=== PATIENT | female | born 1960 | race Caucasian/White ===

== ENCOUNTER → 2018-02-19 | Outpatient (CLI) | payer BC ==
[~2018-02-19] MED LIST: CETI10TA20 PO; ESTR1TAB24 PO; FLUT9.9S NSEACH; GUAI1CAP52 PO; HYDR-34 PO; IBUP-1773 PO; LEVO75TA6 PO; LORA10TA76 PO; MEDR5TAB4 PO; TRAZ-189 PO
--- NOTE | 2018-02-19 12:02 | Diagnostic Imaging Report ---
INDICATION: Routine screening. COMPARISON: 05/13/2016 and 04/13/2012. TECHNIQUE: Screening digital mammography was performed bilaterally with a Computer Aided Detection (CAD) system. 3D tomographic images were obtained and reviewed. FINDINGS: Both breasts are heterogeneously dense, limiting the sensitivity of mammography. There are benign-appearing calcifications bilaterally. No dominant mass or malignant appearing microcalcifications are seen. The axillae are unremarkable. IMPRESSION: No mammographic features suspicious for malignancy are identified. ACR BI-RADS Category 2: Benign findings. Result letter will be mailed to the patient. Note: At least 10% of breast cancer is not imaged by mammography. Dictated by: Dictated on workstation # [id number]
== END ==
LOC: RAD 09:53
PROVIDERS: ATTEND Obstetrics & Gynecology
DX: Z12.31 Encounter for screening mammogram for malignant neoplasm of breast (principal)
CPT/HCPCS: 77067

== ENCOUNTER 2019-02-24 08:57 | Outpatient (CLI) | payer BC ==
[~2019-02-24] VITALS: Ht 162.6 cm; Wt 64.4 kg
== END 2019-02-24 12:45 | disposition home or self-care (01) ==
LOC: PREOP 08:57
PROVIDERS: ATTEND Surgery
DX: Z01.818 Encounter for other preprocedural examination (principal)

== ENCOUNTER 2019-02-25 13:41 | Day surgery (SDC) | payer BC ==
[~2019-02-25] VITALS: Ht 162.6 cm; Wt 64.4 kg
[2019-02-25 13:40] VITALS: BP 124/73
--- NOTE | 2019-02-25 13:48 | Conscious Sedation/ASA ---
Conscious Sedation Pre-Proced Time 13:45 ASA Score 2 For ASA 3 and 4: Consider anesthesia and medical clearance. Also, for patients with a history of failed moderate sedation consider anesthesia. Airway Lungs Heart ASA score ASA 1: a normal healthy patient ASA 2: a patient with a mild systemic disease (mid diabetes, controlled hypertension, obesity ASA 3: a patient with a severe systemic disease that limits activity (angina , COPD, prior Myocardial infarction) ASA 4: a patient with an incapacitating disease that is a constant threat to life (CHF, renal failure) ASA 5: a moribund patient not expected to survive 24 hrs. (ruptured aneurysm) ASA 6: a declared brain- patient whose organs are being harvested. For emergent operations, add the letter E after the classification Mallampati Classification Grade 2 Sedation Plan Analgesia, Amnesia, Plan communicated to team members, Discussed options with patient/fam, Discussed risks with patient/fam The patient is an appropriate candidate to undergo the planned procedure, sedation, and anesthesia. The patient immediately re-assessed prior to indication. BARBI BAER MD Feb 25, 2019 13:48
[2019-02-25] MEDS ORDERED: NS IV 500 ML 500 ML IV PRN (13:49)
--- NOTE | 2019-02-25 13:49 | Progress Note-Pre Operative ---
Pre-Operative Progress Note H&P Reviewed The H&P was reviewed, patient examined and no changes noted. Date Seen by Provider: Feb 25, 2019 Time Seen by Provider: 13:45 Date H&P Reviewed: Feb 25, 2019 Time H&P Reviewed: 13:45 Pre-Operative Diagnosis: screening o BARBI BAER MD Feb 25, 2019 13:49
[2019-02-25] MEDS ORDERED: NS IV 500 ML 500 ML ONE (13:55)
[2019-02-25] MEDS ORDERED: ACETAMINOPHEN 325 MG TABLET PO PRN (14:00)
[2019-02-25] MEDS ORDERED: morphine INJ 10 MG/ML 1ML (SYR OR VIAL) IV PRN (14:00)
[2019-02-25] MEDS ORDERED: LIDOCAINE JELLY 2% 6 ML SYRINGE MM PRN (14:00)
[2019-02-25] MEDS ORDERED: MIDAZOLAM 2 MG/2 ML (VERSED) VIAL IVP ONE (14:00)
[2019-02-25] MEDS ORDERED: ONDANSETRON 4 MG/2 ML (SDV) Z0FRAN IV PRN (14:00)
[2019-02-25] MEDS ORDERED: HYDROcodone/APAP 5 MG/325 MG (LORTAB) TAB PO PRN (14:00)
[2019-02-25] MEDS ORDERED: fentaNYL INJECTION 100 MCG/2 ML AMP ONE ×2 (15:00)
[2019-02-25] MEDS ORDERED: LIDOCAINE JELLY 2% 6 ML SYRINGE ONE (15:00)
[2019-02-25] MEDS ORDERED: MIDAZOLAM 2 MG/2 ML (VERSED) VIAL ONE ×3 (15:01)
[2019-02-25] MEDS: fentaNYL INJECTION 100 MCG/2 ML AMP IVP ONE (15:20)
[2019-02-25 16:20] VITALS: BP 112/63
--- NOTE | 2019-02-25 16:34 | Progress Note-Post Operative ---
Post-Operative Progess Note Surgeon (s)/Oilseed Meat Presser (s) Surgeon BARBI BAER MD Oilseed Meat Presser: none Pre-Operative Diagnosis screening colo Post-Operative Diagnosis chronic stage 2 ext and int hemorrhoids. Procedure & Operative Findings Date of Procedure 02/25/19 Procedure Performed/Findings Colonoscopy. Anesthesia Type cs Estimated Blood Loss Estimated blood loss (mL): minimal Specimens/Packing Specimens Removed none BARBI BAER MD Feb 25, 2019 16:34
--- NOTE | 2019-02-25 16:36 | Discharge Inst-Surgical ---
D/C Lap Instructions-KEYUR Follow Up 10 yrs Activity as tolerated High Fiber Diet 25g or more per day Avoid Alcohol, Caffeine, Spicy [place] and Acid foods. Drink 64 fluid oz or more of fluids per day. Symptoms to Report: Fever over 101 degree F, Nausea/Vomiting If any problems/questions: Contact your physician or go to Emergency Room BARBI BAER MD Feb 25, 2019 16:36
[2019-02-25 16:45] VITALS: BP 127/74
[2019-02-25 16:55] VITALS: BP 127/74
--- NOTE | 2019-02-26 01:53 | OPERATIVE REPORT ---
DATE OF SERVICE: 02/25/2019 ATTENDING PRIMARY CARE PHYSICIAN: Dr. Divina Kovacs. PREOPERATIVE DIAGNOSIS: Screening colonoscopy. POSTOPERATIVE DIAGNOSIS: Mild chronic stage II external and internal hemorrhoids. PROCEDURE: Colonoscopy. SURGEON: Barbi Baer MD ANESTHESIA: Conscious sedation. ESTIMATED BLOOD LOSS: Minimal. FINDINGS: Chronic stage II external as well as internal hemorrhoids. There was slight edema of the internal hemorrhoids, most likely secondary from the colonic prep. Remainder of the rectum and colon were normal. There were no polyps or any neoplasms identified. DISPOSITION: The patient tolerated the procedure well. INDICATIONS: The patient is a 58-year-old female referred over to us for screening colonoscopy. Her last colonoscopy was 10 years ago and she believes that to be normal. She states that for the most part she is doing well, does not report any major issues with diarrhea nor constipation as well as no red blood per rectum nor any dark tarry stools. She also does not report any family history of colon cancer. DESCRIPTION OF PROCEDURE: The patient was brought to the endoscopy suite, laid in the left lateral decubitus position. After adequate IV pain and sedative medications and conscious sedation anesthesia, a digital rectal examination was performed. Chronic stage II external and internal hemorrhoids identified. There was slight edema and palpable, slightly engorged internal hemorrhoids. This was confirmed on the endoscope. There was no active bleeding. No palpable masses. The endoscope was then intubated to the anus, rectum and gently insufflated. The endoscope was then advanced to the valves of Shook of the rectum with no polyps or any neoplasms identified. The endoscope was then advanced through the sigmoid colon where no diverticulosis identified. We then proceeded to remainder of the descending, transverse, ascending colon and the cecum. These segments were normal. There were no polyps or neoplasms identified throughout the colon or rectum. Endoscope was then slowly withdrawn while taking a second look and suctioning residual air with no additional findings. The patient tolerated the procedure well. We will recommend continued medical management with a high fiber diet with at least 25 grams of fiber per day as well as significant amounts of water to promote soft stools on a daily basis. She does not need another colonoscopy for another 10 years; however, sooner if she becomes symptomatic. Job ID: [id number] DocumentID: [id number] Dictated Date: 02/25/2019 15:44:47 Transportation Engineer Date: 02/26/2019 01:52:12 Dictated By: BARBI BAER MD
== END 2019-02-25 16:55 | disposition home or self-care (01) ==
LOC: ENDO 13:41
PROVIDERS: ATTEND Surgery
DX: Z12.11 Encounter for screening for malignant neoplasm of colon (principal); K64.1 Second degree hemorrhoids; E06.3 Autoimmune thyroiditis; F41.9 Anxiety disorder, unspecified; G47.00 Insomnia, unspecified; Z79.899 Other long term (current) drug therapy

== ENCOUNTER 2020-03-06 08:11 | Emergency (ER) | payer BC ==
[~2020-03-06] VITALS: Ht 170 cm; Wt 67.0 kg
[~2020-03-06 08:11] MED LIST changes: -CETI10TA20 PO; +CETI10TA21 PO; -TRAZ-189 PO; +TRZ50T PO
--- NOTE | 2020-03-06 08:20 | NUR ---
CT notified to get table ready
--- OUTSIDE RECORDS SUMMARY | 2020-03-06 08:21 | XMS REPORT | Clinical Summary ---
Author Author [facility] Organization [facility] Address Unknown Phone Unavailable Care Team Providers Care Gas And Oil Checker Name Role Phone Divina Kovacs PCP Allergies Not on File Medications Not on file Active Problems Not on file Social History Date Tobacco Use Types Packs/Day Years Used Never Assessed Sex Assigned at Date Recorded Not on file Industry Job Start Date Occupation Not on file Not on file Not on file Travel End Travel History Travel Start No recent travel history available. Last Filed Vital Signs Not on file Plan of Treatment Health Maintenance Due Date Last Done Comments Hepatitis C Screen 1960 Td # 1960 Cervical Cancer Screening 1979 via Pap Smear Colorectal Screening via 2008 Colonoscopy Mammogram Screening 2008 Zoster Vaccine# (1 of 2) 2008 Influenza Vaccine (Season 09/09/2020 Ended) Pneumococcal Vaccine: Aged Out No longer eligib le based on patient's age to Pediatrics (0 to 5 Years) complete this topic and At-Risk Patients (6 to 64 Years) Results Not on filefrom Last 3 Months Insurance Type Payer Benefit Subscriber ID Effective Phone Address Plan / Dates Group [facility] xxxxxxxxxxxx [id number] PREFERRED [facility] [address] (Home) [place], [place] [address] Domitila Hansen Personal/F Self [address]) [place], [place] [address] Ro Hansena Personal/F Self [address] (Home) [place], [place] [address] Advance Directives For more information, please contact: [phone] 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
--- OUTSIDE RECORDS SUMMARY | 2020-03-06 08:21 | XMS REPORT | Encounter Summary ---
Author Author [facility] Organization [facility] Address Unknown Phone Unavailable Care Team Providers Care Hop Weigher Name Role Phone Divina Kovacs PCP Reason for Referral * MRI/CAT/PET Scan (Routine) Referred By Contact Referred To Contact Status Reason Specialty Diagnoses / Procedures No, Ordering D, DO Closed Diagnoses Health care maintenance P rocedures CV CT Cardioscan Encounter Details Care Team Description Date Type Department No, Ordering D, DO [phone] Health care maintenance (Primary Dx) 11/12/2017 Transcribe [facility] Orders [address] [place] [id number] Social History Date Tobacco Use Types Packs/Day Years Used Never Assessed Sex Assigned at Date Recorded Not on file Industry Job Start Date Occupation Not on file Not on file Not on file Travel End Travel History Travel Start No recent travel history available. documented as of this encounter Plan of Treatment Not on filedocumented as of this encounter Results * CV CT Cardioscan (11/14/2017 9:11 AM NECKTIE STITCHER) Calcium Score 10.3 [facility] Specimen Narrative Performed At [facility] NAME: DOMITILA HANSEN : [id number] GENDER: f MRN: ACCOUNT NUM: [id number] TEST: Coronary Calcium Score TEST DATE: TEST LOCATION: [facility] INPATIENT: INDICATION FOR TEST: Positive Family History SYMPTOMS: Chest Pain PROTOCOL: High-resolution, ECG-synchr onized Computed Tomography (CT) of the heart and coronary arteries was perform ed using a Multi-Detector Computed Tomography (MDCT). Each slice acquire d was 3 mm thick using a 3 mm slice to slice step. The average heart rate of the patient was 78 bpm an d varied over a range of 20 bpm. There were no image artifacts.. REPORT: Based on the size and density of the calcium deposits in each artery, a calcium score was computed using [employer] volumetric cardiac scoring software. Such deposits are markers for underly ing coronary atherosclerosis. The coronary artery calcium score enables a person to sheng re his or her level of coronary calcification to levels found in health y individuals of the same age and gender. The score is an indicator of the like lihood for significant coronary artery obstruction and the risk of a subsequent cardiac event. Coronary Artery: Left Main, # of Lesion s: 0, Volume Score: 0, Mass Score: 0, Agatston Score: 0 Coronary Artery: LAD, # of Lesions: 3, Volume Score: 10.6, Mass Score: 2.96, Agatston Score: 10.3 Coronary Artery: LCX, # of Lesions: 0, Volume Score: 0, Mass Score: 0, Agatston Score: 0 Coronary Artery: RCA, # of Lesions: 0, Volume Score: 0, Mass Score: 0, Agatston Score: 0 Coronary Artery: Total, # of Lesions: 3 , Volume Score: 10.6, Mass Score: 2.96, Agatston Score: 10.3. The Agatston score indicates Mild Calci fication. The total Agatston score of 10.3 ranks DOMITILA HANSEN within the Intermediate Risk Category for females, of similar a ge. (Note: the database only contains persons between the ages of 30 and 79.) OTHER COMMENTS: This is a limited CT scan of the chest for evaluation of coronary artery calcification only and is not intended for any other purpose. Please refer to the attached recommen dations provided to you at the time of your Cardioscan study for further information. Golden Tsang MD [address] [facility], [address] [place] [address] PROVIDER APPROVAL DATETIME: 12:54:48.0 Procedure Note Interface, External Ris In - 11/16/2017 1:01 PM NECKTIE STITCHER NAME: DOMITILA HANSEN : [id number] GENDER: f MRN: ACCOUNT NUM: [id number] TEST: Coronary Calcium Score TEST DATE: TEST LOCATION: [facility] INPATIENT: INDICATION FOR TEST: Positive Family History SYMPTOMS: Chest Pain PROTOCOL: High-resolution, ECG-synchronized Computed Tomography (CT) of the heart and coronary arteries was performed using a Multi-Detector Computed Tomography (MDCT). Each slice acquired was 3 mm thick using a 3 mm slice to slice step. The average heart rate of the patient was 78 bpm and varied over a range of 20 bpm. There were no image artifacts.. REPORT: Based on the size and density of the calcium deposits in each artery, a calcium score was computed using Siemens volumetric cardiac scoring software. Such deposits are markers for underlying coronary atherosclerosis. The coronary artery calcium score enables a person to compare his or her level of coronary calcification to levels found in healthy individuals of the same age and gender. The score is an indicator of the likelihood for significant coronary artery obstruction and the risk of a subsequent cardiac event. Coronary Artery: Left Main, # of Lesions: 0, Volume Score: 0, Mass Score: 0, Agatston Score: 0 Coronary Artery: LAD, # of Lesions: 3, Volume Score: 10.6, Mass Score: 2.96, Agatston Score: 10.3 Coronary Artery: LCX, # of Lesions: 0, Volume Score: 0, Mass Score: 0, Agatston Score: 0 Coronary Artery: RCA, # of Lesions: 0, Volume Score: 0, Mass Score: 0, Agatston Score: 0 Coronary Artery: Total, # of Lesions: 3, Volume Score: 10.6, Mass Score: 2.96, Agatston Score: 10.3. The Agatston score indicates Mild Calcification. The total Agatston score of 10.3 ranks DOMITILA HANSEN within the Intermediate Risk Category for females, of similar age. (Note: the database only contains persons between the ages of 30 and 79.) OTHER COMMENTS: This is a limited CT scan of the chest for evaluation of coronary artery calcification only and is not intended for any other purpose. Please refer to the attached recommendations provided to you at the time of your Cardioscan study for further information. Golden Tsang MD [address] [facility], [address] [place] [address] PROVIDER APPROVAL DATETIME: 2017-11-16 12:54:48.0 Performing Organization Address City/State/Zipcode Ph one Number [facility] documented in this encounter Visit Diagnoses Diagnosis Health care maintenance documented in this encounter
--- OUTSIDE RECORDS SUMMARY | 2020-03-06 08:21 | XMS REPORT | Encounter Summary ---
Author Author [facility] Organization [facility] Address Unknown Phone Unavailable Care Team Providers Care Directory Compiler Name Role Phone Divina Kovacs PCP Reason for Referral * MRI/CAT/PET Scan (Routine) Referred By Contact Referred To Contact Status Reason Specialty Diagnoses / Procedures No, Ordering D, DO Closed Diagnoses Health care maintenance P rocedures CV CT Cardioscan Reason for Visit * MRI/CAT/PET Scan (Routine) Referred By Contact Referred To Contact Status Reason Specialty Diagnoses / Procedures No, Ordering D, DO Closed Diagnoses Health care maintenance P rocedures CV CT Cardioscan Encounter Details Care Team Description Date Type Department Divina Kovacs MD [address] [place] [id number] Health care maintenance 11/14/2017 [place] [address] Social History Date Tobacco Use Types Packs/Day Years Used Never Assessed Sex Assigned at Date Recorded Not on file Industry Job Start Date Occupation Not on file Not on file Not on file Travel End Travel History Travel Start No recent travel history available. documented as of this encounter Plan of Treatment Not on filedocumented as of this encounter Procedures Comments Procedure Name Priority Date/Time Associated Diag nosis CV CT CARDIOSCAN Routine 11/14/2017 Health care aintenance 9:11 AM ASSISTANT MERCHANDISE MANAGER documented in this encounter Results * CV CT Cardioscan (11/14/2017 9:11 AM ASSISTANT MERCHANDISE MANAGER) Calcium Score 10.3 [facility] Specimen Narrative Performed At [facility] NAME: DOMITILA HANSEN : [id number] GENDER: f MRN: LETTY NUM: [id number] TEST: Coronary Calcium Score TEST DATE: TEST LOCATION: [facility] INPATIENT: INDICATION FOR TEST: Positive Family History [...] artery, a calcium score was computed using [employer] volumetric cardiac scoring software. Such deposits are [...] for further information. Golden Tsang MD [address] [facility], [address] [place] [address] PROVIDER APPROVAL DATETIME: 12:54:48.0 Procedure Note Interface, External Ris In - 11/16/2017 1:01 PM ASSISTANT MERCHANDISE MANAGER NAME: DOMITILA HANSEN : [id number] GENDER: f MRN: LETTY NUM: [id number] TEST: Coronary Calcium Score TEST DATE: TEST LOCATION: [facility] INPATIENT: INDICATION FOR TEST: Positive Family History [...] for further information. Golden Tsang MD [address] [facility], [address] [place] [address] PROVIDER APPROVAL DATETIME: 2017-11-16 12:54:48.0 Performing Organization Address City/State/Zipcode Ph one Number [facility] documented in this encounter Visit Diagnoses Diagnosis Health care maintenance documented in this encounter
--- NOTE | 2020-03-06 08:24 | NUR ---
patient to imaging department at this time
--- NOTE | 2020-03-06 08:41 | ED Neurological Problem ---
General Chief Complaint: Neuro-Stroke Like Symptoms Stated Complaint: STROKE LIKE SYMPTOMS Nursing Triage Note: Pt reports feeling confused upon waking this morning, stating it took her nearly 45 minutes this morning to find her clothes and other belongings. Pt having difficulty getting thoughts out during triage and becoming frustrated with inability to find words. Pt also reports headache. Nursing Sepsis Screen: No Definite Risk Source: patient (SOME EXPRESSIVE APHASIA) History of Present Illness Date Seen by Provider: Mar 06, 2020 Time Seen by Provider: 08:15 Initial Comments PT ARRIVES VIA POV FROM HOME STATES SHE WOKE UP AROUND 0600 THIS AM, AND WAS HAVING A HARD TIME REMEMBERING THINGS AND HARD TIME TALKING "FOR ABOUT 45 MINUTES" STATES SHE FEELS BETTER ( HOWEVER, PT IS NOTED TO BE HAVING SOME EXPRESSIVE APHASIA/PROBLEMS WITH WORD FINDING) PT IS ABLE TO RECALL ALL EVENTS OF THIS MORNING STATES SHE COULDN'T FIGURE OUT HOW TO HOOK HER BRA, COULDN'T FIGURE OUT HOW TO GET HER CLOTHES OFF THE HANGAR, COULDN'T FIGURE OUT HOW TO PUT TOOTHPASTE ON TOOTHBRUSH, EXAMPLES STATES "EVERYTHING FEELS OUT OF WHACK" DENIES PROBLEMS WALKING BUT STATES SHE WAS TRYING TO GET TO BED/COUCH AND "FELT LIKE I JUST COULDN'T GET TO IT" DENIES DIZZINESS C/O HEADACHE TO LEFT EVANGELICAL AREA--COMES AND GOES--HAS NOT TAKEN ANYTHING FOR HEADACHE NO VISION CHANGES NO PARESTHESIAS OR MOTOR DEFICITS NO FALLING/LOSS OF BALANCE NO RECENT ILLNESS, FEVER, ETC. NO HISTORY OF SIMILAR NO KNOWN EXPOSURE TO COVID-19, OR SICK CONTACTS NO RECENT TRAVEL PCP: DR TOBIN--HAD AN APPOINTMENT THIS MORNING AT 0800 FOR ANNUAL EXAM., BUT CAME HERE INSTEAD. Allergies and Home Medications Allergies Coded Allergies: No Known Drug Allergies (Verified , 02/25/19) Home Medications Levothyroxine Sodium 75 Mcg Tablet, 75 MCG PO DAILY, (Reported) Trazodone HCl 50 Mg Tablet, 100 MG PO HS, (Reported) Patient Home Medication List Home Medication List Reviewed: Yes Review of Systems Review of Systems Constitutional: no symptoms reported; No chills, No diaphoresis, No dizziness, No fever, No malaise, No weakness Eyes: No Symptoms Reported; Denies Blurred Vision, Denies Decreased Acuity, Denies Photophobia, Denies Vision Changes Ears, Nose, Mouth, Throat: no symptoms reported; denies ear pain, denies nose discharge, denies throat pain Respiratory: no symptoms reported; No cough, No short of breath, No wheezing Cardiovascular: no symptoms reported; No chest pain, No edema, No palpitations, No syncope Gastrointestinal: no symptoms reported; No abdominal pain, No diarrhea, No nausea, No vomiting Genitourinary: no symptoms reported Musculoskeletal: no symptoms reported; No back pain, No neck pain Skin: no symptoms reported; No pruritus, No rash Psychiatric/Neurological: See HPI, Cognitive Dysfunction, Headache; Denies Numbness, Denies Tingling, Denies Tonic Clonic Seizures, Denies Weakness Endocrine: No Symptoms Reported Hematologic/Lymphatic: No Symptoms Reported Past Cegnmvg-[id number]-Ktnxiq Hx Past Med/Social Hx: Reviewed and Corrections made Patient Social History Recreational Drug Use: No Smoking Status: Never a Smoker Recent Foreign Travel: No Contact w/Someone Who Travel: No Recent Infectious Disease Expo: No Recent Hopitalizations: No Seasonal Allergies Seasonal Allergies: Yes Past Medical History Surgeries: Yes (bladder sling, partial thyroidectomy) Bladder Surgery, Hysterectomy, Thyroidectomy Respiratory: No Cardiac: No Neurological: No 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 Sexually Transmitted Disease: No HIV/AIDS: No Genitourinary: No Gastrointestinal: No Chronic Constipation Musculoskeletal: No Endocrine: Yes (PARTIAL THYROIDECTOMY FOR BENIGN DISEASE) HEENT: No Cancer: No Psychosocial: Yes Anxiety Integumentary: No Blood Disorders: No Family Medical History Cardiovascular disease 19 MOTHER G8 BROTHER Completed stroke 19 MOTHER Diabetes mellitus 19 FATHER G8 SISTER Hypertension 19 MOTHER G8 BROTHER Myocardial infarction 19 MOTHER Thyroid disease G8 SISTER Physical Exam Vital Signs Vital Signs - First Documented 03/06/20 03/06/20 08:16 11:37 Temp 36.3 Pulse 80 Resp 18 B/P (MAP) 122/82 (95) Pulse Ox 98 O2 Delivery Room Air Capillary Refill : Less Than 3 Seconds Height, Weight, BMI Height: 5'4.00" Weight: 142lbs. 0.0oz. [id number]; 23.00 BMI Method: General Appearance: WD/WN, no apparent distress HEENT: normal ENT inspection, TMs normal, pharynx normal Neck: non-tender, full range of motion, supple, normal inspection; No carotid bruit Respiratory: normal breath sounds, no respiratory distress, no accessory muscle use Cardiovascular: normal peripheral pulses, regular rate, rhythm, no edema, no gallop, no JVD, no murmur Peripheral Pulses: 2+ Dorsalis Pedis (R), 2+ Left Dors-Pedis (L), 2+ Radial Pulses (R), 2+ Radial Pulses (L) Gastrointestinal: normal bowel sounds, non tender, soft, no organomegaly, no pulsatile mass Back: normal inspection, no CVA tenderness, no vertebral tenderness Extremities: normal range of motion, non-tender, normal inspection, no pedal edema, no calf tenderness, normal capillary refill Neurologic/Psychiatric: 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 ) Crainal Nerves: PERRL, abnormal speech ( ABOVE. ); No facial asymmetry, No facial droop, No facial paresthesias, No facial weakness, No gaze palsy, No hearing deficit (R), No hearing deficit (L), No tongue deviation to R, No tongue deviation to L Coordination/Gait: normal finger to nose, normal gait, negative Romberg's sign Motor/Sensory: no motor deficit, no sensory deficit, no pronator drift Reflexes: 2+ Bicep (R), 2+ Bicep (L), 2+ Knee (R), 2+ Knee (L) Skin: normal color, warm/dry; No rash Stroke NIH Stroke Scale Assessment Level of Consciousness: 0=Alert (0), Level of Consciousness-Questions: 0=Answers both month/age (0), LOC Commands: 0=Performs both tasks (0), Gaze: Normal (0), Visual Duran: 0=No visual loss (0), Facial Movement (Facial Paresis): 0=Normal symmetrical mnt (0), Motor Function-Arms Right: 0=No drift (0), Motor Function-Arms Left: 0=No drift (0), Motor Function-Legs Right: 0=No drift (0), Motor Function-Legs Left: 0=No drift (0), Limb Ataxia: 0=Absent (0), Sensory: 0=Normal:no loss (0), Best Language: 1=Mild to moderat aphasia (1), Dysarthria: 0=Normal (0), Extinction & Inattention: 0=No abnormality (0), Total: 1 Stroke Thrombolytic Exclusion Age 18 or Over: Yes Acute intenal hemorrhage: No History of CVA: No Uncontrolled Coagulation Defec: No Intracranial Hemorrhage: No Severe Hypertension: No GI or Bleed: No Subarachnoid Hemorrhage: No Intracranial Neoplasm/Aneurysm: No Oral Anticoagulants: No Surgery or Trauma: No Puncture of Non-Compressible V: No Recent CPR: No Diabetic Hemorrhagic Retinopat: No Organ Biopsy: No Recent Obstetric Delivery: No Glucose: No Significant Hepatic Dysfunctio: No NIH Stoke Scale >22: No Bacterial Endocarditis: No Pericarditis: No Improving Symptoms: Yes Platelets: No TPA Contraindication: No IV - TPa Received IV - TPa Procedure Performed?: No (TIME OF ONSET IS UNKNOWN ( WOKE UP WITH SYMPTOMS) AND SYMPTOMS ARE MILD, WITH NIH OF 1) Progress/Results/Core Measures Results/Orders Lab Results Laboratory Tests Test 03/06/20 08:40 03/06/20 08:47 03/06/20 08:49 Range/Units White Blood Count 6.2 4.3-11.0 10^3/uL Red Blood Count 4.76 4.35-5.85 10^6/uL Hemoglobin 14.7 11.5-16.0 G/DL Hematocrit 44 35-52 % Mean Corpuscular Volume 92 80-99 FL Mean Corpuscular Hemoglobin 31 25-34 PG Mean Corpuscular Hemoglobin Concent 34 32-36 G/DL Red Cell Distribution Width 12.7 10.0-14.5 % Platelet Count 197 130-400 10^3/uL Mean Platelet Volume 10.3 7.4-10.4 FL Neutrophils (%) (Auto) 66 42-75 % Lymphocytes (%) (Auto) 26 12-44 % Monocytes (%) (Auto) 5 0-12 % Eosinophils (%) (Auto) 2 0-10 % Basophils (%) (Auto) 1 0-10 % Neutrophils # (Auto) 4.1 1.8-7.8 X 10^3 Lymphocytes # (Auto) 1.6 1.0-4.0 X 10^3 Monocytes # (Auto) 0.3 0.0-1.0 X 10^3 Eosinophils # (Auto) 0.2 0.0-0.3 10^3/uL Basophils # (Auto) 0.0 0.0-0.1 10^3/uL Prothrombin Time 13.5 12.2-14.7 SEC INR Comment 1.0 0.8-1.4 Activated Partial Thromboplast Time 25 24-35 SEC D-Dimer 3.81 H 0.00-0.49 UG/ML Sodium Level 138 135-145 MMOL/L Potassium Level 3.9 3.6-5.0 MMOL/L Chloride Level 105 98-107 MMOL/L Carbon Dioxide Level 22 21-32 MMOL/L Anion Gap 11 5-14 MMOL/L Blood Urea Nitrogen 17 7-18 MG/DL Creatinine 0.76 0.60-1.30 MG/DL Estimat Glomerular Filtration Rate > 60 BUN/Creatinine Ratio 22 Glucose Level 101 70-105 MG/DL Calcium Level 8.9 8.5-10.1 MG/DL Corrected Calcium 8.8 8.5-10.1 MG/DL Total Bilirubin 0.3 0.1-1.0 MG/DL Aspartate Amino Transf (AST/SGOT) 17 5-34 U/L Alanine Aminotransferase (ALT/SGPT) 11 0-55 U/L Alkaline Phosphatase 85 40-136 U/L Troponin I < 0.028 <0.028 NG/ML Total Protein 7.3 6.4-8.2 GM/DL Albumin 4.1 3.2-4.5 GM/DL Glucometer 103 70-110 MG/DL Urine Color YELLOW Urine Clarity CLEAR Urine pH 8.5 5-9 Urine Specific [place] 1.015 L 1.016-1.022 Urine Protein TRACE H NEGATIVE Urine Glucose (UA) NEGATIVE NEGATIVE Urine Ketones NEGATIVE NEGATIVE Urine Nitrite NEGATIVE NEGATIVE Urine Bilirubin NEGATIVE NEGATIVE Urine Urobilinogen 0.2 < = 1.0 MG/DL Urine Leukocyte Esterase NEGATIVE NEGATIVE Urine RBC (Auto) NEGATIVE NEGATIVE Urine RBC NONE /HPF Urine WBC NONE /HPF Urine Squamous Epithelial Cells NONE /HPF Urine Crystals NONE /LPF Urine Bacteria NEGATIVE /HPF Urine Casts NONE /LPF Urine Mucus NEGATIVE /LPF Urine Culture Indicated NO My Orders Orders - PAOLA JOYA DO Cbc With Automated Diff (03/06/20 08:15) Protime With Inr (03/06/20 08:15) Partial Thromboplastin Time (03/06/20 08:15) Comprehensive Metabolic Panel (03/06/20 08:15) Fibrin Degradation Products (03/06/20 08:15) Troponin I (03/06/20 08:15) Ua Culture If Indicated (03/06/20 08:15) Chest 1 View, Ap/Pa Only (03/06/20 08:15) Ekg Tracing (03/06/20 08:15) Nothing By Mouth (03/06/20 Lunch) Accucheck Stat ONCE (03/06/20 08:15) Ed Iv/Invasive Line Start (03/06/20 08:15) Ed Iv/Invasive Line Start (03/06/20 08:15) Vital Signs Stroke Patient Q15M (03/06/20 08:15) Ct Head Wo-R/O Stroke (03/06/20 08:15) O2 (03/06/20 08:15) Intake & Output 06,14,22 (03/06/20 08:15) Monitor-Rhythm Ecg Trace Only (03/06/20 08:15) Dysphagia Screening Tool (03/06/20 08:15) Ct Angio Head/Neck (03/06/20 08:40) Iohexol Injection (Omnipaque 350 Mg/Ml 1 (03/06/20 09:00) Received Contrast (Hold Metformin- Contr (03/06/20 09:00) Ns (Ivpb) (Sodium Chloride 0.9% Ivpb Bag (03/06/20 09:00) Aspirin Chewable Tablet (Baby Aspirin Ch (03/06/20 10:45) Medications Given in ED Vital Signs/I&O 03/06/20 03/06/20 08:16 11:37 Temp 36.3 36.3 Pulse 80 82 Resp 18 18 B/P (MAP) 122/82 (95) 129/94 (95) Pulse Ox 98 O2 Delivery Room Air Room Air Blood Pressure Mean: 95 Progress Progress Note : Progress Note NO DETERIORATION IN PT'S CONDITION DURING ER STAY Initial ECG Impression Date: Mar 06, 2020 Initial ECG Impression Time: 08:40 Initial ECG Rate: 70 Initial ECG Rhythm: Normal Sinus Diagnostic Imaging Comments CT HEAD--NO ACUTE PROCESS, PER RADIOLOGIST VIA PHONE [place] 0840 CT ANGIOGRAM HEAD/NECK--PER RADIOLOGIST VIA PHONE AT 1010 IMPRESSION: 1: There is complete occlusion beginning at the proximal aspects of 2 inferior left M2 MCA branches seen in the inferior left sylvian fissure region. The remainder of the left MCA vessels and distal branches are patent. 2: There are no other areas of large vessel occlusion, significant stenosis, or aneurysm. 3: Fibromuscular dysplasia findings involving the mid to distal cervical right ICA with no evidence of pseudoaneurysm or dissection. 4: There is no evidence of intracranial hemorrhage or gross loss of driscoll-white matter distinction seen on this exam. Results of this report was discussed with Dr. Paola Joya via the telephone 03/06/2020 at 1010 hours. Reviewed: Reviewed by Me Departure Communication (Admissions) 1032--SPOKE WITH , PAGING NEUROLOGIST 1036--SPOKE WITH DR. COX. SHE ADVISES THAT PT IS NOT A CANDIDATE FOR TPA OR INTERVENTION AT THIS TIME. HOWEVER, SHE ADVISES TRANSFER TO PT IS AT RISK FOR EXTENSION OF OCCLUSION/WORSENING OF SYMPTOMS, AND WOULD BE BETTER SERVED AT TERTIARY FACILITY. SHE ADVISES ONLY 81 MG ASPIRIN AT THIS TIME. Impression Primary Impression: CVA WITH EXPRESSIVE APHASIA Additional Impression: Cerebrovascular accident due to cerebral artery occlusion Disposition: 02 XFER SHT-TRM HOSP Condition: Stable Transfer Transfer Reason: Exceeds level of care (NEED FOR NEUROLOGY/INTERVENTIONAL NEURORADIOLOGY/NEUROSURGICAL SERVICES UNAVAILABLE HERE) Transfer Facility: Method of Transfer: EMS Departure-Patient Inst. Referrals: CIARA TOBIN MD (PCP/Family) Primary Care Physician PAOLA JOYA DO Mar 06, 2020 08:41
--- NOTE | 2020-03-06 08:43 | Diagnostic Imaging Report ---
CLINICAL INDICATION: Patient unable to do morning functions, such as getting dressed. EXAM: Axial CT scan of the brain without IV contrast . Auto Exposure Controls were utilized during the CT exam to meet ALARA standards for radiation dose reduction. COMPARISON: None. FINDINGS: There is skull streak artifact which obscures portions of the brainstem, posterior fossa, and portions of the brain near the skull base. There is no evidence of acute cerebral infarct, intracranial hemorrhage, or gross mass effect. The brain parenchymal volume appears appropriate for patient's age. There are subtle focal patchy areas of low-attenuation white matter changes involving both cerebral hemispheres, likely representing mild chronic small vessel ischemic disease. There is normal driscoll-white matter distinction. There is no significant midline shift or herniation. There is no evidence of hydrocephalus. The basal cisterns are unremarkable. The skull, extracranial soft tissue, and orbits are unremarkable. The paranasal sinuses are unremarkable. Temporal bones show no significant abnormality. IMPRESSION: Unremarkable CT scan of the brain for age. The results of this report were discussed with Dr. Paola Joya via the telephone on 03/06/2020 at 0840 hours. Dictated by: Dictated on workstation # [id number]
--- NOTE | 2020-03-06 08:46 | Diagnostic Imaging Report ---
EXAMINATION: Chest 1 view HISTORY: Strokelike symptoms. COMPARISON: None available. FINDINGS: The lung volumes are normal. No focal consolidation is seen. No large pleural effusion or pneumothorax is seen. The cardiomediastinal silhouette is normal in size and contour. No acute osseous abnormality is seen. IMPRESSION: 1. No acute pleuroparenchymal process. Dictated by: Dictated on workstation # [id number]
[2020-03-06 08:56] LABS: BILIRUBIN,URINE NEGATIVE (NEGATIVE); CLARITY,URINE CLEAR; COLOR,URINE YELLOW; GLUCOSE, URINE (UA) NEGATIVE (NEGATIVE); KETONES,URINE NEGATIVE (NEGATIVE); LEUKOCYTE ESTERASE ,URINE NEGATIVE (NEGATIVE); NITRITE,URINE NEGATIVE (NEGATIVE); PH,URINE 8.5 (5-9); PROTEIN,URINE TRACE (NEGATIVE)
[2020-03-06 08:58] LABS: BASOPHILS % (AUTO) 1 % (0-10); EOSINOPHILS # (AUTO) 0.2 10^3/uL (0.0-0.3); EOSINOPHILS % (AUTO) 2 % (0-10); HEMATOCRIT 44 % (35-52); HEMOGLOBIN 14.7 G/DL (11.5-16.0); LYMPHOCYTES # (AUTO) 1.6 X 10^3 (1.0-4.0); LYMPHOCYTES % (AUTO) 26 % (12-44); MEAN CORPUSCULAR HEMOGLOBIN 31 PG (25-34); MEAN CORPUSCULAR HGB CONC 34 G/DL (32-36); MEAN CORPUSCULAR VOLUME 92 FL (80-99); MEAN PLATELET VOLUME 10.3 FL (7.4-10.4); MONOCYTES # (AUTO) 0.3 X 10^3 (0.0-1.0); MONOCYTES % (AUTO) 5 % (0-12); NEUTROPHILS # (AUTO) 4.1 X 10^3 (1.8-7.8); NEUTROPHILS % (AUTO) 66 % (42-75); PLATELET COUNT 197 10^3/uL (130-400); RED CELL DISTRIBUTION WIDTH 12.7 % (10.0-14.5); WHITE BLOOD COUNT 6.2 10^3/uL (4.3-11.0)
[2020-03-06] MEDS ORDERED: IOHEXOL 350 MG/ML 100 ML (OMNIPAQUE 350) VIAL IV ONE (09:00)
[2020-03-06] MEDS ORDERED: NS 100 ML (IVPB) BAG IV ONE (09:00)
[2020-03-06] MEDS ORDERED: HOLD METFORMIN - RECEIVED CONTRAST 20 ML VIAL IV SCH (09:00)
[2020-03-06 09:11] LABS: BACTERIA,URINE NEGATIVE /HPF
[2020-03-06 09:16] LABS: ALANINE AMINOTRANSFERASE 11 U/L (0-55); ALBUMIN 4.1 GM/DL (3.2-4.5); ALKALINE PHOSPHATASE 85 U/L (40-136); BILIRUBIN,TOTAL 0.3 MG/DL (0.1-1.0); BUN/CREATININE RATIO 22; CALCIUM 8.9 MG/DL (8.5-10.1); CARBON DIOXIDE 22 MMOL/L (21-32); CHLORIDE 105 MMOL/L (98-107); CREATININE SERUM 0.76 MG/DL (0.60-1.30); GFR ESTIMATED > 60; GLUCOSE 101 MG/DL (70-105); POTASSIUM 3.9 MMOL/L (3.6-5.0); SODIUM 138 MMOL/L (135-145); TOTAL PROTEIN 7.3 GM/DL (6.4-8.2)
[2020-03-06 09:17] LABS: FIBRIN DEGRADATION PRODUCTS 3.81 UG/ML (0.00-0.49); PROTHROMBIN TIME PATIENT 13.5 SEC (12.2-14.7)
--- NOTE | 2020-03-06 09:37 | NUR ---
UPDATE GIVEN TO DAUGHTER JOSEPH PATIENT GAVE OK. DAUGHTER REQUEST THAT WE GIVE HER UPDATE.
--- NOTE | 2020-03-06 09:41 | NUR ---
TO CT PER W/C
--- NOTE | 2020-03-06 10:25 | Diagnostic Imaging Report ---
Clinical indication: Patient with stroke like symptoms and trouble with getting dressed, and up and around this morning. Exams: CT angiogram of the head and neck performed with 100 cc of Omnipaque 350 IV contrast. Sagittal and coronal MIP reformations were created for better visualization of vascular anatomy. Comparison: Head CT without contrast dated 03/06/2020 at 0823 hours. Findings: There is dense contrast bolus within the left subclavian vein, innominate vein and superior vena cava which streak artifact obscuring portions of the proximal great vessel. The ascending aorta is not imaged on this exam cannot be appropriately evaluated. There is common origin of the brachiocephalic artery and left common carotid consistent with bovine arch. The bilateral subclavian arteries are patent. The bilateral CCA, bilateral ECA, and bilateral cervical ICA are patent. There is vascular irregularity involving the mid and distal portion of the right cervical ICA likely related to fibromuscular dysplasia. There is no evidence of pseudoaneurysm or dissection seen. The bilateral cervical vertebral arteries are patent. Intradural bilateral vertebral arteries are patent. Left ICA PICA is noted. Right PICA is patent. The basilar artery, bilateral superior cerebellar artery and bilateral WIRE INSPECTOR are patent. The petrous and cavernous portions of the bilateral ICA are patent. The bilateral A1 DILMA is and distal branches are patent. Anterior communicating artery is patent. There is complete occlusion concern for intravascular thrombus involving the proximal aspects of 2 inferior left M2 MCA branches seen in the inferior left sylvian fissure region noted. There is also a small area of decreased vascularity in the posterior left frontal lobe MCA distribution distal to the areas of occlusion. The remainder of the left MCA vessels are patent. The right MCA and its distal branches are patent. The visualized portions of the dural venous sinuses are grossly patent. There are arachnoid granulations along the superior sagittal sinus are noted. The visualized portions of the brain parenchyma shows no gross loss of driscoll-white matter distinction, abnormal IV contrast enhancement, or intracranial hemorrhage. The left thyroid gland region is absent. There is heterogeneity of the residual small right thyroid gland region. Otherwise, the neck soft tissue structures are unremarkable. Visualized upper lung oshea are clear. Cervical spine degenerative disease is noted. IMPRESSION: 1: There is complete occlusion beginning at the proximal aspects of 2 inferior left M2 MCA branches seen in the inferior left sylvian fissure region. The remainder of the left MCA vessels and distal branches are patent. 2: There are no other areas of large vessel occlusion, significant stenosis, or aneurysm. 3: Fibromuscular dysplasia findings involving the mid to distal cervical right ICA with no evidence of pseudoaneurysm or dissection. 4: There is no evidence of intracranial hemorrhage or gross loss of driscoll-white matter distinction seen on this exam. Results of this report was discussed with Dr. Paola Joya via the telephone 03/06/2020 at 1010 hours. Dictated by: Dictated on workstation # [id number]
[2020-03-06] MEDS ORDERED: ASPIRIN 81 MG CHEW (CHILDREN'S ASA) PO ONE (10:45)
--- NOTE | 2020-03-06 10:55 | NUR ---
Patient's family (daughter Haily and Gerardo) updated on patient condition and plans for transfer. Family contact numbers: Haily [phone], Gerardo [phone]
--- NOTE | 2020-03-06 11:05 | NUR ---
Report called to VICKEY stroke RN
[2020-03-06 11:37] VITALS: BP 129/94
== END 2020-03-06 11:37 | disposition short-term general hospital (02) ==
LOC: EDUNIT# 08:11 → ER 08:12
DX: I63.50 Cerebral infarction due to unspecified occlusion or stenosis of unspecified cerebral artery (principal); R47.01 Aphasia; F41.9 Anxiety disorder, unspecified; Z82.49 Family history of ischemic heart disease and other diseases of the circulatory system
CPT/HCPCS: 36415; 70450; 70496; 70498; 71045; 80053; 81000; 82962; 84484; 85025; 85379; 85610; 85730; 93005; 93041

== ENCOUNTER → 2020-04-25 | Outpatient (CLI) | payer BC ==
--- NOTE | 2020-04-25 13:28 | Diagnostic Imaging Report ---
PROCEDURE: CT head without contrast. TECHNIQUE: Multiple contiguous axial images were obtained through the brain without the use of intravenous contrast. Auto Exposure Controls were utilized during the CT exam to meet ALARA standards for radiation dose reduction. INDICATION: Vision changes, difficulty concentrating. CTA head of 03/06/2020. FINDINGS: No hyperdense hemorrhage or space-occupying mass. No hydrocephalus or midline shift. Fuller-white matter differentiation is well-preserved. Specifically, there are no features of large territorial infarct. No skull fracture. Paranasal sinuses and mastoid air cells are clear. IMPRESSION: No acute intracranial process by CT. Dictated by: Dictated on workstation # [id number]
== END ==
LOC: RAD FS 13:00
PROVIDERS: ATTEND Nurse Practitioner
DX: H53.8 Other visual disturbances (principal); R41.840 Attention and concentration deficit; Z86.73 Personal history of transient ischemic attack (TIA), and cerebral infarction without residual deficits
CPT/HCPCS: 70450

== ENCOUNTER 2020-05-09 07:57 | Day surgery (SDC) | payer BC ==
[~2020-05-09] VITALS: Ht 162 cm; Wt 64.9 kg
[~2020-05-09 07:57] MED LIST changes: -ASPI-586 PO; -ATOR20TA66 PO; -CATHETER FLUSH 10 ML SYR IV PRN; -REGADENOSON 0.4 MG/5 ML SYR (LEXISCAN) IV ONE
[2020-05-09] MEDS ORDERED: LIDOCAINE 1% INJ 20 ML 20 ML VIAL ONE (10:19)
[2020-05-09] MEDS ORDERED: LIDOCAINE 1% INJ 20 ML 20 ML VIAL INJ ONE ×2 (10:30→11:30)
[2020-05-09 10:38] VITALS: BP 137/72
[2020-05-09] MEDS ORDERED: ASPI-586 PO (10:45)
[2020-05-09] MEDS ORDERED: ATOR20TA66 PO (10:45)
--- NOTE | 2020-05-09 11:03 | Implantation of Loop Monitor ---
Implant of Loop Monitior IMPLANTATION OF LOOP MONITOR REPORT DATE OF PROCEDURE: 05/09/20 PREOP DIAGNOSIS: Cryptogenic stroke POSTOP DIAGNOSIS: Cryptogenic stroke PROCEDURE DETAILS: The patient is a 59 female with history of cryptogenic stroke. Therefore implantable loop recorder was discussed and agreed with the patient. Informed consent was taken. All risks and complications were discussed at length. The patient was draped and prepped in the usual sterile fashion. Local anesthesia was lidocaine, which was given in the substernal area close to the 4th intercostal space. Loop monitor [employer]onic [id number] was implanted according to the protocol. Steri-Strips were placed at the end of the procedure. There were no complications and the patient tolerated the procedure well. The device was interrogated with a voltage of. ANESTHESIA: Local anesthesia with lidocaine. COMPLICATIONS: None CONTRAST/FLUOROSCOPY: None CONCLUSION: Successful implantation of loop recorder with no complication FINAL DIAGNOSIS: Cryptogenic stroke Hypertension Hyperlipidemia CHEMA VELASQUEZ MD May 09, 2020 11:03
--- NOTE | 2020-05-09 14:42 | Cardiology Stress Test Report ---
Stress Test Report Date of Procedure/Referring: Date of Procedure: May 09, 2020 PCP Chema Zavaleta MD Admitting Physician Yahaira Clark MD Indications: Anterior chest pain Baseline Heart Rate: 75 Baseline Blood Pressure: Blood Pressure Systolic: 137 Blood Pressure Diastolic: 72 Baseline EKG: Baseline EKG: normal sinus rhythm Summary After explaining the procedure to the patient, she signed a consent and then brought to the stress nuclear laboratory. Patient received 0.4 mg Lexiscan for stress test, ECG, heart rate and blood pressure were monitored continuously. Resting and stress dose of radio tracer were injected, imaging was acquired and reviewed in short axis, horizontal long axis and vertical long axis views. TID: 1. SSS: 8 SDS: 6 EF: 86 1. Patient tolerated Lexiscan well 2. Baseline sinus rhythm with no changes during test 3. Mild reversible ischemia involving the anterior wall and anterolateral wall with breast attenuation 4. Normal left ventricular size, Accolate ejection fraction 86 percent CHEMA ZAVALETA MD May 09, 2020 14:42
== END 2020-05-09 11:25 | disposition home or self-care (01) ==
LOC: CATH 07:57
PROVIDERS: ATTEND Internal Medicine Cardiovascular Disease
DX: Z86.73 Personal history of transient ischemic attack (TIA), and cerebral infarction without residual deficits (principal); I10 Essential (primary) hypertension; E78.5 Hyperlipidemia, unspecified; R07.89 Other chest pain
CPT/HCPCS: 33285; C1764

== ENCOUNTER → 2020-05-09 | Outpatient (CLI) | payer BC ==
[~2020-05-09] VITALS: Ht 162 cm; Wt 62.0 kg
[~2020-05-09] MED LIST changes: +ASPI-586 PO; +ATOR20TA66 PO; +CATHETER FLUSH 10 ML SYR IV PRN; +REGADENOSON 0.4 MG/5 ML SYR (LEXISCAN) IV ONE
[2020-05-09 09:26] VITALS: BP 128/78
== END ==
LOC: CARD 07:53
PROVIDERS: ATTEND Physician Assistant
DX: R07.89 Other chest pain (principal); I63.9 Cerebral infarction, unspecified; E78.2 Mixed hyperlipidemia; E07.9 Disorder of thyroid, unspecified; Z82.49 Family history of ischemic heart disease and other diseases of the circulatory system
CPT/HCPCS: 78452; 93017; A9502

== ENCOUNTER 2020-05-14 07:50 | Day surgery (SDC) | payer BC ==
[~2020-05-14] VITALS: Ht 162 cm; Wt 63.0 kg
[2020-05-14] VITALS (13 sets, daily range): BP systolic 100–123; BP diastolic 61–82
[~2020-05-14 07:50] MED LIST changes: +ASPI-586 PO; +ATOR20TA66 PO
[2020-05-14] MEDS ORDERED: NS IV 1000 ML 1,000 ML ONE (07:56)
[2020-05-14] MEDS ORDERED: LIDOCAINE 1% INJ 20 ML 20 ML VIAL ONE (07:56)
[2020-05-14] MEDS ORDERED: HEParin (CATH LAB) 2,000 ML IV ONE (07:56)
[2020-05-14] MEDS ORDERED: NS IV 1000 ML 1,000 ML IV SCH ×2 (08:03→10:23)
[2020-05-14 08:32] LABS: HEMOGLOBIN 13.4 G/DL (11.5-16.0); MEAN PLATELET VOLUME 10.5 FL (7.4-10.4); WHITE BLOOD COUNT 4.5 10^3/uL (4.3-11.0)
--- NOTE | 2020-05-14 08:35 | Diagnostic Imaging Report ---
INDICATION: Preop for coronary angiography, coronary artery disease. TECHNIQUE/COMPARISON: A frontal chest was obtained at 8:23 AM and compared to 03/06/2020. FINDINGS: The heart and mediastinal silhouette are normal in appearance. The lungs show no focal infiltrate. There is no pneumothorax or pleural fluid. IMPRESSION: No acute process in the chest. Dictated by: Dictated on workstation # [id number]
[2020-05-14 08:45] LABS: CHLORIDE 108 MMOL/L (98-107); POTASSIUM 3.5 MMOL/L (3.6-5.0); SODIUM 142 MMOL/L (135-145)
[2020-05-14 08:46] LABS: CALCIUM 9.1 MG/DL (8.5-10.1)
[2020-05-14 08:47] LABS: GLUCOSE 103 MG/DL (70-105); TOTAL PROTEIN 6.7 GM/DL (6.4-8.2); TRIGLYCERIDES 63 MG/DL (<150); VLDL CHOLESTEROL 13 MG/DL (5-40)
[2020-05-14 08:49] LABS: BILIRUBIN,TOTAL 0.5 MG/DL (0.1-1.0); CARBON DIOXIDE 23 MMOL/L (21-32); PROTHROMBIN TIME PATIENT 13.9 SEC (12.2-14.7)
[2020-05-14 08:51] LABS: ALKALINE PHOSPHATASE 111 U/L (40-136); CREATININE SERUM 0.78 MG/DL (0.60-1.30); GFR ESTIMATED > 60
[2020-05-14 08:52] LABS: BUN/CREATININE RATIO 13; CHOLESTEROL 106 MG/DL (< 200)
[2020-05-14 08:53] LABS: HDL CHOLESTEROL 39 MG/DL (40-60)
[2020-05-14 08:54] LABS: ALANINE AMINOTRANSFERASE 29 U/L (0-55)
[2020-05-14] MEDS ORDERED: MIDAZOLAM 5 MG/5 ML (VERSED) VIAL ONE (09:40)
[2020-05-14] MEDS ORDERED: fentaNYL INJECTION 100 MCG/2 ML AMP ONE (09:40)
--- NOTE | 2020-05-14 10:23 | Cardiac Procedure Note-CS/ASA ---
Pre-Procedure Note Pre-Op Procedure Note H&P Reviewed The H&P was reviewed, patient examined and no changes noted. Date H&P Reviewed: May 14, 2020 Time H&P Reviewed: 10:22 Conscious Sedation Pre-Proced Time 10:22 ASA Score 3 For ASA 3 and 4: Consider anesthesia and medical clearance. Also, for patients with a history of failed moderate sedation consider anesthesia. Airway Lungs Heart ASA score ASA 1: a normal healthy patient ASA 2: a patient with a mild systemic disease (mid diabetes, controlled hypertension, obesity x ASA 3: a patient with a severe systemic disease that limits activity (angina, COPD, prior Myocardial infarction) ASA 4: a patient with an incapacitating disease that is a constant threat to life (CHF, renal failure) ASA 5: a moribund patient not expected to survive 24 hrs. (ruptured aneurysm) ASA 6: a declared brain- patient whose organs are being harvested. For emergent operations, add the letter E after the classification Mallampati Classification Grade 3 Sedation Plan Analgesia, Amnesia, Plan communicated to team members, Discussed options with patient/fam, Discussed risks with patient/fam The patient is an appropriate candidate to undergo the planned procedure, sedation, and anesthesia. The patient immediately re-assessed prior to indication. CHEMA VELASQUEZ MD May 14, 2020 10:23
[2020-05-14] MEDS ORDERED: PATIENT MAY USE OWN MEDS, ALL PO SCH (10:30)
--- NOTE | 2020-05-14 10:33 | Discharge Inst-Post CATH ---
Discharge Inst-CATH/EP Problems Reviewed?: Yes Post Cardiac Cath/EP D/C Inst Follow Up/Plan Appointment with Dr. VELASQUEZ's office in 2-4 weeks <b>CARDIAC CATH/EP PROCEDURE DISCHARGE INSTRUCTIONS</b> ACTIVITY * Go Home directly and rest. * Limit activity of the leg (or wrist if it was used) for 7 days including aerobics, swimming, jogging, bicycling, etc. * Restrict stair-climbing for 7 days if possible, if not, climb up with your non-cath leg, then bring together on the same step. * Avoid lifting, pushing, pulling or excessive movement of the affected extremity for 7 days. * Customary sexual activity may be resumed after 2 days-use caution not to use a position that strains or causes pain to the affected extremity. * No driving for 24 hours. * NO SMOKING. * Avoid straining for bowel movements for 7 days. * Gentle walking on level ground is allowed. * Returning to work will depend on the type of procedure and the results. Your doctor will discuss this with you. CALL YOUR DOCTOR FOR ANY OF THE FOLLOWING: *If bleeding from the puncture site occurs- Apply gentle pressure to site with clean cloth and call your doctor or EMS. * If a knot or lump forms under the skin, increases in size, or causes pain. * If bruising appears to be worsening or moving further down your leg instead of disappearing. * Temperature above 101 F. CARE OF YOUR GROIN INCISION; * Bruising or purple discoloration of the skin near the puncture site is common. * You may shower only, no bathtub bathing for 5 days. Be careful to avoid slipping as your leg may feel stiff. * If a closure device was used on your femoral artery, please see the attached guide regarding care of the device and your leg. * Leave dressing on FOR 24 hours. CARE OF YOUR WRIST INCISION; * Bruising or purple discoloration of the skin near the puncture site is common. * You may shower. * DO NOT submerge wrist. * Leave dressing on FOR 24 hours. CHEMA VELASQUEZ MD May 14, 2020 10:33 am
--- NOTE | 2020-05-14 10:36 | Cardiac Cath Report ---
Cardiac Cath Report Physician (s)/[employer] (s) Physician CHEMA VELASQUEZ MD Pre-Procedure Diagnosis Pre-Procedure Diagnosis: coronary artery disease Post-Procedure Note Procedure Start Date: May 14, 2020 Name of Procedure: Left heart catheterization Findings/Procedure Note PROCEDURE NOTE: 59-year-old lady with history of hypertension, hyperlipidemia, has been having chest pain, had an abnormal stress test with anterior wall ischemia, scheduled for cardiac catheterization possible PTCA. After explaining the procedure to the patient, all pros and cons were explained, all questions were answered. The patient signed the consent and then she was placed on the cardiac catheterization laboratory. Groin was prepped SL fashion local anesthesia was used. Sheath placed in the left femoral artery. Ashlee right and left catheter were used to access the coronary system. Pigtail was used to access the left ventricular cavity. Left ventriculogram was not done, pressure was measured At the end of the procedure the sheath was removed. Closure device was used FINDINGS: Hemodynamics LV 97/7, end-diastolic pressure of 7 Aorta 97/54 mean of 69 ANATOMY: Left Main is free of obstructive disease Left Anterior Descending is small, tortuous, tapering down into a very small artery, no significant obstructive disease was noted, small vessel disease distally Left Circumflex is small with no obstructive disease Right Coronory Artery is small, dominant artery with no obstructive disease LV Gram was not done, pressure was measured CONCLUSION: 1. Small coronary arteries in general, mild disease at the distal LAD at the apex level, no significant obstructive disease 2. Normal left ventricular end-diastolic pressure DISCUSSION AND RECOMMENDATION: Abnormal stress test is probably due to extracardiac attenuation, no intervention is warranted Anesthesia Type: Conscious Sedation Estimated blood loss (mL): 15 ml Contrast Amount: 35 ml Total Radiation Dose: 102 mGy Post-Procedure Diagnosis Post-operative diagnosis: Chest pain Coronary artery disease Hypertension Hyperlipidemia CHEMA VELASQUEZ MD May 14, 2020 10:36
== END 2020-05-14 14:57 | disposition home or self-care (01) ==
LOC: CATH 07:50
PROVIDERS: ATTEND Internal Medicine Cardiovascular Disease
DX: I25.10 Atherosclerotic heart disease of native coronary artery without angina pectoris (principal); I10 Essential (primary) hypertension; E03.9 Hypothyroidism, unspecified; E78.2 Mixed hyperlipidemia; Z79.02 Long term (current) use of antithrombotics/antiplatelets; Z79.82 Long term (current) use of aspirin; Z79.899 Other long term (current) drug therapy; Z90.710 Acquired absence of both cervix and uterus; Z90.722 Acquired absence of ovaries, bilateral; Z86.73 Personal history of transient ischemic attack (TIA), and cerebral infarction without residual deficits; Z82.3 Family history of stroke; Z83.3 Family history of diabetes mellitus
CPT/HCPCS: 71045; 80053; 80061; 85027; 85610; 85730; 87081; 93458; C1760; C1894; 36415

== ENCOUNTER 2020-05-27 20:36 | Emergency (ER) | payer BC ==
[~2020-05-27] VITALS: Ht 162.5 cm; Wt 63.8 kg
[2020-05-27 20:40] VITALS: BP 135/70
--- NOTE | 2020-05-27 20:53 | ED Upper Extremity ---
General Chief Complaint: Laceration Stated Complaint: RIGHT ARM LACERATION Source: patient, RN/MD Exam Limitations: no limitations History of Present Illness Date Seen by Provider: May 27, 2020 Time Seen by Provider: 20:45 Initial Comments This patient is a 59-year-old female presents to the [facility] complaining of right forearm laceration. Patient states that she was weed eating why her was mowing felt something metal hit her arm concern about be a piece of the metal nuzhat wire in her arm. Unable to palpate any foreign body. We'll get an x-ray to evaluate treat further. Laceration is needed. Patient does need a tetanus shot. Onset: just prior to arrival Pain/Injury Location: right forearm Method of Injury: direct blow Allergies and Home Medications Allergies Coded Allergies: No Known Drug Allergies (Verified , 05/09/20) Home Medications Aspirin 81 Mg Tablet.dr, 81 MG PO DAILY, (Reported) Atorvastatin Calcium 20 Mg Tablet, 20 MG PO DAILY, (Reported) Levothyroxine Sodium 75 Mcg Tablet, 75 MCG PO DAILY, (Reported) Trazodone HCl 50 Mg Tablet, 100 MG PO HS, (Reported) Patient Home Medication List Home Medication List Reviewed: Yes Review of Systems Constitutional: No no symptoms reported, No see HPI, No chills, No diaphoresis, No dizziness, No fever, No malaise, No weakness, No weight gain, No weight loss, No other EENTM: No see HPI, No no symptoms reported, No ear discharge, No hearing loss, No ear pain, No blurred vision, No double vision, No eye pain, No tearing, No vision loss, No dental problems, No hoarseness, No mouth pain, No mouth swelling, No epistaxis, No nose congestion, No nose pain, No throat pain, No throat swelling, No other Respiratory: No no symptoms reported, No see HPI, No cough, No dyspnea on exer tion, No hemoptysis, No orthopnea, No phlegm, No short of breath, No stridor, No wheezing, No other Cardiovascular: No no symptoms reported, No see HPI, No chest pain, No edema, No Hx of Intervention, No palpitations, No syncope, No vascular heart diseas, No other Gastrointestinal: No RUQ, No LUQ, No RLQ, No LLQ, No no symptoms reported, No see HPI, No abdominal pain, No constipation, No diarrhea, No dysphagia, No hematemesis, No heartburn, No jaundice, No loss of appetite, No melena, No nausea, No vomiting, No other Musculoskeletal: No no symptoms reported, No see HPI, No back pain, No gout, No joint pain, No joint swelling, No muscle pain, No muscle stiffness, No muscle cramps, No muscle twitching, No muscle weakness, No neck pain, No other Skin: see HPI (laceration right forearm) Past Lrifjos-Rqgncr-Prmpzm Hx Patient Social History Recent Foreign Travel: No Contact w/Someone Who Travel: No Recent Hopitalizations: Yes ( - STROKE) Immunizations Up To Date Tetanus Booster (TDap): Unknown Seasonal Allergies Seasonal Allergies: Yes Past Medical History Surgeries: Yes (bladder sling, partial thyroidectomy, colonoscopy) Bladder Surgery, Hysterectomy, Thyroidectomy Respiratory: No Cardiac: No Neurological: Yes Stroke 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 Sexually Transmitted Disease: No HIV/AIDS: No Genitourinary: No Gastrointestinal: Yes Chronic Constipation Musculoskeletal: No Endocrine: Yes (PARTIAL THYROIDECTOMY FOR BENIGN DISEASE) Hypothyroidsim HEENT: No Cancer: No Psychosocial: Yes Anxiety Integumentary: No Blood Disorders: No Family Medical History Cardiovascular disease 19 MOTHER G8 BROTHER Completed stroke 19 MOTHER Diabetes mellitus 19 FATHER G8 SISTER Hypertension 19 MOTHER G8 BROTHER Myocardial infarction 19 MOTHER Thyroid disease G8 SISTER Physical Exam Vital Signs Vital Signs - First Documented 05/27/20 20:40 Temp 36.6 Pulse 72 Resp 14 B/P (MAP) 135/70 (91) Pulse Ox 97 O2 Delivery Room Air Capillary Refill : Height, Weight, BMI Height: 5'4.00" Weight: 142lbs. 0.0oz. [id number]; 24.00 BMI Method: General Appearance: WD/WN, no apparent distress Cardiovascular: normal peripheral pulses, regular rate, rhythm, no edema, no gallop, no JVD, no murmur Respiratory: chest non-tender, lungs clear, normal breath sounds, no respiratory distress, no accessory muscle use Gastrointestinal: normal bowel sounds, non tender, soft, no organomegaly, no pulsatile mass, abnormal bowel sounds Elbow/Forearm: pain (patient has a 2 and half centimeter laceration to the ulnar side of the right forearm.) Procedures/Interventions Wound Location: Upper Extremities Wound Length (cm): 3 Wound's Depth, Shape: irregular, sub Q Wound Explored: foreign body removed Irrigated w/ Saline (ccs): 200 Betadine Prep?: Yes Anesthesia: Lidocaine w/ Epi Suture: Ethlion Suture Size: 4-0 F5-2 Number of Sutures: 3 Progress Foreign body easily removed. Laceration sutured with 3 simple interrupted sutures. Minimal blood loss Progress/Results/Core Measures Results/Orders My Orders Orders - VIRAJ YUN MD Forearm 2 View Right (05/27/20 20:49) Dipht,Pertuss(Acell),Tet Adult (Boostrix (05/27/20 21:00) Lidocaine/Epi 2% 1:100,000 (Xylocaine/Ep (05/27/20 21:00) Medications Given in ED Current Medications Medications Dose Ordered Sig/Pro Route Start Time Stop Time Status Last Admin Dose Admin Diphtheria/ Tetanus/Acell Pertussis 0.5 ml ONCE ONCE IM 05/27/20 21:00 05/27/20 21:01 DC 05/27/20 20:57 0.5 ML Lidocaine/ Epinephrine 20 ml ONCE ONCE INJ 05/27/20 21:00 05/27/20 21:01 DC 05/27/20 20:56 20 ML Vital Signs/I&O 05/27/20 20:40 Temp 36.6 Pulse 72 Resp 14 B/P (MAP) 135/70 (91) Pulse Ox 97 O2 Delivery Room Air Progress Progress Note : Time: 21:15 Progress Note Foreign body easily removed and was just under the skin.. To be a bar from Barbed wire. Minimal blood loss. Patient will get a shot of Rocephin 1 g prior to discharge. Patient be given a prescription for Keflex twice daily for 7 days. Keep wound clean and dry and covered used [employer] about appointment as instructed. Sutures to be removed in 10-12 days. Tylenol Motrin as needed for fever pain. Follow-up with PCP or the emergency department for suture removal. Departure Impression Primary Impression: Laceration with foreign body Disposition: HOME, SELF-CARE Condition: Stable Departure-Patient Inst. Decision time for Depature: 21:17 Referrals: SILVINA LIMON MD (PCP/Family) Primary Care Physician Patient Instructions: Laceration Repair With Stitches (DC) Add. Discharge Instructions: Patient be given a prescription for Keflex twice daily for 7 days. Keep wound clean and dry and covered used [employer] about appointment as instructed. Sutures to be removed in 10-12 days. Tylenol Motrin as needed for fever pain. Follow-up with PCP or the emergency department for suture removal. All discharge instructions reviewed with patient and/or family. Voiced understanding. Scripts Cephalexin (Keflex) 500 Mg Capsule 500 MG PO BID for 7 Days, #14 CAP 0 Refills Prov: VIRAJ YUN MD 05/27/20 VIRAJ YUN MD May 27, 2020 20:53
[2020-05-27] MEDS ORDERED: TETANUS,DIPTH,PERTUSS P/F (BOOSTRIX) 0.5 ML VIAL IM ONE (21:00)
[2020-05-27] MEDS ORDERED: LIDOCAINE/EPI 2% 1:100,00 (XYLOCAINE) 20 ML VIAL INJ ONE (21:00)
--- OUTSIDE RECORDS SUMMARY | 2020-05-27 21:05 | XMS REPORT | Clinical Summary ---
Author Author [facility] Organization [facility] Address Unknown Phone Unavailable Care Team Providers Care [place] Repairer Name Role Phone Yahaira Clark MD PCP Source Comments Some departments are not documenting in the electronic medical record. If you d o not see the information that you expected, contact Release of Information in [facility] Information Management department at [phone] for further assistan ce in locating additional records.[facility] Allergies No Known Allergies Medications End Date Status Medication Sig Dispensed Refills Start Date Active acetaminophen (TYLENOL) Take two 100 tablet 3 325 mg tablet tablets by 0 mouth every 4 hours as needed. Active aspirin EC 81 mg tablet Take one 90 tablet 3 tablet by 0 mouth daily. Take with food. Active atorvastatin (LIPITOR) 20 Take one 90 tablet 3 mg tablet tablet by 0 mouth daily. Active levothyroxine (SYNTHROID) Take 100 mcg 0 100 mcg tablet by mouth daily. Active traZODone (DESYREL) 100 Take 100 mg 0 mg tablet by mouth at bedtime as needed for Sleep. Active Problems Problem Noted Date Acute ischemic stroke 03/06/2020 Encounters Care Team Description Date Type Specialty Cindy Poe MD Chronic ischemic left MCA stroke (Primar y Dx) 05/02/2020 Office Visit Neurology 05/02/2020 Travel Yudi Martinez MD 04/09/2020 Hospital Cardiology Encounter 04/09/2020 Win Olivarez, RN Follow-up Phone Call 03/14/2020 Telephone Yudi Martinez MD 03/07/2020 Hospital Radiology Encounter Yudi Martinez MD 03/07/2020 Hospital Radiology Encounter Francisco Portillo Cardiac Device Remote Enrollment (30 day EVMonline enrollment ) 03/07/2020 Documentation Cardiology Nicki Villanueva MD 03/06/2020 Anesthesia Event Nicki Villanueva MD [place], [place], CRNA 03/06/2020 Anesthesia Radiology Event Alisia Denise MD Husmann, Kathrin R, MD Acute ischemic stroke (HCC) 03/06/2020 Hospital - Encounter 03/07/2020 03/06/2020 Hospital Radiology Encounter 03/06/2020 Hospital Radiology Encounter 03/06/2020 Travel from Last 3 Months Family History Medical History Relation Name Comments Coronary Artery Disease Maternal Grandmother Stroke Mother Relation Name Status Comments Father Maternal Grandmother Mother Social History Date Tobacco Use Types Packs/Day Years Used Never Smoker Smokeless Tobacco: Never Used Drinks/Week oz/Week Comments Alcohol Use Yes Alcohol Habits Answer Date Recorded How often do you have a drink containing alcohol? Monthly or less 03/06/2020 How many drinks containing alcohol do you have on No t asked a typical day when you are drinking? How often do you have six or more drinks on one Not asked occasion? Sex Assigned at Date Recorded Not on file Industry Job Start Date Occupation Not on file Not on file Not on file Travel End Travel History Travel Start No recent travel history available. Date Recorded COVID-19 Exposure Response 05/02/2020 2:04 PM CDT In the last month, have you been in contact with No / Unsure someone who was confirmed or suspected to have Coronavirus / COVID-19? Last Filed Vital Signs Reading Time Taken Comments Vital Sign 138/84 05/02/2020 2:28 PM CDT Blood Pressure 80 05/02/2020 2:28 PM CDT Pulse 37.4 C (99.4 F) 05/02/2020 2:28 PM CDT Temperature - - Respiratory Rate 99% 03/07/2020 4:00 PM CDT Oxygen Saturation - - Inhaled Oxygen Concentration 64.4 kg (142 lb) 05/02/2020 2:28 PM CDT Weight 162.6 cm (5' 4") 05/02/2020 2:28 PM CDT Height 24.37 05/02/2020 2:28 PM CDT Body Mass Index Plan of Treatment Health Maintenance Due Date Last Done Comments HIV SCREENING 1973 DTAP/TDAP VACCINES (1 - 1976 Tdap) HEPATITIS C SCREENING 1976 PHYSICAL (COMPREHENSIVE) 1976 EXAM CERVICAL CANCER SCREENING 1979 BREAST CANCER SCREENING 1998 COLORECTAL CANCER 2008 SCREENING SHINGLES RECOMBINANT 2008 VACCINE (1 of 2) INFLUENZA VACCINE 08/09/2020 Implants Device Identifier Shelf Expiration Date Model / Serial / L ot Implanted Type Area Manufactur er [id number] 11/08/2020 [id number] / NA / [id number] Device Closure 70cm 8fr .038in Right: Femoral TERUMO Angio-Seal Vip Bondek-Plus - Sna Artery MEDI JULIANA Implanted: Qty: 1 on 03/06/2020 by Cindy Rollins MD at [facility] Procedures Comments Procedure Name Priority Date/Time Associated Diag nosis EVENT MONITOR Routine 04/09/2020 Acute ischemic stroke 10:26 AM CDT (HCC) US DOPPLER VENOUS STAT 03/07/2020 BILATERAL 2:58 PM CDT ECG 12-LEAD Routine 03/07/2020 12:42 PM CDT 2D + DOPPLER ECHO W/ Routine 03/07/2020 CONTRAST 10:59 AM CDT HC HEMOGLOBIN A1C Add on 03/07/2020 4:08 AM CDT HC CALCIUM IONIZED Routine 03/07/2020 4:08 AM CDT HC PHOSPHOROUS, SERUM Routine 03/07/2020 4:08 AM CDT HC MAGNESIUM Routine 03/07/2020 4:08 AM CDT BASIC METABOLIC PANEL Routine 03/07/2020 4:08 AM CDT HC CBC,AUTOMATED Routine 03/07/2020 4:08 AM CDT HC Routine 03/07/2020 LIPID-5:CHOL/TRG/HDL/LDL+ 4:08 AM CDT VLDL HC CALCIUM IONIZED Routine 03/07/2020 12:11 AM CDT HC MAGNESIUM Routine 03/07/2020 12:11 AM CDT HC BASIC METABOLIC PANEL Routine 03/07/2020 12:11 AM CDT HC PHENCYCLIDINES; QUAL Routine 03/06/2020 8:28 PM CDT HC OPIATES; QUAL Routine 03/06/2020 8:28 PM CDT HC COCAINE; QUAL Routine 03/06/2020 8:28 PM CDT HC CANNABINOIDS; QUAL Routine 03/06/2020 8:28 PM CDT HC BENZODIAZEPINES, QUAL Routine 03/06/2020 8:28 PM CDT HC BARBITURATES Routine 03/06/2020 8:28 PM CDT HC AMPHETAMINES QUAL, Routine 03/06/2020 URINE 8:28 PM CDT MRI HEAD WO CONTRAST Routine 03/06/2020 7:07 PM CDT HC COMPREHENSIVE Routine 03/06/2020 METABOLIC PANEL 5:25 PM CDT HC CALCIUM IONIZED Routine 03/06/2020 5:25 PM CDT HC PHOSPHOROUS, SERUM Routine 03/06/2020 5:25 PM CDT HC MAGNESIUM Routine 03/06/2020 5:25 PM CDT HC CBC,AUTOMATED Routine 03/06/2020 5:25 PM CDT IR ARTERIOGRAM NEURO Routine 03/06/2020 4:[address] BRAIN PERF Routine 03/06/2020 2:[address] HEAD WO CONTRAST Routine 03/06/2020 2:17 PM CDT CTA HEAD EXTERNAL IMAGING Routine 03/06/2020 11:[address] HEAD EXTERNAL IMAGING Routine 03/06/2020 11:54 AM CDT ECG-SCAN 03/06/2020 12:00 AM CDT from Last 3 Months Results * EVENT MONITOR (04/09/2020 10:26 AM CDT) Specimen Narrative Performed At OTHER OUTSIDE LAB An auto trigger leading event recorder is utilized from March 08 through April 06 due to a history of cerebral inf arction There is 3 strips of sinus rhythm on Ap . These are all baseline within 7 minutes. The rhythm is sinus at 78-81bpm. On March 11 there is an auto trigger demon strating 19 beats of atrial tach at 140-160 bpm. Sinus rate at that point is about 90. On April 03 at 1837 there is a strip that shows regular narrow complex tachycardia at about 160 bpm. This lo oks to be sinus tachycardia. It would be helpful to know if the patient was exercising. She is 59 years old so a heart rate of 160 would likely be obtainable with remarkable exertion. This strip is not A. fib or a flutter. Performing Organization Address City/State/Zipcode Ph one Number OTHER OUTSIDE LAB * US DOPPLER VENOUS BILATERAL (03/07/2020 2:58 PM CDT) Specimen Bilateral Impressions Performed At No evidence of femoral/popliteal DVT in the bilateral lower extremities. [facility] By my electronic signature, I attest th at I have personally reviewed the images for this examination and formulated the interpretations and opinions expressed in this report Finalized by Opal Campbell M.D. on 020 3:26 PM. Dictated by Deniz Cruz MD on 03/07/2020 2:58 PM. Narrative Performed At VENOUS DOPPLER ULTRASOUND OF BILATERAL LOWER EXTREMIT IES. [facility] RES[facility] Clinical Indication: 59-year-old female . Stroke, evaluate for DVT. Comparison: No prior studies are availa ble for comparison. Technique: Multiple real-time grayscale sonographic images were obtained throughout the bilateral lower extremit ies with additional color Doppler and duplex acquisitions to examine the deep venous systems. Findings: Right: There are no areas of narrowing or occl usion within the deep veins of the right lower extremity. The common femoral, up per deep femoral, femoral, popliteal, and upper greater saphenous veins are widel y patent and fully compressible. The visualized trifurcation veins are paten t. Color and duplex appearance are normal. Left: There are no areas of narrowing or occl usion within the deep veins of the left lower extremity. The common femoral, up per deep femoral, femoral, popliteal, and upper greater saphenous veins are widel y patent and fully compressible. The visualized trifurcation veins are paten t. Color and duplex appearance are normal. There is no evidence of mass or fluid c ollection within the bilateral lower extremities. Procedure Note Interface, Radiant Results - 03/07/2020 3:29 PM CDT VENOUS DOPPLER ULTRASOUND OF BILATERAL LOWER EXTREMITIES. Clinical Indication: 59-year-old female. Stroke, evaluate for DVT. Comparison: No prior studies are available for comparison. Technique: Multiple real-time grayscale sonographic images were obtained throughout the bilateral lower extremities with additional color Doppler and duplex acquisitions to examine the deep venous systems. Findings: Right: There are no areas of narrowing or occlusion within the deep veins of the right lower extremity. The common femoral, upper deep femoral, femoral, popliteal, and upper greater saphenous veins are widely patent and fully compressible. The visualized trifurcation veins are patent. Color and duplex appearance are normal. Left: There are no areas of narrowing or occlusion within the deep veins of the left lower extremity. The common femoral, upper deep femoral, femoral, popliteal, and upper greater saphenous veins are widely patent and fully compressible. The visualized trifurcation veins are patent. Color and duplex appearance are normal. There is no evidence of mass or fluid collection within the bilateral lower extremities. IMPRESSION No evidence of femoral/popliteal DVT in the bilateral lower extremities. By my electronic signature, I attest that I have personally reviewed the images for this examination and formulated the interpretations and opinions expressed in this report Finalized by Opal Campbell M.D. on 03/07/2020 3:26 PM. Dictated by Deniz Cruz MD on 03/07/2020 2:58 PM. Performing Organization Address City/State/Zipcode Ph one Number [facility] RES[facility] * 2D + DOPPLER ECHO (03/07/2020 10:59 AM CDT) IVS 0.91 0.6 - 0.9 cm OTHER OUTSIDE LAB LVIDD 4.04 3.8 - 5.2 cm OTHER OUTSIDE LAB LVIDS 2.42 2.2 - 3.5 cm OTHER OUTSIDE LAB PW 0.92 0.6 - 0.9 cm OTHER OUTSIDE LAB Left Ventricle 78.40 46 - 106 mL OTHER OUTSIDE Diastolic LAB Volume Left Ventricle 44.29 29 - 61 mL OTHER OUTSIDE Diastolic LAB Volume Index Left Ventricle 31.30 14 - 42 mL OTHER OUTSIDE Systolic Volume LAB Left Ventricle 17.68 8 - 24 mL OTHER OUTSIDE Systolic Volume LAB Index TDI lateral e' 0.15 m/s OTHER OUTSIDE LAB Right 2.19 1.9 - 3.5 cm OTHER OUTSIDE Ventricular Mid LAB Diameter LA size 3.11 2.7 - 3.8 cm OTHER OUTSIDE LAB LA volume 24.40 22 - 52 mL OTHER OUTSIDE LAB Right Atrial 7.70 <18 cm2 OTHER OUTSIDE Area LAB Right Atrial 3.55 2.2 - 2.8 cm OTHER OUTSIDE Major Dimension LAB AV peak 1.39 m/s OTHER OUTSIDE velocity LAB MV Peak A Eddy 0.70 m/s OTHER OUTSIDE LAB MV Peak E Eddy 0.66 m/s OTHER OUTSIDE PW LAB Right 2.48 2.5 - 4.1 cm OTHER OUTSIDE Ventricular LAB Basal Diameter Right Heart 0.12 m/s OTHER OUTSIDE Systolic TDI S' LAB Right Heart 1.67 >1.7 cm OTHER OUTSIDE Systolic Mmode LAB TAPSE Sinus 3.04 2.4 - 3.6 cm OTHER OUTSIDE LAB Ascending aorta 2.76 cm OTHER OUTSIDE LAB BSA 1.77 m2 OTHER OUTSIDE LAB CV ECHO PV [place] OTHER OUTSIDE ENDOSCOPY REGISTERED NURSE LAB FS 40.10 28 - 44 % OTHER OUTSIDE LAB EF 68.17 % OTHER OUTSIDE LAB LV mass 114.02 67 - 162 g OTHER OUTSIDE LAB RWT 0.46 <=0.42 OTHER OUTSIDE LAB E/A ratio 0.94 OTHER OUTSIDE LAB TV rest 25 mmHg OTHER OUTSIDE pulmonary LAB artery pressure Lateral E/E' 4.40 OTHER OUTSIDE ratio LAB Left Atrium 13.79 16 - 34 OTHER OUTSIDE Index LAB Cardiology Siemens [id number] OTHER OUTSIDE Ultrasound LAB Machine Left Ventricle 64.42 43 - 95 g/m2 OTHER OUTSIDE Mass Index LAB TDI Medial e' 0.080 m/s OTHER OUTSIDE LAB Medial E/E' 8.25 OTHER OUTSIDE ratio LAB ECHO EF 60 % OTHER OUTSIDE LAB Specimen Narrative Performed At OTHER OUTSIDE LAB 1. Normal left ventricular cavity size with concentric remodeling 2. Grade 1 diastolic dysfunction 3. There is a patent foramen ovale with right to left shunting as evidenced by agitated saline bubble susie dy 4. No significant valvular Doppler abno rmalities seen 5. No pericardial fusion 6. Estimated peak systolic PA pressure 25 mmHg No prior studies for comparison Performing [facility] one Number OTHER OUTSIDE LAB * CBC (03/07/2020 4:08 AM CDT) Only the most recent of 2 results within the time period is included. White Blood 6.2 4.5 - 11.0 K/UL [facility] Cells RBC 4.03 4.0 - 5.0 M/UL [facility] Hemoglobin 12.9 12.0 - 15.0 GM/DL [facility] Hematocrit 38.0 36 - 45 % [facility] MCV 94.3 80 - 100 FL [facility] MCH 32.0 26 - 34 PG [facility] MCHC 33.9 32.0 - 36.0 G/DL [facility] RDW 12.9 11 - 15 % [facility] Platelet Count 159 150 - 400 K/UL MAIN LAB MPV 8.7 7 - 11 FL [facility] Specimen Blood Performing Organization [facility] one Number [facility] [address] [id number] * PHOSPHORUS (03/07/2020 4:08 AM CDT) Only the most recent of 2 results within the time period is included. Phosphorus 2.5 2.0 - 4.5 MG/DL [facility] Specimen Blood Performing Organization [facility] one Number MAIN LAB [address] [place] [address] * MAGNESIUM (03/07/2020 4:08 AM CDT) Only the most recent of 3 results within the time period is included. Magnesium 2.3 1.6 - 2.6 mg/dL [facility] Specimen Blood Performing Organization [facility] one Number MAIN LAB [address] [place] [address] * HEMOGLOBIN A1C (03/07/2020 4:08 AM CDT) Hemoglobin A1C 5.2 4.0 - 6.0 % [facility] Comment: The ADA recommends that most patients with type 1 and type 2 diabetes maintain an A1c level <7%. Specimen Performing Organization Address [facility] Ph one Number [facility] [address] [place] [address] * IONIZED CALCIUM (03/07/2020 4:08 AM CDT) Only the most recent of 3 results within the time period is included. Ionized Calcium 1.12 1.0 - 1.3 MMOL/L [facility] Specimen Blood Performing Organization Address [facility] Ph one Number [facility] [address] [place] [address] * LIPID PROFILE (03/07/2020 4:08 AM CDT) Cholesterol 173 <200 MG/DL [facility] Triglycerides 74 <150 MG/DL [facility] HDL 57 >40 MG/DL [facility] LDL 105 (H) <100 mg/dL [facility] VLDL 15 MG/DL [facility] Non HDL 116 MG/DL [facility] Cholesterol Comment: Calculated non-HDL Cholesterol (non-HDL-C) indirectly measures LDL-C, Lp(a), IDL-C, and VLDL-C. It is a surrogate marker for Apoprotein B. Goal should be less than 130 mg/dL. Specimen Blood Performing Organization Address [facility] one Number [facility] [address] [place] [address] * BASIC METABOLIC PANEL (03/07/2020 4:08 AM CDT) Sodium 138 137 - 147 MMOL/L [facility] Potassium 4.4 3.5 - 5.1 MMOL/L [facility] Chloride 109 98 - 110 MMOL/L [facility] CO2 22 21 - 30 MMOL/L [facility] Anion Gap 7 3 - 12 [facility] Glucose 95 70 - 100 MG/DL [facility] Blood Urea 10 7 - 25 MG/DL [facility] Nitrogen Creatinine 0.63 0.4 - 1.00 MG/DL [facility] Calcium 8.1 (L) 8.5 - 10.6 MG/DL [facility] eGFR Non >60 >60 mL/min [facility] Comment: Citizen [place] The eGFR is not validated f or use in drug dosing adjustments. Continue to use estimated creatinine clearance per dosing reference text. Please contact the Clinical Pharmacist for questions. eGFR >60 >60 mL/min [facility] Citizen [place] Comment: The eGFR is not validated for use in drug dosing adjustments. Continue to use estimated creatinine clearance per dosing reference text. Please contact the Clinical Pharmacist for questions. Specimen Blood Performing Organization [facility] one Number [facility]3] LAB [address] [place] [address] * POTASSIUM (03/07/2020 12:11 AM CDT) Potassium 4.8 3.5 - 5.1 MMOL/L [facility]3] LAB Specimen Blood Performing Organization [facility] one Number [facility]3] LAB [address] [place] [address] * PHENCYCLIDINES-URINE RANDOM (03/06/2020 8:28 PM CDT) Phencyclidine NEG NEG-NEG [facility] (PCP) Comment: RESULTS WERE OBTAINED BY IMMUNOASSAY AND ARE PRESUMPTIVE ONLY. POSITIVE INDICATES THE PRESENCE OF SUBSTANCE WITH CHARACTERISTICS SIMILAR TO DRUG-DRUG CLASS OR METABOLITE IN CONC. EQUAL TO OR EXCEEDING VALUES LISTED. PHENCYCLIDINE (PCP) 25 NG/ML Specimen Urine - Urine Performing [facility] one Number [facility]3] LAB [address] [place] [address] * OPIATES-URINE RANDOM (03/06/2020 8:28 PM CDT) Opiates-Urine NEG NEG-NEG [facility] Comment: RESULTS WERE OBTAINED BY IMMUNOASSAY AND ARE PRESUMPTIVE ONLY. POSITIVE INDICATES THE PRESENCE OF SUBSTANCE WITH CHARACTERISTICS SIMILAR TO DRUG-DRUG CLASS OR METABOLITE IN CONC. EQUAL TO OR EXCEEDING VALUES LISTED. OPIATES 2000 NG/ML Specimen Urine - Urine Performing Organization [facility] one Number [facility]3] LAB [address] [place] [address] * COCAINE-URINE RANDOM (03/06/2020 8:28 PM CDT) Cocaine-Urine NEG NEG-NEG [facility]3] LAB Comment: RESULTS WERE OBTAINED BY IMMUNOASSAY AND ARE PRESUMPTIVE ONLY. POSITIVE INDICATES THE PRESENCE OF SUBSTANCE WITH CHARACTERISTICS SIMILAR TO DRUG-DRUG CLASS OR METABOLITE IN CONC. EQUAL TO OR EXCEEDING VALUES LISTED. COCAINE 300 NG/ML Specimen Urine - Urine Performing [facility] one Number [facility]3] LAB [address] [place] [address] * CANNABINOIDS-URINE RANDOM (03/06/2020 8:28 PM CDT) THC NEG NEG-NEG MAIN LAB Comment: RESULTS WERE OBTAINED BY IMMUNOASSAY AND ARE PRESUMPTIVE ONLY. POSITIVE INDICATES THE PRESENCE OF SUBSTANCE WITH CHARACTERISTICS SIMILAR TO DRUG-DRUG CLASS OR METABOLITE IN CONC. EQUAL TO OR EXCEEDING VALUES LISTED. CANNABINOIDS 50 NG/ML Specimen Urine - Urine Performing Organization [facility] one Number MAIN LAB [address] [place] [address] * BENZODIAZEPINES-URINE RANDOM (03/06/2020 8:28 PM CDT) Benzodiazepines POS (A) NEG-NEG MAIN LAB Comment: RESULTS WERE OBTAINED BY IMMUNOASSAY AND ARE PRESUMPTIVE ONLY. POSITIVE INDICATES THE PRESENCE OF SUBSTANCE WITH CHARACTERISTICS SIMILAR TO DRUG-DRUG CLASS OR METABOLITE IN CONC. EQUAL TO OR EXCEEDING VALUES LISTED. BENZODIAZEPINES 200 NG/ML Specimen Urine - Urine Performing Organization [facility] one Number MAIN LAB [address] [place] [address] * BARBITURATES-URINE RANDOM (03/06/2020 8:28 PM CDT) Barbiturates,Ur NEG NEG-NEG MAIN LAB ine Comment: RESULTS WERE OBTAINED BY IMMUNOASSAY AND ARE PRESUMPTIVE ONLY. POSITIVE INDICATES THE PRESENCE OF SUBSTANCE WITH CHARACTERISTICS SIMILAR TO DRUG-DRUG CLASS OR METABOLITE IN CONC. EQUAL TO OR EXCEEDING VALUES LISTED. BARBITURATES 200 NG/ML Specimen Urine - Urine Performing Organization [facility] one Number MAIN LAB [address] [place] [address] * AMPHETAMINES-URINE RANDOM (03/06/2020 8:28 PM CDT) Amphetamines NEG NEG-NEG MAIN LAB Comment: RESULTS WERE OBTAINED BY IMMUNOASSAY AND ARE PRESUMPTIVE ONLY. POSITIVE INDICATES THE PRESENCE OF SUBSTANCE WITH CHARACTERISTICS SIMILAR TO DRUG-DRUG CLASS OR METABOLITE IN CONC. EQUAL TO OR EXCEEDING VALUES LISTED. AMPHETAMINES 1000 NG/ML Specimen Urine - Urine Performing Organization [facility] Ph one Number MAIN LAB [address] [place] [address] * MRI HEAD WO CONTRAST (03/06/2020 7:07 PM CDT) Specimen Impressions Performed At 1. Small acute or early subacute posterior left ins ular infarct (similar to [facility] RESULTS prior CT). 2. No evidence of hemorrhagic convers ion or additional infarct. 3. Several punctate FLAIR hyperintens e supratentorial white matter foci, likely due to minor chronic small vesse l ischemic changes and/or migraine headaches. By my electronic signature, I attest th at I have personally reviewed the images for this examination and formulated the interpretations and opinions expressed in this report Finalized by Elkin Elizabeth M.D. on 2019 7:46 AM. Dictated by Jr Cooper M.D. on 03/07/2020 7:13 AM. Narrative Performed At EXAM: MRI BRAIN [facility] RESULTS HISTORY: 59-year-old female, Stroke within 24 ho urs. TECHNIQUE: Multiplanar and multisequenc e MR imaging of the head was performed. COMPARISON: CT head and CT brain perfus ion March 06, 2020 FINDINGS: Elkin Elizabeth M.D. has personally review ed these images and formulated the interpretations and opinions expressed in this report. Small acute or early subacute infarct i nvolving the posterior left insula, similar to prior CT (when allowing for differences in technique). No evidence of hemorrhagic conversion. No additional a reas of infarct are identified. The ventricles and subarachnoid spaces are normal in size and configuration. There are a few additional scattered yi pratentorial white matter punctate FLAIR hyperintensities, bifrontal predominant distribution. There is no midline shift or mass effect. The vascular flow-voids are unremarkable. Procedure Note Interface, Radiant Results - 03/07/2020 7:49 AM CDT EXAM: MRI BRAIN HISTORY: 59-year-old female, Stroke within 24 mercedes rs. TECHNIQUE: Multiplanar and multisequence MR imaging of the head was performed. COMPARISON: CT head and CT brain perfusion March 06, 2020 FINDINGS: Elkin Elizabeth M.D. has personally reviewed these images and formulated the interpretations and opinions expressed in this report. Small acute or early subacute infarct involving the posterior left insula, similar to prior CT (when allowing for differences in technique). No evidence of hemorrhagic conversion. No additional areas of infarct are identified. The ventricles and subarachnoid spaces are normal in size and configuration. There are a few additional scattered supratentorial white matter punctate FLAIR hyperintensities, bifrontal predominant distribution. There is no midline shift or mass effect. The vascular flow-voids are unremarkable. IMPRESSION 1. Small acute or early subacute lambskin trimmer ior left insular infarct (similar to prior CT). 2. No evidence of hemorrhagic conversio n or additional infarct. 3. Several punctate FLAIR hyperintense supratentorial white matter foci, likely due to minor chronic small vessel ischemic changes and/or migraine headaches. By my electronic signature, I attest that I have personally reviewed the images for this examination and formulated the interpretations and opinions expressed in this report Finalized by Elkin Elizabeth M.D. on 03/07/2020 7:46 AM. Dictated by Jr Cooper M.D. on 03/07/2020 7:13 AM. Performing Organization Address [facility] one Number [facility] RESULTS * COMPREHENSIVE METABOLIC PANEL (03/06/2020 5:25 PM CDT) Sodium 138 137 - 147 MMOL/L [facility] Potassium 3.9 3.5 - 5.1 MMOL/L [facility] Chloride 108 98 - 110 MMOL/L [facility] Glucose 106 (H) 70 - 100 MG/DL [facility] Blood Urea 12 7 - 25 MG/DL [facility] Nitrogen Creatinine 0.57 0.4 - 1.00 MG/DL [facility] Calcium 7.6 (L) 8.5 - 10.6 MG/DL [facility] Total Protein 6.0 6.0 - 8.0 G/DL [facility] Total Bilirubin 0.4 0.3 - 1.2 MG/DL [facility] Albumin 3.4 (L) 3.5 - 5.0 G/DL [facility] Alk Phosphatase 72 25 - 110 U/L [facility] AST (SGOT) 14 7 - 40 U/L [facility] CO2 21 21 - 30 MMOL/L [facility] ALT (SGPT) 8 7 - 56 U/L [facility] Anion Gap 9 3 - 12 [facility] eGFR Non >60 >60 mL/min [facility] Comment: Citizen [place] The eGFR is not validated f or use in drug dosing adjustments. Continue to use estimated creatinine clearance per dosing reference text. Please contact the Clinical Pharmacist for questions. eGFR >60 >60 mL/min [facility] Citizen [place] Comment: The eGFR is not validated for use in drug dosing adjustments. Continue to use estimated creatinine clearance per dosing reference text. Please contact the Clinical Pharmacist for questions. Specimen Blood Performing Organization Address City/State/Zipcode Ph one Number [facility] [address] [place] [address] * IR ARTERIOGRAM NEURO (03/06/2020 4:10 PM CDT) Specimen Impressions Performed At 1. 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 Upon completi on of the procedure her speech was already improving. 2. Status post intra-arterial infusio n of 12 mg of tPA, as described above, with complete recanalization. Groin Access: 14:49 mTICI 3: 15:55 3. 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 I performed this procedure without the involvement of a resident or fellow. Finalized by CINDY POE M.D. on 03/07/2020 12:21 PM. Dictated by CINDY POE M.D. on 03/07/2020 10:04 AM. Narrative Performed At Acute Endovascular Stroke Treatment [facility] Indication - Acute Ischemic Stroke Procedures Performed 1) Intra-arterial infusion of tPA into the middle cerebral artery. 2) Selective left internal carotid ester ry cerebral angiograms x 7. 3) Superselective left middle cerebral artery angiograms x 11. 4) Right common femoral artery angiogra m. Referring Physician - Alisia Denise MD Neurointerventionalist: Cindy palmer MD Contrast - 150 cc [id number] Total mGy - 1988 Anesthesia: Monitored anesthesia care Consent - The procedure and its risks , benefits, and alternative treatments were explained to the patient and her d aughter and they understood them and a verbal consent was obtained from the da ughter over the phone with a witnessed signature. Clinical History: Mrs. Hansen is a 59 -year-old female who had acute onset of aphasia. CT angiography demonstrated an M2 artery occlusion and CT perfusion demonstrated a mismatch. She is here fo r emergent stroke therapy. Description of Procedure The patient was brought to the angio yi ite and placed in supine position on the angio table. Monitored anesthesia car e was commenced. The right groin was prepped in a standard sterile fashion. A micropuncture needle kit was used to access the right common femoral artery at 14:49. Following this, an 5F 25 cm sheath was placed in the right common f emoral artery, establishing arterial access. LICA Technique Under fluoroscopic and roadmap guidance a 5 Hungarian 125 cm Vert catheter over a 180 cm 0.035 [place] wire over the aortic arch and into the left internal carotid artery. Images were obtained in bipla ne projections of the left anterior intracranial circulation. LICA Interpretation The angiogram demonstrated abrupt occlu tj of an M3 inferior division middle cerebral artery branch. Pre-intervention modified TICI score wa s 0. Under fluoroscopic and roadmap guidance the sheath and catheter were changed for an 8 Hungarian 25 cm sheath and a 6 Hungarian 90 cm Neuron Max catheter which was advanced into the distal left common ca rotid artery. Under fluoroscopic and roadmap guidance a Penumbra Jet [address] was advanced over a Penumbra 3 Max aspiration catheter over a Transcend 0. 014 microwire into the distal left internal carotid artery. Due to the sti ffness of the aspiration catheter it was switched out for a Velocity microcathet er was which was advanced over the microwire into the left M1 artery. Over several minutes 6 mg of diluted tP A were slowly infused into the left M1 artery. A follow-up angiogram demonstra phyllis no recanalization of the occluded artery. Multiple superselective middle cerebral artery angiograms were performed to obtain the best working projection to c atheterize the occluded branch. Under fluoroscopic and roadmap guidance the m icrocatheter was advanced over the microwire into the occluded M3 artery. Over several minutes 6 mg of diluted tPA were slowly infused into the left M3 ar sammi branch. A follow-up left internal carotid arter y angiogram demonstrated recanalization of the occluded artery. The final modified TICI score is 3. After reviewing the final images, a [facility] common femoral artery angiogram was performed. The angiogram demonstrated the access site well above the bifurcation with no branching vessels a rising from the site; therefore, hemostasis was achieved using an 8 Fren ch Angio-Seal closure device followed by manual pressure for 5 minutes. The patient was transported to the [facility] in a stable hemodynamic condition. Complications - none immediate Procedure Note Interface, Radiant Results - 03/07/2020 12:25 PM CDT Acute Endovascular Stroke Treatment Indication - Acute Ischemic Stroke Procedures Performed 1) Intra-arterial infusion of tPA into t he middle cerebral artery. 2) Selective left internal carotid arter y cerebral angiograms x 7. 3) Superselective left middle cerebral a rtery angiograms x 11. 4) Right common femoral artery angiogram . Referring Physician - Alisia Denise MD Neurointerventionalist: Cindy Poe MD Contrast - 150 cc [id number] Total mGy - 1988 Anesthesia: Monitored anesthesia care Consent - The procedure and its risks, benefits, and alternative treatments were explained to the patient and her daughter and they understood them and a verbal consent was obtained from the daughter over the phone with a witnessed signature. Clinical History: Mrs. Hansen is a 59-year-old female who had acute onset of aphasia. CT angiography demonstrated an M2 artery occlusion and CT perfusion demonstrated a mismatch. She is here for emergent stroke therapy. Description of Procedure The patient was brought to the angio suite and placed in supine position on the angio table. Monitored anesthesia care was commenced. The right groin was prepped in a standard sterile fashion. A micropuncture needle kit was used to access the right common femoral artery at 14:49. Following this, an 5F 25 cm sheath was placed in the right common femoral artery, establishing arterial access. LICA Technique Under fluoroscopic and roadmap guidance a 5 Hungarian 125 cm Vert catheter over a 180 cm 0.035 [place] wire over the aortic arch and into the left internal carotid artery. Images were obtained in biplane projections of the left anterior intracranial circulation. LICA Interpretation The angiogram demonstrated abrupt occlusion of an M3 inferior division middle cerebral artery branch. Pre-intervention modified TICI score was 0. Under fluoroscopic and roadmap guidance the sheath and catheter were changed for an 8 Hungarian 25 cm sheath and a 6 Hungarian 90 cm Neuron Max catheter which was advanced into the distal left common carotid artery. Under fluoroscopic and roadmap guidance a Penumbra Jet 7 catheter was advanced over a Penumbra 3 Max aspiration catheter over a Transcend 0.014 microwire into the distal left internal carotid artery. Due to the stiffness of the aspiration catheter it was switched out for a Velocity microcatheter was which was advanced over the microwire into the left M1 artery. Over several minutes 6 mg of diluted tPA were slowly infused into the left M1 artery. A follow-up angiogram demonstrated no recanalization of the occluded artery. Multiple superselective middle cerebral artery angiograms were performed to obtain the best working projection to catheterize the occluded branch. Under fluoroscopic and roadmap guidance the microcatheter was advanced over the microwire into the occluded M3 artery. Over several minutes 6 mg of diluted tPA were slowly infused into the left M3 artery branch. A follow-up left internal carotid artery angiogram demonstrated recanalization of the occluded artery. The final modified TICI score is 3. After reviewing the final images, a right common femoral artery angiogram was performed. The angiogram demonstrated the access site well above the bifurcation with no branching vessels arising from the site; therefore, hemostasis was achieved using an 8 Hungarian Angio-Seal closure device followed by manual pressure for 5 minutes. The patient was transported to the NSICU in a stable hemodynamic condition. Complications - none immediate IMPRESSION 1. Acute left M3 inferior division bran ch occlusion with a pre-intervention modified TICI score of 3. Upon completion of the procedure her speech was already improving. 2. Status post intra-arterial infusion of 12 mg of tPA, as described above, with complete recanalization. Groin Access: 14:49 mTICI 3: 15:55 3. 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 I performed this procedure without the involvement of a resident or fellow. Finalized by CINDY POE M.D. on 03/07/2020 12:21 PM. Dictated by CINDY POE M.D. on 03/07/2020 10:04 AM. Performing Organization Address City/State/Zipcode Ph one Number [facility] * CT BRAIN PERF (03/06/2020 2:18 PM CDT) Specimen Impressions Performed At CT head: [facility] 1. Stable small recent posterior left insular infarct without hemorrhagic conversion or mass effect. 2. No obvious new infarct is identifi ed. CT perfusion: 1. Moderate sized mismatch perfusion defect involving the posterior left MCA territory. 2. No matched perfusion defect to cor respond with the posterior left insular infarct, likely due to reperfusion. Findings were discussed via telephone Char Diamond with Dr. Rowland of the neurology stroke service at 2:35 PM on 03/06/2020. By my electronic signature, I attest th at I have personally reviewed the images for this examination and formulated the interpretations and opinions expressed in this report Finalized by Elkin Elizabeth M.D. on 2019 2:53 PM. Dictated by Cindy Diamond M.D. on 03/06/2020 2:24 PM. Narrative Performed At EXAM: CT HEAD AND BRAIN PERFUSION [facility] HISTORY: Stroke within 24 hours. TECHNIQUE: Multiple contiguous axial im ages were obtained of the brain without the administration of Omnipaque 350 I V contrast. Perfusion imaging was obtained following the administration o f IV contrast with CBV, MTT, TTD, and CBF mapping. COMPARISON: CTA head and neck March 06, 2020. FINDINGS: CT head: There is a persistent small recent infa rct involving the posterior left insula (similar to CTA head from earlier the day). The driscoll-white matter interfaces are otherwise maintained. Th e ventricles and subarachnoid spaces are normal in size and configuration. There is no midline shift or mass effect. There is no evidence of acute intracran ial hemorrhage. The basal cisterns are patent. The calvarium is intact. The vi sualized paranasal sinuses and mastoid air cells are clear. CT perfusion: There is a moderate-sized mismatch perf usion defect involving the posterior left MCA territory. No matched perfusion def ect corresponding with known recent posterior left insular infarct, likely due to reperfusion. Procedure Note Interface, Radiant Results - 03/06/2020 2:56 PM CDT EXAM: CT HEAD AND BRAIN PERFUSION HISTORY: Stroke within 24 hours. TECHNIQUE: Multiple contiguous axial images were obtained of the brain without the administration of Omnipaque 350 IV contrast. Perfusion imaging was obtained following the administration of IV contrast with CBV, MTT, TTD, and CBF mapping. COMPARISON: CTA head and neck March 06, 2020. FINDINGS: CT head: There is a persistent small recent infarct involving the posterior left insula (similar to CTA head from earlier the same day). The driscoll-white matter interfaces are otherwise maintained. The ventricles and subarachnoid spaces are normal in size and configuration. There is no midline shift or mass effect. There is no evidence of acute intracranial hemorrhage. The basal cisterns are patent. The calvarium is intact. The visualized paranasal sinuses and mastoid air cells are clear. CT perfusion: There is a moderate-sized mismatch perfusion defect involving the posterior left MCA territory. No matched perfusion defect corresponding with known recent posterior left insular infarct, likely due to reperfusion. IMPRESSION CT head: 1. Stable small recent posterior left i nsular infarct without hemorrhagic conversion or mass effect. 2. No obvious new infarct is identified . CT perfusion: 1. Moderate sized mismatch perfusion de fect involving the posterior left MCA territory. 2. No matched perfusion defect to corre spond with the posterior left insular infarct, likely due to reperfusion. Findings were discussed via telephone by Cindy Diamond with Dr. Rowland of the neurology stroke service at 2:35 PM on 03/06/2020. By my electronic signature, I attest that I have personally reviewed the images for this examination and formulated the interpretations and opinions expressed in this report Finalized by Elkin Elizabeth M.D. on 03/06/2020 2:53 PM. Dictated by Cindy Diamond M.D. on 03/06/2020 2:24 PM. Performing Organization Address City/State/Zipcode Ph one Number [facility] * CT HEAD WO CONTRAST (03/06/2020 2:17 PM CDT) Specimen Impressions Performed At CT head: [facility] 1. Stable small recent posterior left insular infarct without hemorrhagic conversion or mass effect. 2. No obvious new infarct is identifi ed. CT perfusion: 1. Moderate sized mismatch perfusion defect involving the posterior left MCA territory. 2. No matched perfusion defect to cor respond with the posterior left insular infarct, likely due to reperfusion. Findings were discussed via telephone b alta Diamond with Dr. Rowland of the neurology stroke service at 2:35 PM on 03/06/2020. By my electronic signature, I attest th at I have personally reviewed the images for this examination and formulated the interpretations and opinions expressed in this report Finalized by Elkin Elizabeth M.D. on 2019 2:53 PM. Dictated by Cindy Diamond M.D. on 03/06/2020 2:24 PM. Narrative Performed At EXAM: CT HEAD AND BRAIN PERFUSION [facility] HISTORY: Stroke within 24 hours. TECHNIQUE: Multiple contiguous axial im ages were obtained of the brain without the administration of Omnipaque 350 I V contrast. Perfusion imaging was obtained following the administration o f IV contrast with CBV, MTT, TTD, and CBF mapping. COMPARISON: CTA head and neck March 06, 2020. FINDINGS: CT head: There is a persistent small recent infa rct involving the posterior left insula (similar to CTA head from earlier the day). The driscoll-white matter interfaces are otherwise maintained. Th e ventricles and subarachnoid spaces are normal in size and configuration. There is no midline shift or mass effect. There is no evidence of acute intracran ial hemorrhage. The basal cisterns are patent. The calvarium is intact. The vi sualized paranasal sinuses and mastoid air cells are clear. CT perfusion: There is a moderate-sized mismatch perf usion defect involving the posterior left MCA territory. No matched perfusion def ect corresponding with known recent posterior left insular infarct, likely due to reperfusion. Procedure Note Interface, Radiant Results - 03/06/2020 2:56 PM CDT EXAM: CT HEAD AND BRAIN PERFUSION HISTORY: Stroke within 24 hours. TECHNIQUE: Multiple contiguous axial images were obtained of the brain without the administration of Omnipaque 350 IV contrast. Perfusion imaging was obtained following the administration of IV contrast with CBV, MTT, TTD, and CBF mapping. COMPARISON: CTA head and neck March 06, 2020. FINDINGS: CT head: There is a persistent small recent infarct involving the posterior left insula (similar to CTA head from earlier the same day). The driscoll-white matter interfaces are otherwise maintained. The ventricles and subarachnoid spaces are normal in size and configuration. There is no midline shift or mass effect. There is no evidence of acute intracranial hemorrhage. The basal cisterns are patent. The calvarium is intact. The visualized paranasal sinuses and mastoid air cells are clear. CT perfusion: There is a moderate-sized mismatch perfusion defect involving the posterior left MCA territory. No matched perfusion defect corresponding with known recent posterior left insular infarct, likely due to reperfusion. IMPRESSION CT head: 1. Stable small recent posterior left i nsular infarct without hemorrhagic conversion or mass effect. 2. No obvious new infarct is identified . CT perfusion: 1. Moderate sized mismatch perfusion de fect involving the posterior left MCA territory. 2. No matched perfusion defect to corre spond with the posterior left insular infarct, likely due to reperfusion. Findings were discussed via telephone by Cindy Diamond with Dr. Rowland of the neurology stroke service at 2:35 PM on 03/06/2020. By my electronic signature, I attest that I have personally reviewed the images for this examination and formulated the interpretations and opinions expressed in this report Finalized by Elkin Elizabeth M.D. on 03/06/2020 2:53 PM. Dictated by Cindy Diamond M.D. on 03/06/2020 2:24 PM. Performing Organization Address City/State/Zipcode Ph one Number [facility] * CTA HEAD EXTERNAL IMAGING (03/06/2020 11:55 AM CDT) Specimen Narrative Performed At This order has been auto finalized and does not contain a result. * CT HEAD EXTERNAL IMAGING (03/06/2020 11:54 AM CDT) Specimen Narrative Performed At This order has been auto finalized and does not contain a result. * ECG-SCAN (03/06/2020 12:00 AM CDT) Narrative Performed At This result has an attachment that is n ot available. Ordered by an unspecified provider. 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 03/07/2020 6:33 AM Full Code 03/06/2020 11:07 AM Provider has discussed Code Status No, more discussi on w/Patient or Family? needed
--- OUTSIDE RECORDS SUMMARY | 2020-05-27 21:05 | XMS REPORT | Encounter Summary ---
Author Author [facility] Organization [facility] Address Unknown Phone Unavailable Care Team Providers Care Electron Tube Assembler Name Role Phone Yahaira Clark MD PCP Encounter Details Care Team Description Date Type Department 05/02/2020 Travel Social History Date Tobacco Use Types Packs/Day [...] or suspected to have Coronavirus / COVID-19? documented as of this encounter Functional Status Date of Assessment Functional Status Response 03/06/2020 Does the patient have a hearing impairment: No documented as of this encounter Plan of Treatment Not on filedocumented as of this encounter Visit Diagnoses Not on filedocumented in this encounter
--- OUTSIDE RECORDS SUMMARY | 2020-05-27 21:05 | XMS REPORT | Encounter Summary ---
Author Author [facility] Organization [facility] Address Unknown Phone Unavailable Care Team Providers Care Audit Control Clerk Name Role Phone Yahaira Clark MD PCP Reason for Visit * Reason Comments New Patient MCA Stroke Encounter Details Care Team Description Date Type Department Michael Harvey MD [address] [place] [address] Chronic ischemic left MCA stroke (Primar y Dx) 05/02/[address] [facility] [address] [place] [address] Social History Date Tobacco Use Types Packs/Day [...] / COVID-19? documented as of this encounter Last Filed Vital Signs Reading Time Taken Comments Vital Sign 138/84 05/02/2020 2:28 PM CDT Blood Pressure 80 05/02/2020 2:28 PM CDT Pulse 37.4 C (99.4 F) 05/02/2020 2:28 PM CDT Temperature - - Respiratory Rate - - Oxygen Saturation - - Inhaled Oxygen Concentration 64.4 kg (142 lb) 05/02/2020 2:28 PM CDT Weight 162.6 cm (5' 4") 05/02/2020 2:28 PM CDT Height 24.37 05/02/2020 2:28 PM CDT Body Mass Index documented in this encounter Functional Status Date of Assessment Functional Status Response 03/06/2020 Does the patient have a hearing impairment: No documented as of this encounter Patient Instructions * Patient Instructions* Michael Harvey MD - 05/02/2020 2:40 PM CDT 1) I will speak with Dr. Zavaleta recommending the LINQ monitor and to get a stress test. 2) Continue aspirin. 3) The speech issues at the end of the day are expected but should improve with time. 4) Return to clinic in 9 months. 5) Please call Sandra Mars, my nurse, with any questions at [phone]. Please call Blessing May, my patient scheduler, with any scheduling questions at . documented in this encounter Progress Notes * Michael Harvey MD - 05/02/2020 2:40 PM CDT Date of Service: 05/02/2020 Subjective: Domitila Hansen is a 59 y.o. female who presents to clinic with her (and nicole gomez on the phone) as a f/u for left M3 stroke s/p EVT. History of Present Illness Two weeks ago could not sleep. Went downstairs, everything was hazy and could n ot navigate. After 10 minutes was fine. Last week Thursday had an ocular MARCH x 45 minutes. The next day had another severe MARCH. If he has a very busy day at work, at night has difficulty speaking. At work, not at full pace. FH: Younger brother a. Fib; mother with triple CABG Review of Systems Constitutional: Positive for diaphoresis. Eyes: Positive for visual disturbance. Respiratory: Positive for chest tightness. Cardiovascular: Positive for chest pain. Endocrine: Positive for polyuria. Musculoskeletal: Positive for joint swelling. Neurological: Positive for speech difficulty, light-headedness and headaches. Psychiatric/Behavioral: Positive for confusion, decreased concentration and slee p disturbance. All other systems reviewed and are negative. Objective: acetaminophen (TYLENOL) 325 mg tablet Take two tablets by mouth every 4 hour s as needed. aspirin EC 81 mg tablet Take one tablet by mouth daily. Take with food. atorvastatin (LIPITOR) 20 mg tablet Take one tablet by mouth daily. levothyroxine (SYNTHROID) 100 mcg tablet Take 100 mcg by mouth daily. traZODone (DESYREL) 100 mg tablet Take 100 mg by mouth at bedtime as needed for Sleep. Vitals: 05/02/20 1428 BP: 138/84 BP Source: Arm, Left Upper Patient Position: Sitting Pulse: 80 Temp: 37.4 C (99.4 F) Weight: 64.4 kg (142 lb) Height: 162.6 cm (64") PainSc: Two Body mass index is 24.37 kg/m. Physical Exam Neuro: MS: A & O X 3, Speech: fluent, CN: 2-12 intact, Motor: BAUER, Gait: normal NEUROIMAGING CEREBRAL ANGIOGRAM WITH IA TPA (03-06-20) IMPRESSION 1. Acute left M3 inferior division branch occlusion with a pre-intervention modified TICI score of 3. Upon completion of the procedure her speech was already improving. 2. Status post intra-arterial infusion of 12 mg of tPA, as described above, with complete recanalization. Groin Access: 14:49 mTICI 3: 15:55 3. 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 Assessment and Plan: 1) Chronic Left MCA (M3) Stroke - s/p IA tPA with recanalization of artery and r eturn to baseline. She does have beclouding of stroke sx at the end of a long d ay at work which I explained can happen after a stroke and should improve with t mary. Her 30 day Holter monitor showed 2 episodes of heart rate up to 160. Give n this and no significant vascular risk factors, I would like her to have the LI NQ monitor implanted for further evaluation of her cardiac rhythm. I spoke to h er internet network specialist in [place], [place], Dr. Meghann Thacker, and he will get this schedu led. Continue asa for now. -Risk factor modification per PCP -Goal systolic BP <130 -Goal LDL <100 -Goal A1C <7 2) Angina - she has baseline chest pain which worsens with exertion. I spoke to Dr. Thacker about a stress test, especially given her strong family hx of heart disease, and he will order a stress test. RTC in Total time 30 minutes. Estimated counseling time 20 minutes. Counseled Mrs. Perla gomes regarding chronic left MCA stroke. documented in this encounter Plan of Treatment Not on filedocumented as of this encounter Visit Diagnoses Diagnosis Chronic ischemic left MCA stroke Transient ischemic attack (TIA), and ce rebral infarction without residual deficits documented in this encounter
--- OUTSIDE RECORDS SUMMARY | 2020-05-27 21:06 | XMS REPORT | Encounter Summary ---
Author Author [facility] Organization [facility] Address Unknown Phone Unavailable Care Team Providers Care Research Development Director Name Role Phone Divina Kovacs MD PCP Encounter Details Care Team Description Date Type Department Yudi Martinez MD [address] [place], [place] [id number] 04/09/2020 [facility] [address] [facility] [place] [address] Social History Date Tobacco Use Types Packs/Day [...] history available. Date Recorded COVID-19 Exposure Response 04/09/2020 10:25 AM CDT In the last month, have you been in contact with [facility] to assess someone who was confirmed or suspected to have Coronavirus / COVID-19? documented as of this encounter Functional Status Date of Assessment Functional Status Response 03/06/2020 Does the patient have a hearing impairment: No documented as of this encounter Medications at Time of Discharge Start Date End Date Medication Sig Dispensed Refills 03/07/2020 acetaminophen (TYLENOL) Take two 100 tablet 3 325 mg tablet tablets by mouth every 4 hours as needed. 03/07/2020 aspirin EC 81 mg tablet Take one 90 tablet 3 tablet by mouth daily. Take with food. 03/08/2020 atorvastatin (LIPITOR) 20 Take one 90 tablet 3 mg tablet tablet by mouth daily. levothyroxine (SYNTHROID) Take 100 mcg 0 100 mcg tablet by mouth daily. traZODone (DESYREL) 100 Take 100 mg 0 mg tablet by mouth at bedtime as needed for Sleep. documented as of this encounter Plan of Treatment Not on filedocumented as of this encounter Procedures Comments Procedure Name Priority Date/Time Associated Diag nosis EVENT MONITOR Routine 04/09/2020 Acute ischemic stroke 10:26 AM CDT (HCC) documented in this encounter Results * EVENT MONITOR (04/09/2020 10:26 AM CDT) Specimen Narrative Performed At OTHER OUTSIDE LAB An auto trigger leading event recorder is utilized from March 08 through April 06 due to a history of cerebral inf arction There is 3 strips of sinus rhythm on . These are all baseline within 7 [...] City/State/Zipcode Ph one Number OTHER OUTSIDE LAB documented in this encounter Visit Diagnoses Diagnosis Acute ischemic stroke (HCC) Unspecified cerebral artery occlusion w ith cerebral infarction documented in this encounter
--- OUTSIDE RECORDS SUMMARY | 2020-05-27 21:06 | XMS REPORT | Encounter Summary ---
Author Author [facility] Organization [facility] Address Unknown Phone Unavailable Care Team Providers Care Chemical Engineering Professor Name Role Phone Divina Kovacs MD PCP Reason for Visit * Reason Comments Follow-up Phone Call Encounter Details Care Team Description Date Type Department Win Arriola RN Follow-up Phone Call 03/14/[address] [address] Social History Date Tobacco Use Types Packs/Day [...] history available. Date Recorded COVID-19 Exposure Response 03/06/2020 10:42 AM CDT In the last month, have you been in contact with No / Unsure someone who was confirmed or suspected to have Coronavirus / COVID-19? documented as of this encounter Functional Status Date of Assessment Functional Status Response 03/06/2020 Does the patient have a hearing impairment: No documented as of this encounter Miscellaneous Notes * Telephone Encounter - Win Arriola RN - 03/16/2020 4:42 PM CDT 7 Day Post-Stroke Discharge Follow-up Phone Call ? Information Source: Patient ? New Symptoms Since Discharge: No o Returned to Hospital since Discharge: No ? Current Estimate mRS: mRS scale: 1 - No significant disability despite sympto ms; able to carry out all usual duties and activities o Walking? Unassisted o Driving? Yes o Ms. Hansen states that her symptoms are minimal and that she can do everything that she was able to do prior to her stroke. She has found that she gets much more tired at the end of her work days and that she feels like she sometimes slu rs her words when she is tired. Additionally, she mentioned that she sometimes feels like her hands do not "keep up with her typing" quite like they did before . ? Experiencing Depression? No ? Experiencing Fatigue? Yes: Ms. Hansen says that she is much more tired by the end of her work days than prior to her stroke and that she notices her symptoms become worse when she is tired. ? Stroke Risk Factors Reviewed: yes ? Elevated BP? No Checking BP at Home? No, but after speaking with me about the importance of monitoring her BP at home, she states that she plans to purch ase an automatic BP cuff. ? Elevated Cholesterol? Yes Taking a Statin? Yes ? Smoking History? Never ? Diabetes? Yes ? Atrial Fibrillation? Suspected o Event Monitor? Yes o A Fib being treated? ? Medication Adherence? taking as prescribed o Barriers to Medication Adherence: None ? Follow-Up Appointments? o Neurology? No, but she plans to address this during her cardiology appointmen t on Thursday in order to get a recommendation for a neurologist who is local to [facility]. o PCP? No, she is in the process of finding a new PCP but plans to do this soon . o Other? Yes, cardiology follow-up scheduled in [place] on 03/19/20. ? Stroke Education Provided: Yes - Verbal Counseling Verbalized Understanding documented in this encounter Plan of Treatment Not on filedocumented as of this encounter Visit Diagnoses Not on filedocumented in this encounter
--- OUTSIDE RECORDS SUMMARY | 2020-05-27 21:06 | XMS REPORT | Encounter Summary ---
Author Author [facility] Organization [facility] Address Unknown Phone Unavailable Care Team Providers Care Pan Pusher Name Role Phone Divina Kovacs MD PCP Reason for Visit * Auth/Cert Referred By Contact Referred To Contact Status Reason Specialty Diagnoses / Procedures Diagnoses Ischemic stroke (HCC) CVA Encounter Details Care Team Description Date Type Department Nicki Villanueva MD [address] [address] [phone] Esperanza Guerrero CRNA [address] [address] 03/06/2020 Anesthesia [facility] [address] [address] Anesthesia Record Responsible Anesthesiologist Anesthesia Start Time Anesthesi a Stop Time Procedure Name Nicki Villanueva MD 03/06/20 1442 03/06/20 1612 IR ARTERIOGRAM NEURO Date Time Event Comment 1429 143 AN Equip Check 1442 In Room 1442 Anes Start 1445 An Start Data 1445 Start Supplemental O2 1446 Anesthesia Ready 1448 Proc Start 1459 Quick Note NIBP cuff and SaO2 probe on same side 1604 an stop data 1611 Handoff to RN I completed my SBAR handoff to the receiving nurse. 1612 An Stop Meds Name Total midazolam (VERSED) 1 mg/mL injection 2 mg fentaNYL PF (SUBLIMAZE) injection 50 mcg phenylephrine (DAVIAN-SYNEPHRINE) 0.1 mg/mL 50 mcg injection (SYRINGE) ondansetron (ZOFRAN) injection 4 mg acetaminophen (OFIRMEV) 1,000 mg 1,000 mg injection electrolyte-A (PLASMA-LYTE A PH 7.4) 0 mL infusion * Name O2 N2O Inspired * No blood administrations on file. Removal Type Details Placement Puncture 03/06/20; 1559; Right; Femoral 0 1559 by Ramesh Gross RN (Sheath) 03/07/20 1635 by Micaela Toney RN Peripheral 03/06/20; (unknown OSH); PreHospital 03/06/20 0000 by Kristieon, ALLY Outside Facility; L; Antecubital; 20 G; [place] 03/07/20; 1635 03/06/20 1557 by Malik Gross RN Arterial 03/06/20; 1449; Femoral, Right; 8 FR; 03/06/20 1449 by Wiliam Gross Other (Comment) (intra procedure temp [place] sheath placement); Correct Patient, Correct Procedure, Correct Patient Position, Correct Equipment / Implants Available, Marking Waived, Not Side Specific; 03/06/20; 1557 documented in this encounter Social History Date Tobacco Use Types Packs/Day [...] / COVID-19? documented as of this encounter OR Notes * Anesthesia Postprocedure Evaluation - Nicki Villanueva MD - 03/06/2020 4:12 PM CDT Post-Anesthesia Evaluation Name: Domitila Hansen : 1960 Age: 59 y.o. Sex : female Procedure Date: 03/06/2020 * No procedures listed * Stroke intervention for deteriorating neuro exam with expressive aphasia Surgeon: * No surgeons listed * Wes Post-Anesthesia Vitals No vitals data found for the desired time range.BP 127/73 (BP Source: Arm, Rig ht Upper) | Pulse 72 | Temp 36.5 C (97.7 F) | SpO2 99% Post Anesthesia Evaluation Note Evaluation location: ICU Patient participation: recovered; patient participated in evaluation (aphasia im proved) Level of consciousness: alert Pain score: 3 Pain management: adequate Hydration: normovolemia Temperature: 36.0C - 38.4C Airway patency: adequate Perioperative Events Post-op nausea and vomiting: no PONV Postoperative Status Cardiovascular status: hemodynamically stable Respiratory status: spontaneous ventilation (RA) ICU Information Blood Products Given-no NSICU information no ICP monitor used no anticonvulsants were given Staff involved in transport include: ANIMAL CARE ASSISTANT, OR nurse and anesthesiologist Anesthesiologist separate elevator and at bedside to examine patient as well. M ild aphasia still present but improved from before intervention. . Post-Anesthesia Evaluation and ICU Transfer Note Attestation: I evaluated the pa tient and the indicated post-anesthesia care is discharge and transfer to the U physician-lead team. Perioperative Events * Anesthesia Preprocedure Evaluation - Esperanza Guerrero CRNA - 03/06/2020 2:53 PM CDT Anesthesia Pre-Procedure Evaluation Name: Domitila Hansen : 1960 Age: 59 y.o. Sex : female Procedure Info: Procedure Information Anesthesia Start Date/Time: 03/06/20 1442 Scheduled providers: Hattie Benedict RN; Sea Pagan RT(Jordy)(JOYCE),LRT; Juancarlos Sánchez MD Procedure: IR ARTERIOGRAM NEURO Location: [facility] Radiology Physical Assessment Vital Signs (last filed in past 24 hours): Patient History Allergies not on file Current Medications Not on File Review of Systems/Medical History Patient summary reviewed Nursing notes reviewed Pertinent labs reviewed PONV Screening: Female gender and Non-smoker History of anesthetic complications: 2 previous anesthesias (thyroidectomy and h ysterectomy) without difficulty. Airway - negative Pulmonary - negative Cardiovascular Exercise tolerance: >4 METS Beta Nory therapy: No GI/Hepatic/Renal - negative Neuro/Psych CVA (wake up stroke today from [facility]; agrees to proceed ), residual symptoms Musculoskeletal - negative Endocrine/Other - negative Constitution - negative Physical Exam Airway Findings Mallampati: I TM distance: <3 FB Neck ROM: full Mouth opening: good Comments: small opening Dental Findings: Negative Cardiovascular Findings: Rhythm: regular Rate: normal Pulmonary Findings: Negative Abdominal Findings: Negative Neurological Findings: Altered mental status Comments: aphasia Diagnostic Tests Hematology: No results found for: HGB, HCT, PLTCT, WBC, NEUT, ANC, LYMPH, ALC, A BSLYMPHCT, GUERITA, AMC, EOSA, ABC, BASOPHILS, MCV, MCH, MCHC, MPV, RDW General Chemistry: No results found for: NA, K, CL, CO2, GAP, BUN, CR, GLU, CA, KETONES, ALBUMIN, LACTIC, OBSCA, MG, TOTBILI, TOTBILCB, PO4 Coagulation: No results found for: PT, PTT, INR Anesthesia Plan ASA score: 4 emergent Plan: MAC Induction method: intravenous NPO status: acceptable Informed Consent Anesthetic plan and risks discussed with patient. Plan discussed with: anesthesiologist and ANIMAL CARE ASSISTANT. Plan discussed with: anesthesiologist and ANIMAL CARE ASSISTANT. Anesthesia Pre-Procedure Evaluation Name: Domitila Hansen : 1960 Age: 59 y.o. Sex : female Procedure Info: Procedure Information Anesthesia Start Date/Time: 03/06/20 1442 Scheduled providers: Hattie Benedict RN; Sea Pagan RT(Jordy)(JOYCE),LRT; Juancarlos Sánchez MD Procedure: IR ARTERIOGRAM NEURO Location: [facility] Radiology Physical Assessment Vital Signs (last filed in past 24 hours): 140/70 80 12 af 100 Patient History Allergies not on file Current Medications Not on File Review of Systems/Medical History PONV Screening: Female gender and Non-smoker PHYSICAL EXAM Diagnostic Tests Hematology: No results found for: HGB, HCT, PLTCT, WBC, NEUT, ANC, LYMPH, ALC, A BSLYMPHCT, GUERITA, AMC, EOSA, ABC, BASOPHILS, MCV, MCH, MCHC, MPV, RDW General Chemistry: No results found for: NA, K, CL, CO2, GAP, BUN, CR, GLU, CA, KETONES, ALBUMIN, LACTIC, OBSCA, MG, TOTBILI, TOTBILCB, PO4 Coagulation: No results found for: PT, PTT, INR Anesthesia Plan ASA score: 4 emergent Plan: MAC Induction method: intravenous NPO status: acceptable Informed Consent Anesthetic plan and risks discussed with patient. Use of blood products discussed with patient Blood Consent: consented Plan discussed with: anesthesiologist and ANIMAL CARE ASSISTANT. documented in this encounter Plan of Treatment Not on filedocumented as of this encounter Visit Diagnoses Not on filedocumented in this encounter Administered Medications Action Date Dose Rate Site Medication Order MAR Action 03/06/2020 3:58 PM CDT 1,000 mg acetaminophen (OFIRMEV) injection Given Administer over 15 Minutes, INTRA-PROCEDURE MED, Starting Thu03/06/20 at 1558, Until Thu03/06/20 at 1616, Anesthesia Intra-op 03/06/2020 2:47 PM CDT electrolyte-A (PLASMA-LYTE A PH 7.4) Given - New injection Bag INTRA-PROCEDURE MED(CONT), Starting Thu03/06/20 at 1447, Until Thu03/06/20 at 1616, Anesthesia Intra-op 03/06/2020 3:46 PM CDT 25 mcg fentaNYL citrate PF (SUBLIMAZE) Given injection INTRA-PROCEDURE MED, Starting Thu03/06/20 at 1513, Until Thu03/06/20 at 1616, Anesthesia Intra-op 25 mcg Given 03/06/2020 3:13 PM CDT 03/06/2020 2:51 PM CDT 1 mg midazolam (VERSED) injection Given Intravenous, INTRA-PROCEDURE MED, Starting Thu03/06/20 at 1447, Until Thu03/06/20 at 1616, Anesthesia Intra-op 1 mg Given 03/06/2020 2:47 PM CDT 03/06/2020 3:12 PM CDT 4 mg ondansetron (ZOFRAN) injection Given INTRA-PROCEDURE MED, Starting Thu03/06/20 at 1512, Until Thu03/06/20 at 1616, Anesthesia Intra-op 03/06/2020 3:02 PM CDT 50 mcg phenylephrine in NS injection syringe Given INTRA-PROCEDURE MED, Starting Thu03/06/20 at 1502, Until Thu03/06/20 at 1616, Anesthesia Intra-op documented in this encounter"
--- OUTSIDE RECORDS SUMMARY | 2020-05-27 21:06 | XMS REPORT | Encounter Summary ---
Author Author [facility] Organization [facility] Address Unknown Phone Unavailable Care Team Providers Care Ferryboat Operator Name Role Phone Divina Kovacs MD PCP Reason for Visit * Reason Comments Cardiac Device Remote 30 day EVMonline enrollment Enrollment Encounter Details Care Team Description Date Type Department Francisco Portillo Cardiac Device Remote Enrollment (30 day EVMonline enrollment ) 03/07/2020 Documentation [facility] [address] [place] [address] Social History Date Tobacco Use Types Packs/Day [...] impairment: No documented as of this encounter Progress Notes * Francisco Portillo - 03/07/2020 2:44 PM CDT Company:[employer] ( [employer]) Type: Looping Duration: 30 DAYS Ordering Provider:Michelle Obrien: Stroke Online Enrollment Completed: Yes Asked for over night shipping documented in this encounter Plan of Treatment Not on filedocumented as of this encounter Visit Diagnoses Not on filedocumented in this encounter
--- OUTSIDE RECORDS SUMMARY | 2020-05-27 21:06 | XMS REPORT | Encounter Summary ---
Author Author [facility] Organization [facility] Address Unknown Phone Unavailable Care Team Providers Care Gas Engine Operator Name Role Phone Divina Kovacs MD PCP Encounter Details Care Team Description Date Type Department 03/06/2020 Travel Social History Date Tobacco Use Types [...] / COVID-19? documented as of this encounter Plan of Treatment Not on filedocumented as of this encounter Visit Diagnoses Not on filedocumented in this encounter
--- OUTSIDE RECORDS SUMMARY | 2020-05-27 21:06 | XMS REPORT | Encounter Summary ---
Author Author [facility] Organization [facility] Address Unknown Phone Unavailable Care Team Providers Care Pe Teacher Name Role Phone Divina Kovacs MD PCP Encounter Details Care Team Description Date Type Department Yudi Martinez MD [address] [place], [place] [id number] 03/07/2020 [facility] [address] [facility] [address] [place] [address] Social History Date Tobacco Use Types Packs/Day [...] as of this encounter Plan of Treatment Date/Time Name Type Priority Associated Diag noses 03/07/2020 1:32 PM CDT POC ANES US LOWER Imaging Routine EXTREMITY VENOUS (DVT) RIGHT documented as of this encounter Visit Diagnoses Not on filedocumented in this encounter
--- OUTSIDE RECORDS SUMMARY | 2020-05-27 21:06 | XMS REPORT | Encounter Summary ---
Author Author [facility] Organization [facility] Address Unknown Phone Unavailable Care Team Providers Care District Superintendent Name Role Phone Divina Kovacs MD PCP Encounter Details Care Team Description Date Type Department 03/06/2020 [facility] [address] [address] Social History Date Tobacco Use Types Packs/Day [...] / COVID-19? documented as of this encounter Medications at [...] mouth at bedtime as needed for Sleep. 03/07/2020 estradioL (ESTRACE) 1 mg Take 2 mg by 0 tablet mouth daily. documented as of this encounter Plan of Treatment Not on filedocumented as of this encounter Procedures Comments Procedure Name Priority Date/Time Associated Diag nosis CT HEAD EXTERNAL IMAGING Routine 03/06/2020 11:54 AM CDT documented in this encounter Results * CT HEAD EXTERNAL IMAGING (03/06/2020 11:54 AM CDT) Specimen Narrative Performed At This order has been auto finalized and does not contain a result. documented in this encounter Visit Diagnoses Not on filedocumented in this encounter
--- OUTSIDE RECORDS SUMMARY | 2020-05-27 21:06 | XMS REPORT | Clinical Summary ---
Author Author [facility] Organization [facility] Address Unknown Phone Unavailable Care Team Providers Care Lumber Sales Supervisor Name Role Phone Divina Kovacs PCP Allergies [...] Vaccine# (1 of 2) 2008 Influenza Vaccine (#1) 2020 Pneumococcal Vaccine: Aged Out No longer eligib le based on patient's age to Pediatrics (0 to 5 Years) complete this topic and At-Risk Patients (6 to 64 Years) Results Not on filefrom Last 3 Months Insurance Type Payer Benefit Subscriber ID Effective Phone Address Plan / Dates Group [facility] xxxxxxxxxxxx [id number] PREFERRED [facility] [phone] (Home) [place], [place] [address] Domitila Hansen Personal/F Self [phone] ([address]) [place], [place] [address] Min Hansendra Personal/F Self [phone] ([address]) [place], [place] [address] Advance Directives For more information, please contact: [phone] Patient Can Filling Room Sweeper Explanation Type Date Recorded Advance Directives and Living Will Power of Mining Support Worker
--- OUTSIDE RECORDS SUMMARY | 2020-05-27 21:06 | XMS REPORT | Encounter Summary ---
Author Author [facility] Organization [facility] Address Unknown Phone Unavailable Care Team Providers Care Time Study Engineer Name Role Phone Divina Kovacs MD PCP Reason for Referral * Consult, Test & Treat (Routine) Referred By Contact Referred To Contact Status Reason Specialty Diagnoses / Procedures Yudi Martinez MD [address] [place] [address] New Request Procedures REQUEST FOR CARDIOLOGY APPOINTMENT Reason for Visit * Auth/Cert Referred By Contact Referred To Contact Status Reason Specialty Diagnoses / Procedures Diagnoses Ischemic stroke (HCC) CVA Encounter Details Care Team Description Date Type Department Kirsten Cox MD [address], [place] [id number] Yudi Martinez MD [address] [place] [address] [phone] Acute ischemic stroke (HCC) 03/06/2020 [facility] 03/07/2020 [address] [place] [address] Social History Date Tobacco Use Types Packs/Day [...] Signs Reading Time Taken Comments Vital Sign 139/81 03/07/2020 4:00 PM CDT Blood Pressure 72 03/07/2020 4:00 PM CDT Pulse 36.8 C (98.2 F) 03/07/2020 12:00 PM CDT Temperature - - Respiratory Rate 99% 03/07/2020 4:00 PM CDT Oxygen Saturation - - Inhaled Oxygen Concentration 68.9 kg (151 lb 14.4 oz) 03/07/2020 9:00 AM CDT Weight 163 cm (5' 4.17") 03/07/2020 9:00 AM CDT Height 25.93 03/07/2020 9:00 AM CDT Body Mass Index documented in this encounter Functional Status Date of Assessment Functional Status Response 03/06/2020 Does the patient have a hearing impairment: No documented as of this encounter Discharge Summaries * Anyi Jimenez MD - 03/07/2020 4:41 PM CDT Physician Discharge Summary Name: Domitila Hansen Date Of : 1960 Age: 59 years Admit date: 03/06/2020 Discharge date: 03/07/2020 Attending Physician: Yudi Martinez MD Service: Neurology [facility] Physician Summary completed by: Anyi Jimenez MD Reason for hospitalization: acute ischemic stroke Significant PMH: Medical History: Diagnosis Date Hypothyroidism Allergies: Patient has no known allergies. Admission Physical Exam notable for: Physical Exam: Blood pressure 105/58, pulse 74, temperature 36.5 C (97.7 F), SpO2 99 %. Andre coma score: E: 4 - Opens eyes on own M: 6 - Follows simple motor commands V: 5 - Alert and oriented Neuro: Mental Status: awake, alert, conversant, oriented x4 Speech: naming, repetition intact. Some mild deficit in articulatio n. Cranial Nerves: Cranial nerves 2-12 INTACT by inspection. - Pupil exam: Size: 4mm bl React ivity: brisk - EOM: intact Motor: No pronator drift RUE: Strength: 5/5; follows commands RLE: Strength: 5/5; follows commands. Assessed foot, unable to assess rest of leg due to patient needing to keep it straight and flat post-IR. LUE: Strength: 5/5; follows commands LLE: Strength: 5/5; follows commands Sensory: normal Lungs: clear to auscultation bilaterally Heart: regular rate and rhythm, S1, S2 normal, no murmur, click, rub or gallop Abdomen: soft, non-tender. Bowel sounds normal. No masses, no organomegaly Extremities: extremities normal, atraumatic, no cyanosis or edema Skin: Skin color, texture, turgor normal. No rashes or lesions Admission Lab/Radiology studies notable for: CT head: 1. Stable small recent posterior left insular infarct without hemorrhagic conversion or mass effect. 2. No obvious new infarct is identified. CT perfusion: 1. Moderate sized mismatch perfusion defect involving the posterior left MCA territory. 2. No matched perfusion defect to correspond with the posterior left insular infarct, likely due to reperfusion. Brief Hospital Course: The patient was admitted and the following issues were a ddressed during this hospitalization: (with pertinent details). Patient was adm itted from OSH ED on 03/06 due to dysarthria and expressive aphasia, resolved but symptoms returned and CT concern for left M2 occlusion, NIH 3, went to IR for IA tPA in L M3 inferior division branch occlusion, recanalization of clot TICI 3. Admitted to Neuro ICU post-IR, symptoms of dysarthria and aphasia largely resol boom, and stroke work-up completed. Patient not hypertensive, non-smoker, minimal alcohol use, no diabetes as confirmed by A1c 5.2. LDL 105, atorvastatin 20mg da mikie started. ASA 81 mg daily started. Recommended patient stop taking oral estro gen, concern for hypercoagulability. Echo with PFO and Grade 1 diastolic dysfunc tion. Discussed results with chest painting leader that read the echocardiogram, and foll ow-up with cardiology outpatient in 2-4 weeks arranged for further work-up of PF O and possible RICHELLE to determine need for closure. Discharged with holter monitor arrangements to confirm that there is no abnormal heart rhythm, regular rhythm on telemetry while admitted. Follow-up with neurology stroke arranged. No issues with physical and occupational therapy, deemed safe to return home. Patient felt to be back to baseline. Discharged in stable condition with instructions shyam blanco holter monitor, follow-up with cardiology and neurology stroke, medications to start taking ASA 81 and atorvastatin, discontinue use of estrogen. Stroke ed ucation provided. Condition at Discharge: Stable Discharge Diagnoses: Hospital Problems Active Problems * (Principal) Acute ischemic stroke (HCC) Surgical Procedures: IR for IA tPA Significant Diagnostic Studies and Procedures: noted in brief hospital course Consults: Neurology stroke Patient Disposition: Home Patient instructions/medications: Regular Diet You have no dietary restriction. Please continue with a healthy balanced diet. Report These Signs and Symptoms Please contact your doctor if you have any of the following symptoms: temperatu re higher than 100.4 degrees F, uncontrolled pain, persistent nausea and/or vomi ting, difficulty breathing, chest pain, severe abdominal pain, headache, unable to urinate, unable to have bowel movement or drainage with a foul odor. Questions About Your Stay For questions or concerns regarding your hospital stay, call [phone]. Discharging attending physician: YUDI MARTINEZ [[id number]] Activity as Tolerated It is important to keep increasing your activity level after you leave the hosp ital. Moving around can help prevent blood clots, lung infection (pneumonia) an d other problems. Gradually increasing the number of times you are up moving ar ound will help you return to your normal activity level more quickly. Continue to increase the number of times you are up to the chair and walking daily to ret urn to your normal activity level. Begin to work toward your normal activity lev el at discharge Stroke Information F.A.S.T. is an easy way to remember the sudden signs of a stroke. F - face drooping A - arm weakness S - speech difficulty T - TIME TO CALL 911 If the person shows any of theses signs, even if the signs go away, call 9-1-1 I MMEDIATELY. Check the time so you will know when the first sign started. Traits and lifestyle habits that increase your risk for stroke include prior str rancho/TIA, high cholesterol and use of oral estrogen. Echocardiogram with patent f oramen ovale. Continue your medications as ordered after discharge. These medications will hel p reduce your risk of another stroke. Your most recent cholesterol levels, if taken during your stay, will display bel ow. LDL is called "bad" cholesterol because it can stick to your artery kumar an d block blood flow. Your LDL should be below 100. HDL is called the "good" tiffanie sterol. Your HDL should be greater than 40. Your lab results on 03/07/2020: HDL 57 MG/DL (Ref range: >40 MG/DL); LDL 105 mg/dL* (Ref range: <100 mg/dL). It is important that you follow-up with your primary care physician 4 to 6 weeks after discharge. Be sure to keep all follow-up appointments. Please bring your discharge instructions with you to your follow-up appointments. Should you have any questions once you have returned home, please feel free to c ontact the [employer] at [phone]. Your last blood pressure was BP: 109/64, Your target blood pressure is systolic <160. If you have diabetes, even if treated, you are at an increased risk of stroke. Many people with diabetes also have high blood pressure, high cholesterol or are overweight. This increases your risk even more. Smoking doubles your risk of stroke. Quitting can greatly reduce your risk. Fo r more information on smoking cessation call or visit www.smokefr ee.gov. NEUROLOGY RETURN APPOINTMENT Needs follow-up appointment in neurology stroke clinic with Dr. Cox in 4-6 w eeks please. [facility] Provider KIRSTEN COX [[id number]] DISCHARGE PATIENT CONTINGENT Discharge contingent reason Diagnostic Test Specify diagnostic tests Lower extremity doppler result Specify awaiting result or completion of test Awaiting result Discharging attending physician: YUDI MARTINEZ [[id number]] EVENT MONITOR Standing Status: Future Standing Exp. Date: 03/07/21 Scheduling Priority: First Available (7-10 days) REQUEST FOR CARDIOLOGY APPOINTMENT Standing Status: Future Standing Exp. Date: 03/07/25 Cardiology appointment for likely scheduling of RICHELLE for evaluation of PFO, note d on TTE after ischemic stroke, risk factors including PO estrogen and LDL 105, discharged with ASA 81mg and holter monitor. Cardiology inpatient stated this ap pointment needs to be completed in 2-4 weeks, 4 weeks at the LATEST. Scheduling Priority: First Available (7-10 days) Current Discharge Medication List START taking these medications Details acetaminophen (TYLENOL) 325 mg tablet Take two tablets by mouth every 4 hours as needed. Qty: 100 tablet, Refills: 3 PRESCRIPTION TYPE: Normal aspirin EC 81 mg tablet Take one tablet by mouth daily. Take with food. Qty: 90 tablet, Refills: 3 PRESCRIPTION TYPE: Normal atorvastatin (LIPITOR) 20 mg tablet Take one tablet by mouth daily. Qty: 90 tablet, Refills: 3 PRESCRIPTION TYPE: Normal CONTINUE these medications which have NOT CHANGED Details levothyroxine (SYNTHROID) 100 mcg tablet Take 100 mcg by mouth daily. PRESCRIPTION TYPE: Historical Med traZODone (DESYREL) 100 mg tablet Take 100 mg by mouth at bedtime as needed for Sleep. PRESCRIPTION TYPE: Historical Med The following medications were removed from your list. This list includes medic ations discontinued this stay and those removed from your prior med list in our system estradioL (ESTRACE) 1 mg tablet Pending items needing follow up: Follow-up appointments with neurology stroke an d cardiology, Holter monitor Signed: Anyi Jimenez MD 03/07/2020 cc: Primary Care Physician: Divina Kovacs Verified Referring physicians: Paola Joya DO Additional provider(s): documented in this encounter Medications at Time of Discharge [...] for Sleep. documented as of this encounter Progress Notes * Micaela Toney RN - 03/07/2020 4:39 PM CDT Domitila Hansen was discharged on 03/07/2020. . Discharge instructions and stroke education reviewed with patient. Valuables returned: Personal Items / Valuables: Clothing, Valuables/Belongings sent home with family /friends, Wallet, Credit Card(s), [place], Cell Phone, Eyeglasses/Contacts Dollar Castro Amount: 80 $ Where Are Valuables Stored?: pt closet. All patient belongings sent with patient. VSS. Patient transported via wheelchair by BETHANY Camargo to front of [facility] A a nd met by patient's daughter and who will be driving patient home. * Josephine Lucas - 03/07/2020 1:56 PM CDT SPEECH-LANGUAGE PATHOLOGY SPEECH-LANGUAGE ASSESSMENT EVALUATION SUMMARY Summary* Summary: A speech-language evaluation completed this date. Pt presents with expr essive/receptive language skills WNL. No deficits noted in any domain. Because p t is left-handed, followed up with OT who did not report any additional difficul ties in the area of cognition. Pt confirms no acute changes in cognitive functio n since CVA. See below. Prognosis: Good Plan: Patient Functioning at Baseline. No Further Speech Therapy Indicated at th is Time. Results Reported to Physician: Yes(Via EMR) RECOMMENDATIONS: No ST warranted at this time. AUDITORY COMPREHENSION Overall Severity*: WNL Comments*: Complex yes/no: 100% 2-step: 100% 3-step: 100% Paragraph: 100% VERBAL EXPRESSION Overall Severity*: WNL Comments*: Confrontation namin% Description: 100% Abstract language: 80% Definitions: 100% Generative - concrete: 12 in 60 seconds Generative - abstract: 9 in 60 seconds READING COMPREHENSION Overall Severity*: WNL Comments*: Sentences: 100% Paragraph: 80% WRITTEN EXPRESSION Overall Severity*: WNL Comments*: Biographical: 100% Words: 100% Phrases: 100% Sentences: 100% Objective* Relevant Med Background: Pt is 59 yo female with PMH of partial thyroidectomy an d hysterectomy, no stroke history or risk factors. Per report patient went to be d normal around 10:30pm last night and woke up at 0700 confused and with speech difficulty. Patient went to OSH [facility] [address] in [place], [place] where NIH was origi rei 2 for aphasia/dysarthria but improved to 1 for slight expressive aphasia. CTA of head revealed possible left M2 occlusion so patient was transferred to for stroke workup/possible intervention. Patient arrival at 1335 and was admitt ed to [id number]. NIH 3-4 for confusion, slight aphasia, and dysarthria. Handedness: Left Hearing: WFL Lives With: Spouse Psychosocial Status: Willing and Cooperative to Participate Persons Present: None MRI Head WO Contrast 03/06 IMPRESSION 1. Small acute or early subacute posterior left insular infarct (similar to prior CT). 2. No evidence of hemorrhagic conversion or additional infarct. 3. Several punctate FLAIR hyperintense supratentorial white matter foci, likely due to minor chronic small vessel ischemic changes and/or migraine Headaches. Subjective* Pain: Patient has no complaint of pain Pain Level Current*: No pain Trach Presence: No Feeding Tube Present During Eval: None Education* Persons Educated: Patient Barriers To Learning: None Noted Teaching Methods: Verbal Topics: Aphasia Patient Response: Verbalized Understanding Goal Formulation: With Patient Speech Discharge Recommendations Recommendation: No further ST recommended at this time Therapist: Josephine Antunez MA, CCC-PROFESSIONAL VOLLEYBALL PLAYER Voalte: [id number] Date: 03/07/2020 * Jennifer Amaya, PT - 03/07/2020 12:21 PM CDT PHYSICAL THERAPY NOTE Name: Domitila Hansen : 1960 Age: 59 y.o. Admission Date: 03/06/2020 LOS: 1 day Per discussion with OT, patient reports no concerns with mobility with no PT goa ls identified. PT will discontinue service, please re-consult if the patient has a decline in functional status. Therapist: Jennifer Amaya, PT Date: 03/07/2020 T * Rachel Urena, OT - 03/07/2020 11:50 AM CDT OCCUPATIONAL THERAPY ASSESSMENT/DISCHARGE NOTE Name: Domitila Hansen : 1960 Age: 59 y.o. Admission Date: 03/06/2020 LOS: 1 day Mobility Patient Turn/Position: Self;Supine Progressive Mobility Level: Walk laps Distance Walked (feet): 650 ft Level of Assistance: Independent Assistive Device: None Time Tolerated: 11-30 minutes Activity Limited By: No limitations Subjective Pertinent Dx per Physician: stroke symptoms of aphasia and apraxia, s/p IA tPA f or L M3 clot with TICI 3 recanalization Precautions: Falls Pain / Complaints: Patient has no c/o pain Objective Psychosocial Status: Willing and Cooperative to Participate Home Living Type of Home: House Home Layout: Two Level;Bed/Bath Upstairs Bathroom Shower / Tub: Walk-in Shower Prior Function Level Of [place]: Independent with ADLs and functional transfers;Independen t with homemaking w/ ambulation Lives With: Spouse Vision Current Vision: Wears Glasses Only for Reading Comment: no new visual deficits ADL's Comment: Pt independent with bed mobility, transfer, ambulation. Able to do head turns in all directions and change gait speeds without difficulty. Went up and down 3 steps without railing without difficulty. Squatted and stood several time s to retrieve items out of suitcase and carry them to the bathroom. Stood do dof f gown, don bra, sweatshift, underwear and leggings, able to keep balance while standing on one foot. Brushed teeth and washed face at sink without assistance. No dizziness but did c/o nausea throughout session for which she has already rec eived medications. No apparent apraxia, no coordination or strength deficit and no obvious aphasia. Pt able to carry on a conversation without difficulty. All s ymptoms appear to be resolved and there are no skilled therapy needs identified. Vitals stable. Pt still ICU status, pt educated to continue to request assist w ith lines/monitor leads when getting up, otherwise pt safe to be up ad joon. Assessment No Skilled OT: At Baseline Function;Independent with ADLs;Safe To Return Home;No Acute OT Goals Identified Plan OT Frequency: No Further Treatment OT Discharge Recommendations Recommendation: No further OT recommended at this time;Home/prior living situati on Therapist: Rachel Urena OT Date: 03/07/2020 * Rachel Urena OT - 03/07/2020 10:58 AM CDT OCCUPATIONAL THERAPY NOTE Name: Domitila Hansen : 1960 Age: 59 y.o. Admission Date: 03/06/2020 LOS: 1 day Pt getting bedside test. Will continue to attempt evaluation. Therapist: Rachel Urena, OT Date: 03/07/2020 * Josephine Lucas - 03/07/2020 8:33 AM CDT SPEECH-LANGUAGE PATHOLOGY NO TREATMENT NOTE Follow-up for bedside swallow evaluation orders received on 03/06. Pt since initi ated on regular/thin diet after passing repeat Stroke Dysphagia Screen. Pt confi estevan no difficulty with AM meal however intake reduced 2/2 nausea. Will defer ord ers at this time and re-engage if needed. Plan to see pt for speech-language evaluation this AM. Upon PROFESSIONAL VOLLEYBALL PLAYER arrival, pt in p rocess of ECHO. Will re-attempt later this date as schedule allows and pt availa ble. Attempted to see patient x1 time Therapist: Josephine Antunez MA, CCC-PROFESSIONAL VOLLEYBALL PLAYER Voalte: [id number] Date: 03/07/2020 * Anyi Jimenez MD - 03/07/2020 6:14 AM CDT Neuro Critical Care Progress Note Domitila Hansen Admission Date: 03/06/2020 LOS: 1 day Full Code ASSESSMENT/PLAN Patient Active Problem List Diagnosis Date Noted Acute ischemic stroke (HCC) 03/06/2020 Domitila Hansen is a 59 y.o. female with PMH partial thyroidectomy and hysterectom y, no stroke history or risk factors. Woke up @ 0700 with dysarthria, exp aphasi a 03/06, last known normal 2230 03/05. Presented to OSH ED [address] in [place], [place], initial NIH 2 and symptoms improved other than expressive aphasia/dysart hria. CTA head concern for left M2 occlusion. Transferred to [facility] and decline in exam again on arrival, NIH 3. To IR for IA tPA L M3 inferior division branch oc clusion, recanalization of clot TICI 3. Hospital and ICU course: 03/06: admit to neuro ICU s/p IR for IA tPA with recanalization of clot - TICI 3 03/07: complete stroke work-up, possible discharge this afternoon Neuro: Acute L MCA ischemic stroke Ischemic Stroke Risk Factors Risk factor Present? Target Patient at target? Comments 1. Hypertension No BP <160 Yes 2. Diabetes No HBA1C<7 Pending 3. Dyslipidemia No LDL<70? No LDL 105, start statin 4. H/o stroke/TIA No 5. Atrial fibrillation No If yes, anticoag? No If no anticoagulation, why not? 6. Tobacco abuse No Quit date n/a Anti-platelet treatment - start ASA 81mg QD today Plan: - s/p IR, left M3 inferior division branch occlusion s/p IA tPA @1530, recanaliz ation TICI 3 - MRI head wo contrast 03/06 - small stroke in L insular region, no evidence of h emorrhagic conversion or additional infarct - echocardiogram - ordered, pending - LDL 03/07 105, start statin atorvastatin 20mg QD - HbA1c pending, no PMH of diabetes - UDS + for benzodiazepines, received midazolam during IR procedure - start ASA 81mg QD - recommend patient no longer take estrogen - SBP <160 - meeting goal without intervention - VTE prophylaxis: Mechanical prophylaxis; Sequential compression device, if pat ient stays in hospital additional day then will start prophylactic heparin - Neuro-ICU monitoring, neurochecks q 1 hrs Sedation/Pain Management: - PRN tylenol - Assess for delirium daily - continue DIRECTOR OF ASSESSING trazodone 100mg QHS PRN Cardiac: - SBP goal: <160 - MAP goal > 65 - PRN hydralazine and labetalol available - not required Respiratory: - Spo2 goal >95% - satting well on RA GI: - Feeding: regular diet - passed dysphagia screen with RN 03/06 - neuro bowel regimen, ensure daily BM Heme: - assess for coagulopathy, maintain platelets above 100k, INR <1.5 - Hb 12.9 Plt 159 ID: - aim for normothermia, Temp <38.3 celsius, normothermia protocol if febrile - WBC 6.2 - Tmax 36.9 Renal: - Aim for normovolemia - BUN 10, Cr 0.63 Intake/Output Summary (Last 24 hours) at 03/07/2020 0951 Last data filed at 03/07/2020 0800 Gross per 24 hour Intake 570 ml Output 850 ml Net -280 ml Endocrine: Hypothyroidism Hx hysterectomy with oopherectomy - Blood glucose goal 100-180mg/dl - glucose 95 on BMP - holding DIRECTOR OF ASSESSING estradiol 2mg QD - recommended patient not take on discharge - continue DIRECTOR OF ASSESSING 100mcg levothyroxine FEN: - IVF: none - Magnesium goal >2.0, i-Juan goal > 1.0, Potassium goal >4.0 mEq/L - adult critical care electrolyte protocol Skin/MSK: Prophylaxis Review: A)GI: n/a B) Lines: No C) Urinary Catheter: No D) Antibiotic Usage: No E) VTE: Mechanical prophylaxis; Sequential compression device F) Isolation: n/a G)Seizures: n/a I) Restraints: Patient assessed for need for restraints. Disposition/Family: Stable to transfer to floor. vs possible discharge this afte luna Primary service: Neuro ICU Consults: None SUBJECTIVE Domitila Hansen is a 59 y.o. female. Overnight Events: No new events noted. Dora ent with nausea this AM after trying to eat. Otherwise feels very well. Continue d good speech, improved dysarthria on exam. OBJECTIVE Vital Signs: Last Filed Vital Signs: 24 Hour Ra nge BP: 94/55 (03/07 0500) Temp: 36.8 C (98.2 F) (03/07 040) Pulse: 67 (03/07 0500) Respirations: 12 PER MINUTE (03/07 050) SpO2: 94 % (03/07 0500) Height: 162.6 cm (64") (03/06 2200) Weight: 68.9 kg (151 lb 14.4 oz) (03/06 2200) BP: (94-127)/(55-82) Temp: [36.5 C (97.7 F)-36.9 C (98.4 F)] Pulse: [66-84] Respirations: [11 PER MINUTE-16 PER MINUTE] SpO2: [94 %-99 %] Intensity Pain Scale (Self Report): (not recorded) Vitals: 03/06/202199 Weight: 68.9 kg (151 lb 14.4 oz) Artificial airway: None Ventilator/ Respiratory Therapy: No Vent weaning trial: Not applicable Lines: Peripheral Line Drains: None Critical Care Vitals: ICP Monitoring: Hemodynamics/Oxycalcs: Intake/Output Summary: (Last 24 hours) Intake/Output Summary (Last 24 hours) at 03/07/2020 0951 Last data filed at 03/07/2020 0800 Gross per 24 hour Intake 570 ml Output 850 ml Net -280 ml Physical Exam: Blood pressure 94/55, pulse 67, temperature 36.8 C (98.2 F), height 162.6 cm (64"), weight 68.9 kg (151 lb 14.4 oz), SpO2 94 %. Andre coma score: E: 4 - Opens eyes on own M: 6 - Follows simple motor commands V: 5 - Alert and oriented Neuro: Mental Status: AOx4 Cranial Nerves: Cranial nerves 2-12 INTACT by inspection. Motor: RUE: Strength: 5/5; follows commands RLE: Strength: 5/5; follows commands LUE: Strength: 5/5; follows commands LLE: Strength: 5/5; follows commands Sensory: normal Groin site: no palpable hematoma, slightly tender to palpation. Distal pulse int act. Lungs: clear to auscultation bilaterally Heart: regular rate and rhythm, S1, S2 normal, no murmur, click, rub or gallop Abdomen: soft, non-tender. Bowel sounds normal. No masses, no organomegaly Extremities: extremities normal, atraumatic, no cyanosis or edema Skin: Skin color, texture, turgor normal. No rashes or lesions Point of Care Testing: (Last 24 hours) Glucose: 95 (03/07/20 0408) Lab Review: Pertinent labs reviewed Radiology and Other Diagnostic Procedures Review: Pertinent radiologic and diag nostic procedures reviewed. Anyi Jimenez MD Date: 03/07/2020 [id number] Associated attestation - Yudi Martinez MD - 03/07/2020 11:07 AM CDT ATTESTATION I have seen, personally fully evaluated, and discussed patient with Dr. Jimenez . I agree with the objective findings and agree with the plan of care as docume nted by the resident with the exceptions noted. The patient is critically ill w ith acute ischemic stroke post-IA tpa administration. Continue with stroke work -up for etiology and involve therapy services to assist in recovery. I spent 40 minutes (excluding time spent performing or supervising any procedures) providi ng and personally directing critical care services, including reviewing imaging and laboratory results. Staff name: Yuid Martinez MD Date: 03/07/2020 * Olimpia Timmons RN - 03/06/2020 7:30 PM CDT Patient arrived to room # 5128 Bedside safety checks completed. Initial patient assessment completed. Refer to flowsheet for details. Admission skin assessment completed with:Caden Rodriguez RN Pressure injury present on arrival?: No 1. Head/Face/Neck: No 2. Trunk/Back: No 3. Upper Extremities: No 4. Lower Extremities: No 5. Pelvic/Coccyx: No 6. Assessed for device associated injury? Yes 7. Malnutrition Screening Tool (Nursing Nutrition Assessment) Completed? Yes See Doc Flowsheet for additional wound details. INTERVENTIONS: Skin integrity protocol * Daisy Bhat RN - 03/06/2020 7:15 PM CDT Pt taken to to MRI at 1830 with geetha Durham RN. Report given to INDIA Doan. Pt returned to room [id number] at 1915. * Marva Zhong RN - 03/06/2020 6:30 PM CDT Pt taken to MRI via bed on monitor with Geetha OSBORNE and tech. Pt monitored by Jordy goncalves RN during scan. * Stacey Harden RT - 03/06/2020 5:47 PM CDT RT Adult Assessment Note NAME:Domitila Hansen :1960 AG E: 59 y.o. ADMISSION DATE: 03/06/2020 DAYS ADMITTED: LOS: 0 days RT Treatment Plan: Additional Comments: Impressions of the patient: Ms. Hansen is resting comfortably on room air at thi s time. Intervention(s)/outcome(s): RT Eval. Patient education that was completed: None Recommendations to the care team: No indication for RT interventions at this tutu e. Vital Signs: Pulse: 69 RR: 14 PER MINUTE SpO2: 98 % O2 Device: Liter Flow: O2%: 21 % Breath Sounds: Clear (implies normal) Respiratory Effort: Non-Labored * Malik Gross RN - 03/06/2020 2:42 PM CDT Anesthesia present for start of case, see their documentation for vital signs an d medication administration * Josephine Lucas - 03/06/2020 2:31 PM CDT SPEECH-LANGUAGE PATHOLOGY NO TREATMENT NOTE Orders for bedside swallow evaluation appreciated and chart review completed. Pt currently off of unit for further stroke work-up. Per RN, unclear at this time if pt will need further intervention and may not be appropriate for assessment. Will re-attempt later this date as able. HPI: Pt is 59 yo female with PMH of partial thyroidectomy and hysterectomy, no s troke history or risk factors. Per report patient went to bed normal around 10:3 0pm last night and woke up at 0700 confused and with speech difficulty. Patient went to OSH [facility] in [place], [place] where NIH was originally 2 for aphasia/ dysarthria but improved to 1 for slight expressive aphasia. CTA of head revealed possible left M2 occlusion so patient was transferred to for stroke workup/p ossible intervention. Patient arrival at 1335 and was admitted to [facility]. NIH 3- 4 for confusion, slight aphasia, and dysarthria. Two prox branches of (L)MCA occluded per head CT at OSH Attempted to see patient x1 time Therapist: Josephine Antunez MA, CCC-PROFESSIONAL VOLLEYBALL PLAYER Voalte: [id number] Date: 03/06/2020 documented in this encounter H&P Notes * Anyi Jimenez MD - 03/06/2020 2:46 PM CDT Neuro Critical Care History and Physical Note Domitiladra Hansen Admission Date: 03/06/2020 LOS: 0 days Full Code ASSESSMENT/PLAN Patient Active Problem List Diagnosis Date Noted Acute ischemic stroke (HCC) 03/06/2020 Domitila Hansen is a 59 y.o. female with PMH partial thyroidectomy and hysterectom y, no stroke history or risk factors. Woke up @ 0700 with dysarthria, exp aphasi a 03/06, last known normal 2230 03/05. Presented to [facility] in [place], [place], initial NIH 2 and symptoms improved other than expressive aphasia/dysart hria. CTA head concern for left M2 occlusion. Transferred to [facility] and decline in exam again on arrival, NIH 3. To IR for IA tPA L M3 inferior division branch oc clusion, recanalization of clot TICI 3. Hospital and ICU course: 03/06: admit to neuro ICU s/p IR for IA tPA with recanalization of clot - TICI 3 Neuro: Acute L MCA ischemic stroke Stroke Symptom Onset time: 0600, 03/06/20 TPA given at: n/a, unable to give due to delayed presentation Initial NIH: 2 NIH post TPA: n/a IR: Yes Follow up Imaging: CT head with hypodensity in left insular region, CTP with mod erate sized mismatch perfusion defect involving posterior L MCA territory Ischemic Stroke Risk Factors Risk factor Present? Target Patient at target? Comments 1. Hypertension No BP <160 Yes 2. Diabetes No HBA1C<7 Pending 3. Dyslipidemia No LDL<70? Pending 4. H/o stroke/TIA No 5. Atrial fibrillation No If yes, anticoag? No If no anticoagulation, why not? 6. Tobacco abuse No Quit date n/a Anti-platelet treatment - decision to be made after MRI If afib/flutter present, is patient on anticoagulation? No afib/flutter, n/a Rehabilitation services involved: OT, PT and ST Cognitive impairment suspected? No Rehabilitation medicine team consulted: Yes Plan: - s/p IR, left M3 inferior division branch occlusion s/p IA tPA, recanalization TICI 3 - MRI head wo contrast - echocardiogram - Labs including lipid profile and HbA1c - antiplatelet use to be determined after MRI - SBP <160 - VTE prophylaxis: Mechanical prophylaxis; Sequential compression device hold lo venox until after MRI - Neuro-ICU monitoring, neurochecks q 1 hrs, parameters for prevention of second lisseth brain injury (avoid hypotension, hypoxia, fever, hyperglycemia,significant a nemia, diagnose and treatment of seizures, electrolyte abnormalities) Sedation/Pain Management: - PRN tylenol - Assess for delirium daily - continue DIRECTOR OF ASSESSING trazodone 100mg QHS PRN Cardiac: - SBP goal: <160 - MAP goal > 65 - PRN hydralazine and labetalol available Respiratory: - Spo2 goal >95% - satting well on RA GI: - Feeding: NPO - stroke dysphagia screen to be completed by RN, if does not pass then PROFESSIONAL VOLLEYBALL PLAYER consu lt - neuro bowel regimen, ensure daily BM Heme: - assess for coagulopathy, maintain platelets above 100k, INR <1.5 ID: - aim for normothermia, Temp <38.3 celsius, normothermia protocol if febrile Renal: - Aim for normovolemia Endocrine: Hypothyroidism Hx hysterectomy with oopherectomy - Blood glucose goal 100-180mg/dl - holding DIRECTOR OF ASSESSING estradiol 2mg QD - continue DIRECTOR OF ASSESSING 100mcg levothyroxine FEN: - IVF: none - Magnesium goal >2.0, i-Juan goal > 1.0, Potassium goal >4.0 mEq/L - adult critical care electrolyte protocol Prophylaxis Review: A)GI: n/a B) Lines: No C) Urinary Catheter: No D) Antibiotic Usage: No E) VTE: Mechanical prophylaxis; Sequential compression device F) Isolation: n/a G)Seizures: n/a I) Restraints: Patient assessed for need for restraints. Disposition/Family: Unchanged. Primary service: [facility] Consults: None SUBJECTIVE Chief Complaint: Slurred speech History of Present Illness: Domitila Hansen is a 59 y.o. female with PMH partial t hyroidectomy and hysterectomy, no stroke history or risk factors. Woke up @ 0700 with dysarthria, exp aphasia 03/06, last known normal 2230 03/05. Presented to [facility] in [place], [place], initial NIH 2 and symptoms improved other than expressive aphasia/dysarthria. CTA head concern for left M2 occlusion. Transf erred to [facility] and decline in exam again on arrival, NIH 3. CT perfusion with sma ll mismatch. 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 T o IR for intervention. 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 Has done this for 10-15 years. Lives at home with Gerardo. They have three children, two sons and a daughter. She is independent at home, able to take care of herself, [employer], manage finances, etc. If unable to make decisions for herself she woul d want her daughter, Estela, to make decisions for her. Her daughter is a nurs e practitioner. 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 Has done this for 10-15 years. Lives at home with Gerardo. They have three children, two sons and a daughter. She is independent at home, able to take care of herself, [employer], manage finances, etc. If unable to make decisions for herself she woul d want her daughter, Estela, to make decisions for her. Her daughter is a nurs e practitioner. Code Status: Full Code Decision Maker: DaughterEstela, is an NUT GRINDER. [phone] Immunizations (includes history and patient reported): There is no immunization history on file for this patient. Allergies: Patient has no allergy information on record. DIRECTOR OF ASSESSING Medications: levothyroxine 100mcg QD, trazodone 100mg QHS PRN, estradiol 2mg QD Review of Systems: A 14 point review of systems was negative except for: Neurological: positive for headaches and speech problems OBJECTIVE Vital Signs: Last Filed Vital Signs: 24 Hour Banner Intensity Pain Scale (Self Report): 6 (03/06/20 1630) There were no vitals filed for this visit. Vitals: 03/06/20 1630 03/06/20 1645 03/06/20 1700 BP: 127/73 119/77 105/58 BP Source: Arm, Right Upper Pulse: 72 74 74 Temp: 36.5 C (97.7 F) SpO2: 99% 98% 99% Artificial airway: None Ventilator/ Respiratory Therapy: No Vent weaning trial: Not applicable Lines: Peripheral Line Drains: None Critical Care Vitals: ICP Monitoring: Hemodynamics/Oxycalcs: Intake/Output Summary: (Last 24 hours) Intake/Output Summary (Last 24 hours) at 03/06/2020 1700 Last data filed at 03/06/2020 1640 Gross per 24 hour Intake Output 300 ml Net -300 ml Physical Exam: Blood pressure 105/58, pulse 74, temperature 36.5 C (97.7 F), SpO2 99 %. [place] coma score: E: 4 - Opens eyes on own M: 6 - Follows simple motor commands V: 5 - Alert and oriented Neuro: Mental Status: awake, alert, conversant, oriented x4 Speech: naming, repetition intact. Some mild deficit in articulation. Cranial Nerves: Cranial nerves 2-12 INTACT by inspection. - Pupil exam: Size: 4mm bl Reactivity: brisk - EOM: intact Motor: No pronator drift RUE: Strength: 5/5; follows commands RLE: Strength: 5/5; follows commands. Assessed foot, unable to assess rest of leg due to patient needing to keep it straight and flat post-IR. LUE: Strength: 5/5; follows commands LLE: Strength: 5/5; follows commands Sensory: normal Lungs: clear to auscultation bilaterally Heart: regular rate and rhythm, S1, S2 normal, no murmur, click, rub or gallop Abdomen: soft, non-tender. Bowel sounds normal. No masses, no organomegaly Extremities: extremities normal, atraumatic, no cyanosis or edema Skin: Skin color, texture, turgor normal. No rashes or lesions Point of Care Testing: (Last 24 hours): Lab Review: Pertinent labs reviewed Radiology and Other Diagnostic Procedures Review: Pertinent radiologic and diag nostic procedures reviewed. Anyi Jimenez MD Date: 03/06/[phone] Associated attestation - Yudi Martinez MD - 03/07/2020 10:49 AM CDT ATTESTATION I have seen, personally fully evaluated, and discussed patient with Dr. Jimenez . I agree with the objective findings and agree with the plan of care as docume nted by the resident with the exceptions noted. The patient is critically ill w ith acute ischemic stroke. I spent 35 minutes (excluding time spent performing or supervising any procedures) providing and personally directing critical care services, including reviewing imaging and laboratory results. Staff name: uYdi Martinez MD Date: 03/07/2020 documented in this encounter Consult Notes * Ruben Guaman APRN-NADIA - 03/06/2020 2:36 PM CDT Associated Order(s): CONSULT INTERVENTIONAL RADIOLOGY PHYSICIAN Pre-Procedure History and Physical/Sedation Plan Procedure Date: 03/06/2020 Planned Procedure(s): Cerebral arteriogram Indication: Acute stroke intervention Chief Complaint: Confusion, speech difficulty History of Present Illness: Domitila Hansen is a 59 y.o. female who presents today for procedure. Last known normal last night at 2230, awoke with confusion and s peech difficulty per notation. CTA significant for possible left M2 occlusion. Patient Active Problem List Diagnosis Date Noted Acute ischemic stroke (HCC) 03/06/2020 No past medical history on file. No past surgical history on file. No medications prior to admission. Allergies not on file Social History: Social History Tobacco Use Smoking status: Not on file Substance Use Topics Alcohol use: Not on file No family history on file. Review of Systems Review of systems not obtained due to patient factors. Previous Personal Anesthetic/Sedation History: Denies adverse events related to sedation/anesthesia. Previous Family Anesthetic/Sedation History: Denies adverse events related to se dation/anesthesia. Physical Exam: Vital Signs: Last Filed In 24 Hours Vital Signs: 24 Hour Range General appearance: NAD Neurologic: aphasic, dysarthric Lungs: Non labored at rest Heart: regular rate and rhythm Airway: Per anesthesia Head and Neck: Per anesthesia Mouth: Per anesthesia NPO status: Acceptable Status: Not Anesthesia Classification: Per anesthesia Pre-operative anxiolysis Plan: Per anesthesia Sedation/Medication Plan: Per anesthesia Discussion/Reviews: Physician has discussed risks and alternatives of this type of sedation and above planned procedures with family memebr who gave consent Lab/Radiology/Other Diagnostic Tests: Labs: Pertinent labs reviewed Ruben Guaman APRN-NUT GRINDER Pager [phone] documented in this encounter Miscellaneous Notes * Care Plan - Micaela Toney RN - 03/07/2020 4:41 PM CDT Discharge and stroke education reviewed with patient. Patient evaluated by PT/OT and deemed safe for ambulation and home care. Patient discharged without fall o ccurrence or pressure injury. * Care Plan - Micaela Toney RN - 03/07/2020 4:41 PM CDT Patient discharge and instructions reviewed with patient. Patient evaluated by P T/OT and deemed safe for ambulation. * Case Mgmt DC Plan - Marion Prather RN - 03/07/2020 9:56 AM CDT Case Management Admission Assessment NAME:Domitila Hansen : 8 AGE: 59 y.o. ADMISSION DATE: 03/06/2020 DAYS ADMITTED: LOS: 1 day Todays Date: 03/07/2020 Source of Information: patient's -Gerardo, JILLIAN This CM met with pt for assessment on this date. Provided contact information a nd explanation of SW/NCM roles. Reviewed [facility], Preparing for Disc harge, and Preferred Provider Network hand-outs. Provided opportunity for quest ions and discussion. Pt/family encouraged to contact Case Management team with q uestions and concerns during hospitalization and until patient is able to transi tion back to the patient's primary care physician. -NCM called pt's Gerardo to obtain assessment information due to jon s recommendations. -Gerardo reports that prior to this admission pt was independent of all ADLs and he denies previous utilization of DME, home health services or post-acute setting. -Gerardo reports that pt's PCP moved away from [place], [place] (where pt is from) las t year and she has not obtained a new PCP. -Gerardo reports that all of pt's medications are affordable. -D/c date and recs uncertain at this time, [facility] will continue to monitor for john tional d/c needs. Plan Plan: Case Management Assessment, Discharge Planning for Home Anticipated, Disch arge Planning for Facility Anticipated, Assist PRN with /NCM Services Patient Address/Phone No address on file. There are no phone numbers on file. Emergency Contact Extended Emergency Contact Information Primary Emergency Contact: Gerardo Hansen Mobile Relation: Spouse Gear Repairer needed? No Secondary Emergency Contact: Kami Hansen Mobile Relation: Daughter Gear Repairer needed? No Healthcare Directive Healthcare Directive: Yes, patient has a healthcare directive Type of Healthcare Directive: Durable power of patent attorney for healthcare Location of Healthcare Directive: Patient does not have it with him/her Would patient like to fill out a (a new) Healthcare Directive?: No, patient decl ined Psych Advance Directive (Psych unit only): No, patient does not have a Psych Adv ance Directive Transportation Does the patient need discharge transport arranged?: No Transportation Name, Phone and Availability #1: pt's , p: [phone] Expected Discharge Date Expected Discharge Date: 03/09/20 Expected Discharge Time: 1200 Living Situation Prior to Admission ? Living Arrangements Type of Residence: Home, independent Living Arrangements: Spouse/significant other Bathroom Shower / Tub: Walk-in Shower, Tub/Shower Unit How many levels in the residence?: 2(15 steps between 1st and 2nd floor ) Can patient live on one level if needed?: No Does residence have entry and/or side stairs?: Yes(5 steps to enter ) Assistance needed prior to admit or anticipated on discharge: No Who provides assistance or could if needed?: pt's or daughter Are they in good health?: Yes Can support system provide 24/7 care if needed?: Yes ? Level of Function Prior level of function: Independent ? Cognitive Abilities Cognitive Abilities: Unable to Assess Financial Resources ? Coverage Primary Insurance: Medicare Replacement Additional Coverage: RX(pt's states all medications are affordable ) ? Source of Income ? Financial Assistance Needed? N/a Psychosocial Needs ? Mental Health Mental Health History: No ? Substance Use History Substance Use History Screen: No ? Other N/a Current/Previous Services ? PCP Divina Kovacs, , ? Pharmacy No Pharmacies Listed ? Durable Medical Equipment Durable Medical Equipment at home: None ? Home Health Receiving home health: No ? Hemodialysis or Peritoneal Dialysis Undergoing hemodialysis or peritoneal dialysis: No ? Tube/Enteral Feeds Receive tube/enteral feeds: No ? Infusion Receive infusions: No ? Private Duty Private duty help used: No ? Home and Community Based Services Home and community based services: No ? [place]: No ? Hospice Hospice: No ? Outpatient Therapy PT: No OT: No PROFESSIONAL VOLLEYBALL PLAYER: No ? Longterm Facility/Jail SNF: No NH: No ? Inpatient Rehab IPR: No ? Long-Term Acute Care Hospital LTACH: No ? Acute Hospital Stay Acute Hospital Stay: In the past Was patient's stay within the last 30 days?: No RIC Patiño corporate director Nurse M[employer] Banker Pager: [phone] * Advanced Care Planning/Resuscitation Status - Anyi Jimenez MD - 03/06/2020 4:30 PM CDT Advance Care Planning/Resuscitation Status Conversation Individuals present for advance care planning conversation: patient and resident /fellow physician Pertinent details of conversation (including direct quotes from patient or surro gate): Discussed code status with patient. Asked that if an emergency situation was to arise and her heart stopped and/or she were unable to breath without assi stance, would she like everything done to resuscitate her including chest compre ssions, shocks, and intubation/mechanical ventilation. She stated that she would not want prolonged ventilation if she could not make a meaningful recovery, how ever in the emergent situation she would like everything done and for decisions to be made regarding goals of care and recovery with her daughter, Estela, as her surrogate decision maker. Outcome of conversation: Full Code Documents completed as a result of this conversation: None Other documents present, which outline patient/surrogate wishes: None Attestation? N/A * Procedures (Immed Post or Bedside) - Cindy Poe MD - 03/06/2020 4:05 PM CDT Neuro Interventional Immediate Post Procedure Note Date: 03/06/2020 Attending Physician: Cindy Poe MD Cops(s): Jennifer Kruger Stroke Treatment Time out performed: Consent obtained, correct patient verified, correct procedur e verified, correct site verified, patient marked as necessary. Indications: Left MCA stroke Anesthesia: MAC (Monitored Anesthesia Care) Sedation/Medication Plan: MAC (Monitored Anesthesia Care) Post Op Dx: Left mca stroke Findings: Left M3 inferior division branch occlusion - s/p IA tPA with recanali zation of clot - TICI 3 Estimated Blood Loss: Less than 50 ml Specimen(s) Removed/Disposition: None Complications: None Comments: none Closure Device: 8F Angioseal Recommended Blood Pressure Parameters: SBP <160 mmHg Recommended Anticoagulants: Pending MRI Neuro Exam: Awake, alert, fluent speech (improved from pre-procedure) Cindy Poe MD Pager: [phone] * Acute Stroke Response - Rayray Rowland MD - 03/06/2020 3:21 PM CDT NAME:Domitila Hansen :1960 AG E: 59 y.o. ADMISSION DATE: 03/06/2020 DAYS ADMITTED: LOS: 0 days Date of Service: 03/06/2020 Allergies: Patient has no allergy information on record. Type of Acute Stroke Response Team note: Consult Assessment & Plan Chief Complaint: "slurred speech" Assessment: Domitila Hansen is a 59 y.o. female with h/o hypothyroid presented to OSH with slurred speech CTA with distal M2 occlusion x2 vessels. LKW previous ni ght. Not a TPA candidate due to delayed presentation. Unclear initial NIH at OSH . Patient with resolution of symptoms when transferring. NIH on arrival at 3 for aphasia, orientation and dysarthria. Patient with fluctuating severity of sy mptoms Repeat CT at with hypodensity in left insular region CTP with moderate sized mismatch perfusion defect involving the posterior left M CA territory. Decision was made with patient and her daughter who is an NUT GRINDER for IR and IA TPA s zoe patients job is dependant on her speech Pre-event mRS: 0 - No symptoms at all Plan: - Admit to NEICU post IR - MRI head WO - Stroke risk factor assessment Labs to include FLP, A1c Echocardiogram Telemetry to monitor for arrhythmia Evaluation of smoking history and smoking cessation consult if tobaccoism prese nt Antiplt therapy determiantion after MRI - CBC, BMP routine - PT/OT/PROFESSIONAL VOLLEYBALL PLAYER consult eval and treat - Rehab consult for assessment of post stroke care FEN: NPO until speech eval, NS @ 100 as pt received contrast media PPX: SCDs and Lovenox for DVT prevention The patient was seen and discussed with Dr. Cox History of Present Ilness History of Present Illness: with h/o hypothyroid presented to OSH with slurred s peech CTA with distal M2 occlusion x2 vessels. LKW previous night. Not a TPA can didate due to delayed presentation. Unclear initial NIH at OSH. Patient with res olution of symptoms when transferring. NIH on arrival at 3 for aphasia, orien tation and dysarthria. Review of Systems A 14 point review of systems was negative except for: as noted in HPI Constitutional: negative Eyes: negative Ears, nose, mouth, throat, and face: negative Respiratory: negative Cardiovascular: negative Gastrointestinal: negative Genitourinary: negative Integument/breast: negative Hematologic/lymphatic: negative Musculoskeletal: negative Neurological: negative Behavioral/Psych: negative Endocrine: negative Allergic/Immunologic: negative Stroke Activation Summary Patient Arrival: 1335 ASRT Arrival: 1245 Location of Response : [facility] Page Received: 1322 Clinical Presentation: Aphasia, Dysarthria Signs & Symptoms: Last Known Well Last Known Well - Date: 03/05/20 Last Known Well - Time: 2229(bed time yesterday ) CT/CTP/CTA: NIHSS Completed at: 215PM NIH Stroke Scale Item Scoring Definition Score 1a. LOC 0=alert and responsive 1=arousable to minor stimulation 2=arousable only to painful stimulation 3=reflex responses or unrousable 0 1b. LOC questions-as patients age and month. Must be exact. 0=both correct 1=one correct (or dysarthria, intubated, foreign language) 2=neither correct 1 1c. Commands-open/close eyes, hand bander and release non-paretic hand (other 1 step co mmands or mimic OK) 0=both correct (ok if impaired by weakness) 1=one correct 2=neither correct 0 2. Best Gaze-horizontal EOM by voluntary or Dolls 0=normal 1=partial gaze palsy (abnormal gaze in one or both eyes) 2=forced eye deviation or total paresis which cannot be overcome by Dolls 0 3. Visual Field-use visual threat if necessary. If monocular, score field of goo d eye 0=no visual loss 1=partial hemianopia, quadrantanopia, extinction 2=complete hemianopia 3=bilateral hemianopia or blindness 0 4. Facial Palsy-if stuporous, check symmetry of grimace to pain 0=normal 1=minor paralysis, flat NLF, asymm smile 2=partial paralysis (lower face=UMN) 3=complete paralysis (upper and lower face) 0 5. Motor Arm-arms outstretched 90 deg (sitting) or 45 deg (supine) for 10 second s. Encourage best effort. 0=no drift x 10 seconds 1=drift but doesnt hit bed 2=some antigravity effort, but cant sustain 3=no antigravity effort, but even minimal mvt counts 4=no movement at all X=unable to assess due to amputation, fusion, etc L/R 0/0 6. Motor Leg-raise leg to 30 degrees supine x 5 seconds 0=no drift x 5 seconds 1=drift but doesnt hit bed 2=some antigravity effort, but cant sustain 3=no antigravity effort, but even minimal mvt counts 4=no movement at all X=unable to assess due to amputation, fusion, etc L/R 0/0 7. Limb Ataxia-check finger-nose- finger; heel-pope; and score only if out of pr oportion to paralysis 0=no ataxia (or aphasic, hemiplegic) 1=ataxia in upper or lower extremity 2=ataxia in upper AND lower extremity X=unable to assess due to amputation, fusion, etc 0 8. Sensory-use safety pin. Check grimace or withdrawal if stuporous. Score only stroke- related losses 0=normal 1=mild-mod unilateral loss but patient aware of touch 9or aphasic, confused) 2=total loss, pt unaware of touch. Coma, bilateral loss 0 9. Best Language-describe cookie jar picture, name objects, read sentences. May use repeating, writing, stereognosis 0=normal 1=mild-mod aphasia (diff but partly comprehensible) 2=severe aphasia (almost no info exchanged) 3=mute, global aphasia, coma. No 1 step commands 1 10. Dysarthria-read list of words 0=normal 1=mild-mod; slurred but intelligible 2=severe; unintelligible or mute 1 11. Extinction/Neglect- simultaneously touch patient on both hands, show fingers in both visual oshea, ask about deficit, left hand 0=normal, none detected. ( visual loss alone) 1=neglects or extinguishes to double simult stimulation in any modality 2=profound neglect in more than one modality 0 Score 3 Was IV tPA given? No The patient was not a tPA candidate due to delayed presentation Advanced imaging was interpreted at 245 PM Dysphagia screen: Did Patient Pass The Swallow Screen Part I?: No If "No" Name of Physician Notified: Shamim Performed by nursing staff and passed or Failed screen by nursing staff and toya allen ST evaluation Cardiac rhythm on presentation: NSR Health History Medical History: Diagnosis Date Hypothyroidism Surgical History: Procedure Laterality Date HX HYSTERECTOMY HX PARTIAL THYROIDECTOMY No family history on file. Social History Socioeconomic History Marital status: Not on file Spouse name: Not on file Number of children: Not on file Years of education: Not on file Highest education level: Not on file Occupational History Not on file Tobacco Use Smoking status: Never Smoker Smokeless tobacco: Never Used Substance and Sexual Activity Alcohol use: Yes Frequency: Monthly or less Drug use: Never Sexual activity: Not on file Other Topics Concern Not on file Social History Narrative Not on file Medications: [JAN Hold] aspirin chewable tablet 81 mg, 81 mg, Oral, QDAY [JAN Hold] dextrose 5% (D5W) with sodium bicarbonate 150 mEq 1,150 mL IV infusio n, , Intravenous, ONCE [JAN Hold] enoxaparin (LOVENOX) syringe 40 mg, 40 mg, Subcutaneous, QDAY PRN Medications: [JAN Hold] acetaminophen Q4H PRN OR [JAN Hold] acetaminophen Q4H PRN, altepl ase Intra-procedure Med, [JAN Hold] senna/docusate BID PRN Physical Exam HEENT: normocephalic, eyes open with no discharge, nares patent, oropharynx is c lear with no lesions, palate intact CV: regular rate, distal pulses palpable Chest: normal configuration, equal chest rise bilaterally Ab: soft, non-tender, no masses, no organomegaly Skin: no rashes or lesions Extended Neuro Exam: Mental status: alert, oriented to person/place/time Speech: Normal Abnormal Fluency x Comprehension x Articulation x Repetition x Naming x Cranial Nerves: Normal Abnormal II x III, IV, x V x VII x VIII x IX, X x XI x XII x Muscle/motor: Tone: nml Bulk: nml Fasciculations: none Pronator drift: none NF NE SA EF EE WE WF FF FE FA TA HF MARCH HE KF KE DF PF R 5 5 5 5 5 5 5 5 5 L 5 5 5 5 5 5 5 5 5 Sensation: Normal RUE LUE RLE LLE Light Touch x Pin Prick Temperature Vibration Proprioception Coordination: Normal Abnormal Right Abnormal Left Finger to Nose x Rapid alternating Heel to Pope x Finger tap Foot tap Gait and Sation: Regular gait: nml Lab/Radiology/Other Diagnostic Tests: 24-hour labs: No results found for this visit on 03/06/20 (from the past 24 mercedes r(s)). Pertinent radiology reviewed. Associated attestation - Kirsten Cox MD - 03/06/2020 5:34 PM CDT Attending Addendum: This patient is critically ill from an acute ischemic stroke. I spent 50 minutes (excluding time spent performing or supervising any procedures) providing and d irecting critical care services. The patient is at risk of life-threatening dete rioration and required immediate, high complexity decision-making as to whether the patient should be given tPA and/or taken for endovascular therapy. The cumul ative time spent on 03/06/20 providing critical care services includes: discussin g the case with the referring physician and reviewing their records, performing a neurologic exam and NIHSS on arrival, serially reviewing vitals and in particu lar avoiding hypotension or excessive hypertension, obtaining emergent point of care labs, obtaining emergent radiologic imaging, and developing an overall plan of care. The patient will be moved to the NEICU to continue ICU level care. I agree with the assessment and plan as documented with the following addendum: Ms. Hansen is a 59 year old woman with past history of hypothyroidism who was la st well prior to bedtime last night, woke up at 6 am with symptoms of speech dis turbance. She presented to [facility] where symptoms resolved to near baseline, however CTA head/neck showed L M2 branch occlusions in two branches so she was initially transferred to for closer monitoring given vessel occlusion. When s he arrived, she had return of speech deficits. There was no weakness. Exam significant for mild expressive aphasia in loss of fluency, mild dysarthria , and did not know correct month. Otherwise intact facial strength, gaze, extrem ity strength, sensation, and coordination. Due to recurrent symptoms, CTP was done after she arrived on floor which showed relatively moderate area of mismatch in L temporal lobe. 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 She had infusion of IA tPA for L M3 clot with TICI 3 revascularization. Will be admitted to NEICU. 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 Plea se call with any questions. Kirsten Cox MD * Acute Stroke Response - Vipin Cabrera RN - 03/06/2020 1:35 PM CDT RN Stroke Activation Summary Date of Service: 03/06/2020 Domitila Hansen is a 59 y.o. female. : 1960 MRN#: [id number] Allergies: Patient has no allergy information on record. Patient Arrival: 1335 ASRT Arrival: 1245 Location of Response : [facility] 72 Page Received: 9384 Outside Hospital: [facility] Clinical Presentation: Aphasia, Dysarthria Total Stroke Scale Score: 3 Signs & Symptoms: Last Known Well Last Known Well - Date: 03/05/20 Last Known Well - Time: 2229(bed time yesterday ) Dysphagia screen: failed Assessment & Plan Summary: Patient has medical history of partial thyroidectomy and hysterectomy, no stroke history or risk factors. Per report patient went to bed normal around 10:30pm last night and woke up at 0700 confused and with speech difficulty. Dora ent went to OSH [facility] in [place], [place] where NIH was originally 2 for apha yuly/dysarthria but improved to 1 for slight expressive aphasia. CTA of head reve aled possible left M2 occlusion so patient was transferred to for stroke work up/possible intervention. Patient arrival at 1335 and was admitted to [id number]. NI H 3-4 for confusion, slight aphasia, and dysarthria. Dr. Cox notified of NIH 3-4 at this time. CTP/CTP ordered and completed, IR team at bedside to assess pa tient. Due to intermittent worsening of aphasia decision to go to IR at 1441 aft er discussing options with patient and family was called and updated. Groin punc ture at 1448. Radiology/Interventional Delay Decision to IR: No Delays: No Plan: IR for thrombectomy/possible IA TPA. Admit to ICU [id number] postop. Call Completion: 1359 RN handoff: Iker History of Present Illness No past medical history on file. No past surgical history on file. Social History Socioeconomic History Marital status: Not on file Spouse name: Not on file Number of children: Not on file Years of education: Not on file Highest education level: Not on file Occupational History Not on file Tobacco Use Smoking status: Not on file Substance and Sexual Activity Alcohol use: Not on file Drug use: Not on file Sexual activity: Not on file Other Topics Concern Not on file Social History Narrative Not on file Vipin Cabrera RN documented in this encounter Plan of Treatment Date/Time Name Type Priority Associated Diag noses 03/07/2020 1:32 PM CDT POC ANES US LOWER Imaging Routine EXTREMITY VENOUS (DVT) LEFT 03/07/2020 1:32 PM CDT POC ANES US LOWER Imaging Routine EXTREMITY VENOUS (DVT) RIGHT documented as of this encounter Procedures Comments Procedure Name Priority Date/Time Associated Diag nosis US DOPPLER VENOUS STAT 03/07/2020 BILATERAL 2:58 PM CDT ECG 12-LEAD Routine 03/07/2020 12:42 PM CDT 2D + DOPPLER ECHO W/ Routine 03/07/2020 CONTRAST 10:59 AM CDT HC CBC,AUTOMATED Routine 03/07/2020 4:08 AM CDT HC PHOSPHOROUS, SERUM Routine 03/07/2020 4:08 AM CDT HC MAGNESIUM Routine 03/07/2020 4:08 AM CDT HC HEMOGLOBIN A1C Add on 03/07/2020 4:08 AM CDT HC CALCIUM IONIZED Routine 03/07/2020 4:08 AM CDT HC Routine 03/07/2020 LIPID-5:CHOL/TRG/HDL/LDL+ 4:08 AM CDT VLDL BASIC METABOLIC PANEL Routine 03/07/2020 4:08 AM CDT HC BASIC METABOLIC PANEL Routine 03/07/2020 12:11 AM CDT HC MAGNESIUM Routine 03/07/2020 12:11 AM CDT HC CALCIUM IONIZED Routine 03/07/2020 12:11 AM CDT HC PHENCYCLIDINES; [...] CONTRAST Routine 03/06/2020 7:07 PM CDT HC CBC,AUTOMATED Routine 03/06/2020 5:25 PM CDT HC PHOSPHOROUS, SERUM Routine 03/06/2020 5:25 PM CDT HC MAGNESIUM Routine 03/06/2020 5:25 PM CDT HC CALCIUM IONIZED Routine 03/06/2020 5:25 PM CDT HC COMPREHENSIVE Routine 03/06/2020 METABOLIC PANEL 5:25 PM CDT IR ARTERIOGRAM NEURO Routine 03/06/2020 4:[address] BRAIN PERF Routine 03/06/2020 2:[address] HEAD WO CONTRAST Routine 03/06/2020 2:17 PM CDT ECG-SCAN 03/06/2020 12:00 AM CDT documented in this encounter Results * EVENT [...] CV ECHO PV [place] OTHER OUTSIDE PRODUCTION ENGINEER LAB FS 40.10 28 - 44 % [...] 34 OTHER OUTSIDE Index LAB Cardiology Siemens [id number] OTHER OUTSIDE Ultrasound LAB Machine Left Ventricle [...] mmHg No prior studies for comparison Performing Organization Address [facility] one Number OTHER OUTSIDE LAB * HEMOGLOBIN A1C (03/07/2020 4:08 AM CDT) Hemoglobin A1C 5.2 4.0 - 6.0 % [facility] MAIN LAB Comment: The ADA recommends that most patients with type 1 and type 2 diabetes maintain an A1c level <7%. Specimen Performing Organization Address [facility] one Number MAIN LAB [address] [place] [address] * IONIZED CALCIUM (03/07/2020 4:08 AM CDT) Ionized Calcium 1.12 1.0 - 1.3 MMOL/L [facility] MAIN LAB Specimen Blood Performing Organization Address [facility] one Number MAIN LAB [address] [place] [address] * PHOSPHORUS (03/07/2020 4:08 AM CDT) Phosphorus 2.5 2.0 - 4.5 MG/DL [facility] MAIN LAB Specimen Blood Performing Organization Address [facility] one Number MAIN LAB [address] [place] [address] * MAGNESIUM (03/07/2020 4:08 AM CDT) Magnesium 2.3 1.6 - 2.6 mg/dL [facility] MAIN LAB Specimen Blood Performing Organization Address [facility] one Number MAIN LAB [address] [place] [address] * BASIC METABOLIC PANEL (03/07/2020 4:08 AM [...] >60 >60 mL/min [facility] MAIN LAB Comment: [place] The eGFR is not validated f or use in drug dosing adjustments. Continue to use estimated creatinine clearance per dosing reference text. Please contact the Clinical Pharmacist for questions. eGFR >60 >60 mL/min MAIN LAB [facility] Comment: The eGFR is not validated for use in drug dosing adjustments. Continue to use estimated creatinine clearance per dosing reference text. Please contact the Clinical Pharmacist for questions. Specimen Blood Performing Organization Address [facility] one Number MAIN LAB [address] [place] [address] * CBC (03/07/2020 4:08 AM CDT) White Blood 6.2 4.5 - 11.0 K/UL [facility] MAIN LAB Cells RBC 4.03 4.0 - 5.0 M/UL [facility] MAIN [facility] Hemoglobin 12.9 12.0 - 15.0 GM/DL [facility] MAIN LAB Hematocrit 38.0 36 - 45 % [facility] MAIN [facility] MCV 94.3 80 - 100 FL [facility] MAIN [facility] MCH 32.0 26 - 34 PG [facility] MAIN [facility] MCHC 33.9 32.0 - 36.0 G/DL MAIN LAB RDW 12.9 11 - 15 % [facility] MAIN [facility] Platelet Count 159 150 - 400 K/UL [facility] MAIN LAB MPV 8.7 7 - 11 FL [facility] MAIN LAB Specimen Blood Performing Organization Address [facility] Ph one Number MAIN LAB [address] [place] [address] * LIPID PROFILE (03/07/2020 4:08 AM CDT) Cholesterol 173 <200 MG/DL [facility] MAIN LAB Triglycerides 74 <150 MG/DL [facility] MAIN LAB HDL 57 >40 MG/DL MAIN LAB LDL 105 (H) <100 mg/dL [facility] MAIN [facility] VLDL 15 MG/DL [facility] MAIN LAB Non HDL 116 MG/DL [facility] MAIN LAB Cholesterol Comment: Calculated non-HDL Cholesterol (non-HDL-C) indirectly measures LDL-C, Lp(a), IDL-C, and VLDL-C. It is a surrogate marker for Apoprotein B. Goal should be less than 130 mg/dL. Specimen Blood Performing Organization Address [facility] one Number MAIN LAB [address] [place] [address] * IONIZED CALCIUM (03/07/2020 12:11 AM CDT) Ionized Calcium 1.12 1.0 - 1.3 MMOL/L [facility] MAIN LAB Specimen Blood Performing Organization Address [facility] Ph one Number MAIN LAB [address] [place] [address] * MAGNESIUM (03/07/2020 12:11 AM CDT) Magnesium 2.5 1.6 - 2.6 mg/dL [facility] MAIN LAB Specimen Blood Performing Organization Address [facility] Ph one Number [facility] MAIN LAB [address] [place] [address] * POTASSIUM (03/07/2020 12:11 AM CDT) Potassium 4.8 3.5 - 5.1 MMOL/L [facility] MAIN LAB Specimen Blood Performing Organization Address [facility] Ph one Number [facility] [address] [place] [address] * PHENCYCLIDINES-URINE RANDOM (03/06/2020 8:28 PM CDT) Phencyclidine NEG NEG-NEG [facility] (PCP) Comment: RESULTS WERE OBTAINED BY IMMUNOASSAY AND ARE PRESUMPTIVE ONLY. POSITIVE INDICATES THE PRESENCE OF SUBSTANCE WITH CHARACTERISTICS SIMILAR TO DRUG-DRUG CLASS OR METABOLITE IN CONC. EQUAL TO OR EXCEEDING VALUES LISTED. PHENCYCLIDINE (PCP) 25 NG/ML Specimen Urine - Urine Performing [facility] Ph one Number [facility] [address] [place] [address] * OPIATES-URINE RANDOM (03/06/2020 8:28 PM CDT) Opiates-Urine NEG NEG-NEG [facility] Comment: RESULTS WERE OBTAINED BY IMMUNOASSAY AND ARE PRESUMPTIVE ONLY. POSITIVE INDICATES THE PRESENCE OF SUBSTANCE WITH CHARACTERISTICS SIMILAR TO DRUG-DRUG CLASS OR METABOLITE IN CONC. EQUAL TO OR EXCEEDING VALUES LISTED. OPIATES 2000 NG/ML Specimen Urine - Urine Performing [facility] one Number [facility] [address] [place] [address] * COCAINE-URINE RANDOM (03/06/2020 8:28 PM CDT) Cocaine-Urine NEG NEG-NEG [facility] Comment: RESULTS WERE OBTAINED BY IMMUNOASSAY AND ARE PRESUMPTIVE ONLY. POSITIVE INDICATES THE PRESENCE OF SUBSTANCE WITH CHARACTERISTICS SIMILAR TO DRUG-DRUG CLASS OR METABOLITE IN CONC. EQUAL TO OR EXCEEDING VALUES LISTED. COCAINE 300 NG/ML Specimen Urine - Urine Performing [facility] one Number [facility] [address] [place] [address] * CANNABINOIDS-URINE RANDOM (03/06/2020 8:28 PM CDT) THC NEG NEG-NEG MAIN LAB Comment: RESULTS WERE OBTAINED BY IMMUNOASSAY AND ARE PRESUMPTIVE ONLY. POSITIVE INDICATES THE PRESENCE OF SUBSTANCE WITH CHARACTERISTICS SIMILAR TO DRUG-DRUG CLASS OR METABOLITE IN CONC. EQUAL TO OR EXCEEDING VALUES LISTED. CANNABINOIDS 50 NG/ML Specimen Urine - Urine Performing [facility] Ph one Number [facility] [address] [place] [address] * BENZODIAZEPINES-URINE RANDOM (03/06/2020 8:28 PM CDT) Benzodiazepines POS (A) NEG-NEG MAIN LAB Comment: RESULTS WERE OBTAINED BY IMMUNOASSAY AND ARE PRESUMPTIVE ONLY. POSITIVE INDICATES THE PRESENCE OF SUBSTANCE WITH CHARACTERISTICS SIMILAR TO DRUG-DRUG CLASS OR METABOLITE IN CONC. EQUAL TO OR EXCEEDING VALUES LISTED. BENZODIAZEPINES 200 NG/ML Specimen Urine - Urine Performing Organization Address [facility] one Number MAIN LAB [address] [place] [address] * BARBITURATES-URINE RANDOM (03/06/2020 8:28 PM CDT) Barbiturates,Ur NEG NEG-NEG MAIN LAB ine Comment: RESULTS WERE OBTAINED BY IMMUNOASSAY AND ARE PRESUMPTIVE ONLY. POSITIVE INDICATES THE PRESENCE OF SUBSTANCE WITH CHARACTERISTICS SIMILAR TO DRUG-DRUG CLASS OR METABOLITE IN CONC. EQUAL TO OR EXCEEDING VALUES LISTED. BARBITURATES 200 NG/ML Specimen Urine - Urine Performing Organization Address [facility] one Number MAIN LAB [address] [place] [address] * AMPHETAMINES-URINE RANDOM (03/06/2020 8:28 PM CDT) Amphetamines NEG NEG-NEG MAIN LAB Comment: RESULTS WERE OBTAINED BY IMMUNOASSAY AND ARE PRESUMPTIVE ONLY. POSITIVE INDICATES THE PRESENCE OF SUBSTANCE WITH CHARACTERISTICS SIMILAR TO DRUG-DRUG CLASS OR METABOLITE IN CONC. EQUAL TO OR EXCEEDING VALUES LISTED. AMPHETAMINES 1000 NG/ML Specimen Urine - Urine Performing Organization Address [facility] one Number MAIN LAB [address] [place] [address] * MRI HEAD WO CONTRAST (03/06/2020 7:07 [...] IMPRESSION 1. Small acute or early subacute tool polisher ior left insular infarct (similar to prior [...] on 03/07/2020 7:13 AM. Performing Organization Address [facility] one Number [facility] RAD RESULTS * COMPREHENSIVE METABOLIC PANEL (03/06/2020 5:25 PM CDT) Pathologist [facility] Sodium 138 137 - 147 MMOL/L [facility] [...] >60 >60 mL/min [facility] MAIN LAB Comment: [place] The eGFR is not validated f or use in drug dosing adjustments. Continue to use estimated creatinine clearance per dosing reference text. Please contact the Clinical Pharmacist for questions. eGFR >60 >60 mL/min [facility] MAIN [facility] [place] Comment: The eGFR is not validated for use in drug dosing adjustments. Continue to use estimated creatinine clearance per dosing reference text. Please contact the Clinical Pharmacist for questions. Specimen Blood Performing Organization Address [facility] one Number [facility] MAIN [facility] [address] [place] [address] * IONIZED CALCIUM (03/06/2020 5:25 PM CDT) Ionized Calcium 0.92 (L) 1.0 - 1.3 MMOL/L [facility] MAIN [facility] Specimen Blood Performing Organization Address [facility] Ph one Number MAIN LAB [address] [place] [address] * PHOSPHORUS (03/06/2020 5:25 PM CDT) Phosphorus 3.6 2.0 - 4.5 MG/DL [facility] MAIN [facility] Specimen Blood Performing Organization Address [facility] one Number [facility] MAIN [facility] [address] [place] [address] * MAGNESIUM (03/06/2020 5:25 PM CDT) Magnesium 1.9 1.6 - 2.6 mg/dL [facility] MAIN [facility] Specimen Blood Performing Organization Address [facility] one Number [facility] MA[facility] [address] [place] [address] * CBC (03/06/2020 5:25 PM CDT) White Blood 6.3 4.5 - 11.0 K/UL [facility] MAIN LAB Cells RBC 4.16 4.0 - 5.0 M/UL [facility] MA[facility] Hemoglobin 13.2 12.0 - 15.0 GM/DL [facility] MAIN LAB Hematocrit 39.2 36 - 45 % [facility] MCV 94.2 80 - 100 FL [facility] MA[facility] MCH 31.8 26 - 34 PG [facility] MCHC 33.8 32.0 - 36.0 G/DL [facility] RDW 12.5 11 - 15 % [facility] Platelet Count 173 150 - 400 K/UL [facility] MAIN [facility] MPV 8.6 7 - 11 FL [facility] MAIN LAB Specimen Blood Performing Organization Address [facility] one Number [facility] MAIN [facility] [address] [place] [address] * IR ARTERIOGRAM NEURO (03/06/2020 4:10 PM [...] 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 I performed this procedure without the involvement [...] femoral artery angiogra m. Referring Physician - Kirsten Cox MD Neurointerventionalist: Cindy palmer MD Contrast - 150 cc [id number] Total mGy - 1988 Anesthesia: Monitored anesthesia [...] Under fluoroscopic and roadmap guidance a 5 Marshallese 125 cm Vert catheter over a 180 cm 0.035 [place] wire over the aortic arch and into the left internal carotid artery. Images were obtained in bipla ne projections of the left anterior intracranial circulation. LICA Interpretation The angiogram demonstrated abrupt occlu tj of an M3 inferior division middle cerebral artery branch. Pre-intervention modified TICI score wa s 0. Under fluoroscopic and roadmap guidance the sheath and catheter were changed for an 8 Marshallese 25 cm sheath and a 6 Marshallese 90 cm Neuron Max catheter which was [...] 3. After reviewing the final images, a rig ht common femoral artery angiogram was performed. The angiogram demonstrated the access site well above the bifurcation with no branching vessels a rising from the site; therefore, hemostasis was achieved using an 8 Fren ch Angio-Seal closure device followed by manual pressure for 5 minutes. The patient was transported to the [facility] in a stable hemodynamic condition. Complications [...] femoral artery angiogram . Referring Physician - Kirsten Cox MD Neurointerventionalist: Cindy Poe MD Contrast - 150 cc [id number] Total mGy - 1988 Anesthesia: Monitored anesthesia [...] Under fluoroscopic and roadmap guidance a 5 Marshallese 125 cm Vert catheter over a 180 cm 0.035 [place] wire over the aortic arch and into the left internal carotid artery. Images were obtained in biplane projections of the left anterior intracranial circulation. LICA Interpretation The angiogram demonstrated abrupt occlusion of an M3 inferior division middle cerebral artery branch. Pre-intervention modified TICI score was 0. 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 I performed this procedure without the involvement [...] (similar to CTA head from earlier the ). The driscoll-white matter interfaces are otherwise maintained. [...] (similar to CTA head from earlier the ). The driscoll-white matter interfaces are otherwise maintained. [...] Ph one Number [facility] RAD RESULTS * ECG-SCAN (03/06/2020 12:00 AM CDT) Narrative Performed At This result has an attachment that is n ot available. Ordered by an unspecified provider. documented in this encounter Visit Diagnoses Diagnosis Acute ischemic stroke (HCC) Unspecified cerebral artery occlusion w ith cerebral infarction documented in this encounter Administered Medications Action Date Dose Rate Site Medication Order MAR Action acetaminophen (TYLENOL) rectal suppository 650 mg 650 mg, Rectal, EVERY 4 HOURS PRN, Starting Thu03/06/20 at 1354, Until Thu03/07/20 at 1841, Pain non-opioid: may b e used alone or in combination with opioi d analgesia, Temp > 38.5 C, Acetaminophen not to exceed 4g per 24 hours from all sources., 03/07/2020 12:14 AM CDT 650 mg acetaminophen (TYLENOL) tablet 650 mg Given 650 mg, Oral, EVERY 4 HOURS PRN, Starting Thu03/06/20 at 1354, Until Thu03/07/20 at 1841, Pain non-opioid: may b e used alone or in combination with opioi d analgesia, Temp > 38.5 C, Acetaminophen not to exceed 4g per 24 hours from all sources., 03/06/2020 3:46 PM CDT 6 mg alteplase (CATHFLO ACTIVASE) injection Given INTRA-PROCEDURE MED, Starting Thu03/06/20 at 1525, Until Thu03/06/20 at 1546 6 mg Given 03/06/2020 3:25 PM CDT aspirin EC tablet 81 mg 81 mg, Oral, DAILY, First dose on Thu03/07/20 at 2100, Until Discontinued 03/07/2020 11:04 AM CDT 20 mg atorvastatin (LIPITOR) tablet 20 mg Given 20 mg, Oral, DAILY, First dose on Thu03/07/20 at 1045, Until Discontinued 03/06/2020 7:47 PM CDT 1 g 110 mL/hr calcium gluconate 1 g in sodium chloride Given - New 0.9% (NS) 110 mL IVPB (MB+) Bag 1 g, Intravenous, 110 mL, Administer over 60 Minutes, NEEDED (BOW MAKER CUSTOM FRO M RX), Starting Thu03/06/20 at 1850, Unti l Thu03/07/20 at 184, Other..., For calcium replacement, see admin instructions, For ionized calcium < 1.0 mg/dl, administer calcium gluconate 1g IVPB. Recheck ionized calcium level 4 hours after completion of infusion. Notify physician if ionized calcium < 1.0 mg/dL. Each 1 gm delivers 4.6 mEq calcium, 03/06/2020 8:31 PM CDT 100 mg docusate (COLACE) capsule 100 mg Given 100 mg, Oral, TWICE DAILY, First dose o n Thu03/06/20 at 2100, Until Discontinued , Hold for loose stools, hydrALAZINE (APRESOLINE) injection 10 m g 10 mg, Intravenous, EVERY 6 HOURS PRN, Starting Thu03/06/20 at 1647, Until Thu03/07/20 at 184, Systolic Blood Pressure..., for SBP >160, After dose, check BP every 5 minutes x3, then every 15 minutes x2 until desired BP reached. Notify provider if blood pressure is no t within desired range after above monitoring time. , 03/06/2020 4:15 PM CDT 150 mL iohexoL (OMNIPAQUE-300) 300 mg/mL Given injection 150 mL 150 mL, Intra-arterial, ONCE, 1 dose, Thu03/06/20 at 1615, NOTE: This is a HIGH ALERT Medication., 03/06/2020 2:30 PM CDT 40 mL iohexoL (OMNIPAQUE-350) 350 mg/mL Given injection 40 mL 40 mL, Intravenous, ONCE, 1 dose, Thu03/06/20 at 1430, NOTE: This is a HIGH ALERT Medication., labetaloL (NORMODYNE) injection 10 mg 10 mg, Intravenous, EVERY 1 HOUR PRN, Starting Thu03/06/20 at 1647, Until Thu03/07/20 at 1841, Systolic Blood Pressure..., for SBP >160, Hold for heart rate < 60 bpm, 03/07/2020 6:12 AM CDT 100 mcg levothyroxine (SYNTHROID) tablet 100 mcg Given 100 mcg, Oral, DAILY, First dose on Thu03/07/20 at 0700, Until Discontinued, Give 1 hour before a meal. If patient is receiving tube feedings, hold tube feed 1hr before and 1hr after dose., 03/06/2020 9:37 PM CDT 1 g 100 mL/hr magnesium sulfate 1 g/D5W 100 mL IVPB Given - New 1 g, Intravenous, 100 mL, Administer Bag over 1 Hours, NEEDED, Starting Thu03/06/20 at 1849, Until Thu03/07/20 at 1841, Other..., magnesium replacement (see Admin Instructions), If urine output < 30 mL/hr or SCr >2 mg/dL, [facility] k with physician prior to giving magnesiu m replacement. - For Serum Magnesium > 2.1 mg/dL, No replacement necessary. - For Serum Magnesium 1.8 - 2.0 mg/dL, give Magnesium Sulfate 2 grams IV over 2 hours. - For Serum Magnesium 1.6 - 1.7 mg/dL, give Magnesium Sulfate 3 grams I V over 3 hours. - For Serum Magnesium 1. 3 - 1.5 mg/dL, give Magnesium Sulfate 4 grams IV over 4 hours. - For Serum Magnesium < = 1.2 mg/dL, give Magnesium Sulfate 6 grams IV over 6 hours AND notify physician. Recheck serum magnesium level 2 hours after completio n of appropriate replacement dose. Repeat this standing order x 1. Notify physician if serum magnesium < 2.1 mg/d L after two replacements. Infuse each 1gm Magnesium sulfate over 1 hour. Each 1 gm delivers 8.1 mEq Magnesium., 1 g 100 mL/hr Given - New Bag 03/06/2020 8:31 PM CDT 03/07/2020 6:54 AM CDT 4 mg ondansetron (ZOFRAN) injection 4 mg Given 4 mg, Intravenous, EVERY 6 HOURS PRN, Starting Thu03/06/20 at 2100, Until Thu03/07/20 at 1841, Nausea/Vomiting Injectable 4 mg Given 03/06/2020 5:19 PM CDT ONDANSETRON HCL (PF) 4 MG/2 ML IJ SOLN (Cabinet Override) NOW, 1 dose, Thu03/06/20 at 1730, Created by cabinet override, Created by cabinet override, 03/07/2020 11:00 AM CDT 2 Diluted mL perflutren lipid microspheres (DEFINITY) Given injection 1-20 Diluted mL 1-20 Diluted mL, Intravenous, ONCE PRN, 1 dose, Starting Thu03/07/20 at 1044, Until Thu03/07/20 at 1100, For Procedure, A judge may only administer Definity through a saline lock. If IV is in use or a port, PICC, or central line is being used a nurse must administer. NOTE: This is a HIGH ALERT Medication., MAC Procedure Area Only - Medications potassium chloride oral solution 40-60 mEq 40-60 mEq, Per NG tube, NEEDED, Starting Thu03/06/20 at 1849, Until Thu03/07/20 at 184, Other..., For potassiu m replacement, See admin instructions, If urine output < 30 mL/hr or SCr >2 mg/dL , check with physician prior to giving K+ replacement. - K 3-4 mmol/L, administe r KCl 40 mEq PO/NG x1 dose - K 2.5-2.9 mmol/L, administer KCl 60 mEq PO/NG x1 dose AND notify physician for additiona l dosing - K < 2.5 mmol/L notify physicia n for dosing Recheck serum potassium two hours after completion of appropriate replacement dose. Repeat this standing order x 2. Notify physician if serum potassium < 3.3 mmol/L after three replacements. Do NOT break or crush tablet, 03/06/2020 8:31 PM CDT 40 mEq potassium chloride SR (K-DUR) tablet Given 40-60 mEq 40-60 mEq, Oral, NEEDED, Starting 03/06/20 at 1849, Until Thu03/07/20 at 1841, Other..., For potassium replacement, See admin instructions, If urine output < 30 mL/hr or SCr >2 mg/dL , check with physician prior to giving K+ replacement. - K 3-4 mmol/L, administe r KCl 40 mEq PO/NG x1 dose - K 2.5-2.9 mmol/L, administer KCl 60 mEq PO/NG x1 dose AND notify physician for additiona l dosing - K < 2.5 mmol/L notify physicia n for dosing Recheck serum potassium two hours after completion of appropriate replacement dose. Repeat this standing order x 2. Notify physician if serum potassium < 3.3 mmol/L after three replacements. Do NOT break or crush tablet, 03/07/2020 2:29 PM CDT 10 mg prochlorperazine (COMPAZINE) injection Given 10 mg 10 mg, Intravenous, EVERY 6 HOURS PRN, Starting Thu03/07/20 at 1249, Until Thu03/07/20 at 1841, Nausea/Vomiting Injectable, PROTECT FROM LIGHT -- May b e given undiluted, or each 5mg may be diluted with 9 mL of NS to facilitate titration., 03/06/2020 8:31 PM CDT 1 tablet senna (SENOKOT) tablet 1 tablet Given 1 tablet, Oral, TWICE DAILY, First dose on Thu03/06/20 at 2100, Until Discontinued, Hold for loose stools, 03/06/2020 2:30 PM CDT 50 mL sodium chloride PF 0.9% injection 50 mL Given 50 mL, Intravenous, ONCE, 1 dose, Thu03/06/20 at 1430, Intra-procedure (IR) sodium phosphate 8 mmol in dextrose 5% (D5W) 250 mL IVPB 8 mmol, Intravenous, 250 mL, Administer over 4 Hours, NEEDED (BOW MAKER CUSTOM FROM RX), Starting Thu03/06/20 at 1850, Unti l Thu03/07/20 at 1841, Other..., phosphat e replacement (see Admin Insturctions), I f urine output < 30 mL/hr, SCr >2 mg/dL, check with physician prior to giving sodium phosphate replacement. - For serum phosphate < 2.0 mg/dL, give sodiu m phosphate 8 mMol IVPB x 1 Dose to run over 4 hours. - Recheck serum phosphat e level 4 hours after completion of infusion.Notify physician if serum phosphate < 2.0 mg/dL., traZODone (DESYREL) tablet 100 mg 100 mg, Oral, AT BEDTIME PRN, Starting Thu03/06/20 at 1627, Until Thu03/07/20 at 184, Insomnia documented in this encounter
--- OUTSIDE RECORDS SUMMARY | 2020-05-27 21:06 | XMS REPORT | Encounter Summary ---
Author Author [facility] Organization [facility] Address Unknown Phone Unavailable Care Team Providers Care Staff Nurse Name Role Phone Divina Kovacs MD PCP Encounter Details Care Team Description Date Type Department Yudi Martinez MD [address] [place], [place] [id number] 03/07/2020 [facility] [address] [facility] [address] [place] [address] Social History Date Tobacco Use Types Packs/Day [...] LOWER Imaging Routine EXTREMITY VENOUS (DVT) LEFT documented as of this encounter Visit Diagnoses Not on filedocumented in this encounter
--- OUTSIDE RECORDS SUMMARY | 2020-05-27 21:06 | XMS REPORT | Encounter Summary ---
Author Author [facility] Organization [facility] Address Unknown Phone Unavailable Care Team Providers Care Supervisor Customer Records Division Name Role Phone Divina Kovacs MD PCP Reason for Visit * Auth/Cert Referred By Contact Referred To Contact Status Reason Specialty Diagnoses / Procedures Diagnoses Ischemic stroke (HCC) CVA Encounter Details Care Team Description Date Type Department Nicki Villanueva MD [id number] [place], [place] [id number] 03/06/2020 Anesthesia [facility] [address] [place], [place] [phone] Anesthesia Record Responsible Anesthesiologist Anesthesia Start Time Anesthesi a Stop Time Procedure Name ANESTHESIA PRE-EVAL No events on file. Meds * No agents on file. * No blood administrations on file. Removal Type Details Placement Puncture 03/06/20; 1559; Right; Femoral 0 1559 by Ramesh Gross RN ([place]) documented in this encounter Social History Date [...] of this encounter OR Notes * Anesthesia Preprocedure Evaluation - Nicki Villanueva MD - 03/06/2020 2:28 PM CDT Anesthesia Pre-Procedure Evaluation Name: Domitila Hansen : 1960 Age: 59 y.o. Sex : female Procedure Info: Procedure Information Date: 03/06/20 Procedure: ANESTHESIA PRE-EVAL Physical Assessment Vital Signs (last filed in [...] Neuro/Psych CVA (wake up stroke today from [facility]; agrees to proceed ), residual symptoms Musculoskeletal [...] with patient. Plan discussed with: anesthesiologist and CUSTODIAL AIDE. documented in this encounter Plan of Treatment Not on filedocumented as of this encounter Visit Diagnoses Not on filedocumented in this encounter
--- OUTSIDE RECORDS SUMMARY | 2020-05-27 21:06 | XMS REPORT | Encounter Summary ---
Author Author [facility] Organization [facility] Address Unknown Phone Unavailable Care Team Providers Care Private Secretary Name Role Phone Divina Kovacs MD PCP Encounter Details Care Team Description Date Type Department 03/06/2020 [facility] [address] [address] Social History Date Tobacco Use Types Packs/Day [...] Procedure Name Priority Date/Time Associated Diag nosis CTA HEAD EXTERNAL IMAGING Routine 03/06/2020 11:55 AM CDT documented in this encounter Results * CTA HEAD EXTERNAL IMAGING (03/06/2020 11:55 AM CDT) Specimen Narrative Performed At This order has been auto finalized and does not contain a result. documented in this encounter Visit Diagnoses Not on filedocumented in this encounter
--- OUTSIDE RECORDS SUMMARY | 2020-05-27 21:06 | XMS REPORT | Encounter Summary ---
Author Author [facility] Organization [facility] Address Unknown Phone Unavailable Care Team Providers Care Record Press Tender Name Role Phone Divina Kovacs MD PCP Encounter Details Care Team Description Date Type Department 04/09/2020 Travel Social History Date Tobacco Use Types [...] have you been in contact with Estela ble to assess someone who was confirmed or [...]
--- OUTSIDE RECORDS SUMMARY | 2020-05-27 21:07 | XMS REPORT | Encounter Summary ---
Author Author [facility] Organization [facility] Address Unknown Phone Unavailable Care Team Providers Care Barrel Builder Name Role Phone Divina Kovacs PCP Reason [...] Description Date Type Department Divina Kovacs MD [address] [place] [id number] Health care maintenance 11/14/[address] [address] Social History Date Tobacco Use Types Packs/Day [...] Routine 11/14/2017 Health care aintenance 9:11 AM DONOR SERVICES COORDINATOR documented in this encounter Results * CV CT Cardioscan (11/14/2017 9:11 AM DONOR SERVICES COORDINATOR) Calcium Score 10.3 [facility] Specimen Narrative Performed At [facility] NAME: DOMITILA HANSEN : [id number] GENDER: f MRN: LETTY NUM: [id number] TEST: Coronary Calcium Score TEST DATE: TEST LOCATION: [facility] INPATIENT: INDICATION FOR TEST: Positive [...] artery, a calcium score was computed using [employer] volumetric cardiac scoring software. Such deposits are [...] for further information. Golden Tsang MD [address] [facility], [address] [place] [address] PROVIDER APPROVAL DATETIME: 12:54:48.0 Procedure Note Interface, External Ris In - 11/16/2017 1:01 PM DONOR SERVICES COORDINATOR NAME: DOMITILA HANSEN : [id number] GENDER: f MRN: LETTY NUM: [id number] TEST: Coronary Calcium Score TEST DATE: TEST LOCATION: [facility] INPATIENT: INDICATION FOR TEST: Positive [...] for further information. Golden Tsang MD [address] [facility], [address] [place] [address] PROVIDER APPROVAL DATETIME: 2017-11-16 12:54:48.0 Performing Organization Address City/State/Zipcode Ph one Number [facility] documented in this encounter Visit Diagnoses Diagnosis Health care maintenance documented in this encounter
--- OUTSIDE RECORDS SUMMARY | 2020-05-27 21:07 | XMS REPORT | Encounter Summary ---
Author Author [facility] Organization [facility] Address Unknown Phone Unavailable Care Team Providers Care Charge Histotechnologist Name Role Phone Divina Kovacs PCP Reason for Referral * MRI/CAT/PET Scan (Routine) Referred By Contact Referred To Contact Status Reason Specialty Diagnoses / Procedures No, Ordering D, DO Closed Diagnoses Health care maintenance P rocedures CV CT Cardioscan Encounter Details Care Team Description Date Type Department No, Ordering D, DO [phone] Health care maintenance (Primary Dx) 11/12/2017 [facility] Orders [address] [place] [address] Social History Date Tobacco Use Types Packs/Day [...] * CV CT Cardioscan (11/14/2017 9:11 AM ELECTRONIC TECHNICIAN) Calcium Score 10.3 [facility] Specimen Narrative Performed At [facility] NAME: DOMITILA HANSEN : [id number] GENDER: f MRN: ACCOUNT NUM: [id number] TEST: Coronary Calcium Score TEST DATE: TEST LOCATION: [facility] INPATIENT: INDICATION FOR TEST: Positive Family [...] artery, a calcium score was computed using [employer] volumetric cardiac scoring software. Such deposits are [...] for further information. Golden Tsang MD [address] [facility], [address] [place] [address] PROVIDER APPROVAL DATETIME: 12:54:48.0 Procedure Note Interface, External Ris In - 11/16/2017 1:01 PM ELECTRONIC TECHNICIAN NAME: DOMITILA HANSEN : [id number] GENDER: f MRN: ACCOUNT NUM: [id number] TEST: Coronary Calcium Score TEST DATE: TEST LOCATION: [facility] INPATIENT: INDICATION FOR TEST: Positive Family [...] for further information. Golden Tsang MD [address] [facility], [address] [place] [address] PROVIDER APPROVAL DATETIME: 2017-11-16 12:54:48.0 Performing Organization Address City/State/Zipcode Ph one Number [facility] documented in this encounter Visit Diagnoses Diagnosis Health care maintenance documented in this encounter
[2020-05-27] MEDS ORDERED: CEPH-507 PO (21:18)
[2020-05-27] MEDS ORDERED: cefTRIAXone 1,000 MG/2.86 ml vial (IM ONLY) ONE (21:21)
[2020-05-27] MEDS ORDERED: LIDOCAINE 1% INJ 20 ML 20 ML VIAL ONE (21:21)
[2020-05-27] MEDS ORDERED: LIDOCAINE 1% INJ 20 ML 20 ML VIAL INJ ONE (21:30)
--- NOTE | 2020-05-27 22:06 | Diagnostic Imaging Report ---
INDICATION: Injury. EXAMINATION: Right forearm. AP and lateral views were obtained. COMPARISON: There is no prior study available for comparison. FINDINGS: Reportedly, the patient has suffered a wound from a piece of barbed wire. There is in fact a radiopaque density resembling a barbed wire segment along the medial aspect of the distal 3rd of the ulna. A portion of this radiopaque fragment appears to be embedded within the ulna, itself. There is no fracture visualized. There is no acute abnormality identified otherwise. 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 IMPRESSION: There is a short segment of barbed wire embedded in the medial aspect of the distal 3rd of the ulna. There is no acute bony abnormality noted otherwise. Dictated by: Dictated on workstation # [id number]
[2020-05-28] MEDS ORDERED: cefTRIAXone 1,000 MG/2.86 ml vial (IM ONLY) IM SCH (09:00)
== END 2020-05-27 21:34 | disposition home or self-care (01) ==
LOC: EDUNIT# 20:36 → ER FS 20:40
DX: S51.821A Laceration with foreign body of right forearm, initial encounter (principal); E89.0 Postprocedural hypothyroidism; F41.9 Anxiety disorder, unspecified; Z23 Encounter for immunization; Z79.82 Long term (current) use of aspirin; Z86.73 Personal history of transient ischemic attack (TIA), and cerebral infarction without residual deficits; Z82.49 Family history of ischemic heart disease and other diseases of the circulatory system; Z79.890 Hormone replacement therapy; W20.8XXA Other cause of strike by thrown, projected or falling object, initial encounter
CPT/HCPCS: 12001; 73090; 90715

== ENCOUNTER → 2020-08-30 | Outpatient (CLI) | payer BC ==
[~2020-08-30] MED LIST changes: +CEPH-507 PO; -CETI10TA21 PO; +CETI10TA49 PO
--- NOTE | 2020-08-31 11:01 | Diagnostic Imaging Report ---
INDICATION: Routine screening. COMPARISON is made with prior mammograms of 02/19/2018 and 05/13/2016. 2-D and 3-D bilateral screening mammography was performed with CAD. Both breasts are heterogeneously dense, limiting the sensitivity of mammography. Cardiac monitoring device overlies the medial left breast. No mass or malignant appearing microcalcifications are seen. Axillae are unremarkable. IMPRESSION: BI-RADS Category 1 No mammographic features suspicious for malignancy are identified. ACR BI-RADS Category 1: Negative. Result letter will be mailed to the patient. Note: At least 10% of breast cancer is not imaged by mammography. Dictated by: Dictated on workstation # [id number]
== END ==
LOC: RAD 13:57
PROVIDERS: ATTEND Pediatrics
DX: Z12.31 Encounter for screening mammogram for malignant neoplasm of breast (principal)
CPT/HCPCS: 77063; 77067

== ENCOUNTER 2021-09-06 12:07 | Inpatient (IN) | payer BC ==
[~2021-09-06] VITALS: Ht 162.6 cm; Wt 59.8 kg
[2021-09-06 12:27] LABS: BASOPHILS # (AUTO) 0.1 10^3/uL (0.0-0.1); BASOPHILS % (AUTO) 1 % (0-10); EOSINOPHILS # (AUTO) 0.1 10^3/uL (0.0-0.3); EOSINOPHILS % (AUTO) 2 % (0-10); HEMATOCRIT 45 % (35-52); HEMOGLOBIN 14.9 g/dL (11.5-16.0); LYMPHOCYTES # (AUTO) 2.2 10^3/uL (1.0-4.0); LYMPHOCYTES % (AUTO) 37 % (12-44); MEAN CORPUSCULAR HEMOGLOBIN 32 pg (25-34); MEAN CORPUSCULAR HGB CONC 33 g/dL (32-36); MEAN CORPUSCULAR VOLUME 95 fL (80-99); MEAN PLATELET VOLUME 10.2 fL (9.0-12.2); MONOCYTES # (AUTO) 0.3 10^3/uL (0.0-1.0); MONOCYTES % (AUTO) 6 % (0-12); NEUTROPHILS # (AUTO) 3.4 10^3/uL (1.8-7.8); NEUTROPHILS % (AUTO) 55 % (42-75); PLATELET COUNT 224 10^3/uL (130-400); WHITE BLOOD COUNT 6.1 10^3/uL (4.3-11.0)
--- NOTE | 2021-09-06 12:27 | ED Neurological Problem ---
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 She had a similar symptoms like this on Thursday, 5 days prior which spontaneously resolved after a few hours so she did not think anything of it are she got any help. She has no history of stroke, TIA, coronary disease, atrial fibrillation. She says she has had no problems doing her laundry this morning walking talking, facial droop, numbness or weakness. Now her only symptom is difficulty thinking and coming up with the words that she wants. She denies drinking smoking or recreational drugs. She takes t hyroid replacement medication and a medication to help her sleep but denies history of hypertension, hyperlipidemia, smoking, diabetes. No clinically relevant familial history she went to the walk-in clinic at [facility] in [place] today and they told her she needed to come to the ER because they were afraid she might be having a stroke. She says they directed her to come down here rather than go to the ER in [place]. Last known well time was 0800. Allergies and Home Medications Allergies Coded Allergies: No Known Drug Allergies (Verified , 05/09/20) Patient Home Medication List Home Medication List Reviewed: Yes Aspirin (Aspir 81) 81 Mg Tablet.dr, 81 MG PO DAILY, (Reported) Entered as Reported by: ANGELICA SO on 05/09/20 1045 Atorvastatin Calcium (Atorvastatin Calcium) 20 Mg Tablet, 20 MG PO DAILY, (Reported) Entered as Reported by: ANGELICA SO on 05/09/20 1045 Last Action: Reviewed Cephalexin (Keflex) 500 Mg Capsule, 500 MG PO BID Prescribed by: VIRAJ YUN on 05/27/202117 Levothyroxine Sodium (Levothyroxine Sodium) 75 Mcg Tablet, 75 MCG PO DAILY, (Reported) Entered as Reported by: BRENT DAIGLE on 04/30/16 1149 Last Action: Reviewed Trazodone HCl (Trazodone HCl) 50 Mg Tablet, 100 MG PO HS, (Reported) Entered as Reported by: BRENT DAIGLE on 04/30/16 1144 Last Action: Reviewed Review of Systems Review of Systems Constitutional: No chills, No fever, No malaise Eyes: Denies Blindness, Denies Blurred Vision Ears, Nose, Mouth, Throat: denies ear pain, denies ear discharge Respiratory: No cough, No phlegm, No short of breath Cardiovascular: No chest pain, No edema Gastrointestinal: No abdominal pain, No nausea, No vomiting Genitourinary: No discharge, No dysuria Musculoskeletal: No back pain, No joint pain Psychiatric/Neurological: Denies Anxiety, Denies Depressed, Denies Emotional Problems All Other Systems Reviewed Negative Unless Noted: Yes Past Yfonzar-Clasir-Ysemoh Hx Patient Social History Tobacco Use?: No Use of E-Cig and/or Vaping dev: No Substance use?: No Alcohol Use?: No Immunizations Up To Date Tetanus Booster (TDap): Unknown Seasonal Allergies Seasonal Allergies: Yes Past Medical History Surgeries: Yes (bladder sling, partial thyroidectomy, colonoscopy) Bladder Surgery, Hysterectomy, Thyroidectomy Respiratory: No Cardiac: No Neurological: Yes Stroke Reproductive Disorders: Yes MINE PATROL History: Hysterectomy Sexually Transmitted Disease: No HIV/AIDS: No Genitourinary: No Gastrointestinal: Yes Chronic Constipation Musculoskeletal: No Endocrine: Yes (PARTIAL THYROIDECTOMY FOR BENIGN DISEASE) Hypothyroidsim HEENT: No Cancer: No Psychosocial: Yes Anxiety Integumentary: No Blood Disorders: No Family Medical History Cardiovascular disease 19 MOTHER G8 BROTHER Completed stroke 19 MOTHER Diabetes mellitus 19 FATHER G8 SISTER Hypertension 19 MOTHER G8 BROTHER Myocardial infarction 19 MOTHER Thyroid disease G8 SISTER Physical Exam Vital Signs Vital Signs - First Documented 09/06/21 12:09 Temp 36.1 Pulse 83 Resp 18 B/P (MAP) 145/83 (103) Pulse Ox 98 O2 Delivery Room Air Capillary Refill : Height, Weight, BMI Height: 5'4.00" Weight: 142lbs. 0.0oz. 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, alert, normal mood/affect, oriented x 3 Crainal Nerves: normal hearing, PERRL (Negative for nystagmus on lateral gaze.), abnormal speech (Dysarthria and word searching) Coordination/Gait: normal finger to nose, normal gait Motor/Sensory: no sensory deficit, no pronator drift Skin: normal color, warm/dry Stroke Onset of Symptoms Date of Onset of Symptoms: Sep 06, 2021 Time of Symptom Onset: 08:00 Onset of Symptoms: Yes Symptoms onset unknown: No NIH Stroke Scale Assessment Select: Initial Level of Consciousness: 0=Alert (0), Level of Consciousness- Questions: 0=Answers both month/age (0), LOC Commands: 0=Performs both tasks (0), Gaze: Normal (0), Visual Duran: 0=No visual loss (0), Facial Movement (Facial Paresis): 0=Normal symmetrical mnt (0), Motor Function-Arms Right: 0=No drift (0), Motor Function-Arms Left: 0=No drift (0), Motor Function-Legs Right: 0=No drift (0), Motor Function-Legs Left: 0=No drift (0), Limb Ataxia: 0=Absent (0), Sensory: 0=Normal:no loss (0), Best Language: 1=Mild to moderat aphasia (1), Dysarthria: 1=Mild to moderate loss (1), Extinction & Inattention: 0=No abnormality (0), Total: 2 Stroke Thrombolytic Exclusion Age 18 or Over: Yes Acute intenal hemorrhage: No History of CVA: No Uncontrolled Coagulation Defec: No Intracranial Hemorrhage: No Severe Hypertension: No GI or Bleed: No Subarachnoid Hemorrhage: No Intracranial Neoplasm/Aneurysm: No Oral Anticoagulants: No Surgery or Trauma: No Puncture of Non-Compressible V: No Recent CPR: No Diabetic Hemorrhagic Retinopat: No Organ Biopsy: No Recent Obstetric Delivery: No Glucose: No (90 mg/dL) Significant Hepatic Dysfunctio: No NIH Stoke Scale >22: No Bacterial Endocarditis: No Pericarditis: No Improving Symptoms: No Platelets: No TPA Contraindication: No Procedures/Interventions Suture Size: 4-0 F5-2 Progress/Results/Core Measures Results/Orders Lab Results Laboratory Tests Test 09/06/21 12:13 09/06/21 14:27 Range/Units White Blood Count 6.1 4.3-11.0 10^3/uL Red Blood Count 4.73 3.80-5.11 10^6/uL Hemoglobin 14.9 11.5-16.0 g/dL Hematocrit 45 35-52 % Mean Corpuscular Volume 95 80-99 fL Mean Corpuscular Hemoglobin 32 25-34 pg Mean Corpuscular Hemoglobin Concent 33 32-36 g/dL Red Cell Distribution Width 12.5 10.0-14.5 % Platelet Count 224 130-400 10^3/uL Mean Platelet Volume 10.2 9.0-12.2 fL Immature Granulocyte % (Auto) 0 % Neutrophils (%) (Auto) 55 42-75 % Lymphocytes (%) (Auto) 37 12-44 % Monocytes (%) (Auto) 6 0-12 % Eosinophils (%) (Auto) 2 0-10 % Basophils (%) (Auto) 1 0-10 % Neutrophils # (Auto) 3.4 1.8-7.8 10^3/uL Lymphocytes # (Auto) 2.2 1.0-4.0 10^3/uL Monocytes # (Auto) 0.3 0.0-1.0 10^3/uL Eosinophils # (Auto) 0.1 0.0-0.3 10^3/uL Basophils # (Auto) 0.1 0.0-0.1 10^3/uL Immature Granulocyte # (Auto) 0.0 0.0-0.1 10^3/uL Prothrombin Time 13.2 12.2-14.7 SEC INR Comment 1.0 0.8-1.4 Activated Partial Thromboplast Time 25 24-35 SEC D-Dimer 0.51 H 0.00-0.49 UG/ML Sodium Level 140 135-145 MMOL/L Potassium Level 3.8 3.6-5.0 MMOL/L Chloride Level 105 98-107 MMOL/L Carbon Dioxide Level 25 21-32 MMOL/L Anion Gap 10 5-14 MMOL/L Blood Urea Nitrogen 13 7-18 MG/DL Creatinine 0.77 0.60-1.30 MG/DL Estimat Glomerular Filtration Rate 76 BUN/Creatinine Ratio 17 Glucose Level 98 70-105 MG/DL Glucometer 90 70-110 MG/DL Calcium Level 9.1 8.5-10.1 MG/DL Corrected Calcium 8.8 8.5-10.1 MG/DL Total Bilirubin 0.5 0.1-1.0 MG/DL Aspartate Amino Transf (AST/SGOT) 16 5-34 U/L Alanine Aminotransferase (ALT/SGPT) 13 0-55 U/L Alkaline Phosphatase 112 40-136 U/L Troponin I < 0.028 <0.028 NG/ML Total Protein 7.3 6.4-8.2 GM/DL Albumin 4.4 3.2-4.5 GM/DL Urine Color YELLOW Urine Clarity CLEAR Urine pH 7.5 5-9 Urine Specific [place] 1.010 L 1.016-1.022 Urine Protein NEGATIVE NEGATIVE Urine Glucose (UA) NEGATIVE NEGATIVE Urine Ketones NEGATIVE NEGATIVE Urine Nitrite NEGATIVE NEGATIVE Urine Bilirubin NEGATIVE NEGATIVE Urine Urobilinogen 0.2 < = 1.0 MG/DL Urine Leukocyte Esterase TRACE H NEGATIVE Urine RBC (Auto) NEGATIVE NEGATIVE Urine RBC NONE /HPF Urine WBC 2-5 /HPF Urine Squamous Epithelial Cells 0-2 /HPF Urine Crystals NONE /LPF Urine Bacteria NEGATIVE /HPF Urine Casts NONE /LPF Urine Mucus NEGATIVE /LPF Urine Culture Indicated NO My Orders Orders - LIBORIO SMITH Code/Resuscitation (09/06/21 12:19) Cbc With Automated Diff (09/06/21 12:19) Protime With Inr (09/06/21 12:19) Partial Thromboplastin Time (09/06/21 12:19) Comprehensive Metabolic Panel (09/06/21 12:19) Fibrin Degradation Products (09/06/21 12:19) Troponin I (09/06/21 12:19) Ua Culture If Indicated (09/06/21 12:19) Chest 1 View, Ap/Pa Only (09/06/21 12:19) Ekg Tracing (09/06/21 12:19) Nothing By Mouth (09/06/21 Lunch) Accucheck Stat ONCE (09/06/21 12:19) Ed Iv/Invasive Line Start (09/06/21 12:19) Ed Iv/Invasive Line Start (09/06/21 12:19) Vital Signs Stroke Patient Q15M (09/06/21 12:19) Ct Head Wo-R/O Stroke (09/06/21 12:19) O2 (09/06/21 12:19) Intake & Output 06,14,22 (09/06/21 12:19) Monitor-Rhythm Ecg Trace Only (09/06/21 12:19) Dysphagia Screening Tool (09/06/21 12:19) Post Thrombolytic Adminstratio (09/06/21 12:19) Lipid Panel (09/07/21 06:00) Ed Iv/Invasive Line Start (09/06/21 12:46) Ns Iv 1000 Ml (Sodium Chloride 0.9%) (09/06/21 13:00) Ct Angio Head/Neck (09/06/21 12:46) Iohexol Injection (Omnipaque 350 Mg/Ml 1 (09/06/21 13:15) Received Contrast (Hold Metformin- Contr (09/06/21 13:15) Ns (Ivpb) (Sodium Chloride 0.9% Ivpb Bag (09/06/21 13:15) Mri Brain W/O Contrast (09/06/21 14:34) Medications Given in ED Current Medications Medications Dose Ordered Sig/Pro Route Start Time Stop Time Status Last Admin Dose Admin Iohexol 100 ml ONCE ONCE IV 09/06/21 13:15 09/06/21 13:17 DC 09/06/21 13:22 80 ML Sodium Chloride 100 ml ONCE ONCE IV 09/06/21 13:15 09/06/21 13:17 DC 09/06/21 13:22 80 ML Vital Signs/I&O 09/06/21 12:09 Temp 36.1 Pulse 83 Resp 18 B/P (MAP) 145/83 (103) Pulse Ox 98 O2 Delivery Room Air Progress Progress Note : Time: 12:33 Progress Note AcuteStroke activation at 1219. Suspect TIA. CT does not demonstrate intracranial bleed. Blood sugar was 90. No significant elevated hypertension. EKG and telemetry did not demonstrate atrial fibrillation. 1235: Discussed the case with Dr. Ball, stroke neurologist on-call at [facility]. Because she is so certain of the timing we are outside of the 4-1/2-hour window for TPA and her symptoms are very mild. He recommends against TPA at this time. He does however recommend a routine work-up and CTA. He is in agreement with placement of the loop recorder. We did review a CT angiogram from a previous stroke 1 year ago in 2019 which demonstrated proximal branches of the left M2 MCA complete occlusion. He recommends maximizing medical therapy at this time. He thinks with therapy her symptoms should significantly improve. Initial ECG Impression Date: Sep 06, 2021 Initial ECG Impression Time: 12:23 Initial ECG Rate: 65 Initial ECG Rhythm: Normal Sinus Initial ECG Intervals: Normal Initial ECG Impression: Normal Initial ECG Comparisson: Unchanged Comment Normal sinus rhythm without clinically relevant ST elevation or depression. Diagnostic Imaging Diagonstic Imaging: CT Plain Films/CT/US/NM/MRI: head Comments No acute intracranial hemorrhage, mass-effect, midline shift or tumor. [facility], [place] NAME: GEORGETTE ARGUETA [facility] REC#: [id number] PT STATUS: REG ER : 1960 PHYSICIAN: LIBORIO SMITH MD ADMIT DATE: 09/06/21/ER Draft Date of Exam:09/06/21 CT HEAD WO-R/O STROKE CLINICAL INDICATIONS: Patient with stroke-like symptoms. Neuro deficit. EXAM: Axial CT scan of the brain performed without IV contrast. High-resolution axial CT brain images with sagittal and coronal reformations were also created. Auto Exposure Controls were utilized during the CT exam to meet ALARA standards for radiation dose reduction. COMPARISON: Head CT without contrast dated 03/06/2020. FINDINGS: There is no evidence of acute cerebral infarct, intracranial hemorrhage, or gross mass effect. The brain parenchymal volume appears appropriate for patient's age. There is normal driscoll-white matter distinction. There is no significant midline shift or herniation. There is no evidence of hydrocephalus. The basal cisterns are unremarkable. The skull, extracranial soft tissue, and orbits are unremarkable. The paranasal sinuses are unremarkable. Temporal bones show no significant abnormality. IMPRESSION: Unremarkable CT scan of the brain for age. There is no dense vessel sign. Results of this report were discussed with Dr. Liborio Smith via the telephone on 09/06/2021 at 1355 hours. Dictated on workstation # [id number] Dict: 09/06/21 1233 Trans: 09/06/21 1401 [id number] Interpreted by: GERTRUDE CHACON MD Electronically signed by: Reviewed: Reviewed by Me, Niki w/Radiologist Diagonstic Imaging: Xray Plain Films/CT/US/NM/MRI: chest Comments NAME: GEORGETTE ARGUETA [facility] REC#: [id number] PT STATUS: REG ER : 1960 PHYSICIAN: LIBORIO SMITH MD ADMIT DATE: 09/06/21/ER Draft Date of Exam:09/06/21 CHEST 1 VIEW, AP/PA ONLY INDICATION: Neurological deficit, stroke like symptoms. TECHNIQUE: Single view chest 12:39 PM. CORRELATION STUDY: 05/14/2020 FINDINGS: Electronic Loop recorder device projects over left hilum. Heart size and mediastinum are stable. Vasculature is very slightly more prominent from prior but without overt failure. Mild calcification aortic arch. Slight increased opacity in the right lung base medially. Remaining lung duran otherwise clear. IMPRESSION: 1. Vasculature slightly increased but without overt failure. 2. Slight increased markings at the right lung base medially may reflect minimal atelectasis, edema and/or early infiltrate. Follow-up imaging if clinically warranted. Dictated on workstation # [id number] Dict: 09/06/21 1239 Trans: 09/06/21 1242 [id number] Interpreted by: CHRIS LOPEZ DO Electronically signed by: Reviewed: Reviewed by Me Diagonstic Imaging: CT Plain Films/CT/US/NM/MRI: head (neck angiogram) Comments No acute findings. The old obstructions seen on CTA from last year have cleared in the M2 branch of left MCA. [facility] [place] NAME: GEORGETTE ARGUETA [facility] REC#: [id number] PT STATUS: REG ER : 1960 PHYSICIAN: LIBORIO SMITH MD ADMIT DATE: 09/06/21/ER Draft Date of Exam:09/06/21 CT ANGIO HEAD/NECK CLINICAL INDICATION: Patient with stroke-like symptoms. Neuro deficit. EXAMS: 1: Head CT with and without IV contrast. Auto Exposure Controls were utilized during the CT exam to meet ALARA standards for radiation dose reduction. 2: CT angiogram of the head and neck performed with 100 cc of Omnipaque 350 IV contrast. Sagittal and coronal MIP reformations were created for better visualization of vascular anatomy. CT angiogram was post-processed using RAPID LVO detection to include quantitative measurements of cerebral blood flow and automated results notification to the stroke and/or neurointerventional team. COMPARISON: Head CT without contrast dated 09/06/2021. CT angiogram of the head/neck dated 03/06/2020. FINDINGS: HEAD CT: Stable appearance of the head CT with no interval acute cerebral infarct, intracranial hemorrhage, brain herniation, or midline shift. There is no abnormal IV contrast enhancement. There is no hydrocephalus. Basal cisterns are unremarkable. The extracranial soft tissue, skull, and orbits are unremarkable. The remainder of this exam shows no significant interval change compared to the prior study of comparison. CT ANGIOGRAM: There is dense contrast bolus within the right subclavian vein and superior vena cava which causes streak artifact obscuring portions of the aortic arch and proximal great vessels. Three-vessel aortic arch is seen. The bilateral subclavian arteries, bilateral common carotid arteries, bilateral cervical ICA, and bilateral ECA are patent. Stable vascular irregularity with beading involving the [id number] cervical right ICA is seen, likely related to fibromuscular dysplasia. There is no significant stenosis or pseudoaneurysm. The petrous, cavernous, and supraclinoid ICA are patent. The bilateral A1 ACAs and distal branches are patent. The right MCA and distal branches are patent. The previously seen occluded vessels in the left M2 MCA region has resolved. There is now contrast opacification within them. There is no new large vessel occlusion or significant stenosis in the interim. The bilateral cervical vertebral arteries are patent. The right PICA and left AICA-PICA is patent. The intradural bilateral vertebral arteries are patent. The basilar artery, bilateral superior cerebellar arteries, and bilateral INVESTIGATIONS CONSULTANT are patent. Dural venous sinuses are patent. The neck soft tissue structures show no significant abnormality. Absent left thyroid lobe noted. There is an 8 mm nodule within the right thyroid lobe. There are degenerative spurs involving the cervical spine. IMPRESSION: 1: There is no CT evidence of acute intracranial process. There is no abnormal IV contrast enhancement. 2: CT angiogram of the [place] and neck shows no large vessel occlusion. There is no significant stenosis or aneurysm. 3: Previously seen vascular occlusion of two left M2 MCA vessels in the left sylvian fissure region has resolved and are now patent. 4: Stable wzq-ht-cpsizr cervical right ICA findings related to fibromuscular dysplasia. Results of this report were discussed with Dr. Liborio Smith via the telephone on 09/06/2021 at 1355 hours. Dictated on workstation # [id number] Dict: 09/06/21 1345 Trans: 09/06/21 1411 [id number] Interpreted by: GERTRUDE CHACON MD Electronically signed by: Reviewed: Reviewed by Me, Discussed w/Radiologist Diagonstic Imaging: MRI Plain Films/CT/US/NM/MRI: head Comments [facility] [place] NAME: GEORGETTE ARGUETA [facility] REC#: [id number] PT STATUS: ADM IN : 1960 PHYSICIAN: LIBORIO SMITH MD ADMIT DATE: 09/06/21 Signed Date of Exam:09/06/21 MRI BRAIN W/O CONTRAST Clinical indication: Patient having confusion and trouble getting the correct words out. Patient states she had previous stroke in 2019 when a doctor went through her femoral artery and dissolved a blood clot. Exam: MRI of the brain performed without IV contrast. Sequences include axial DWI, ADC map, axial gradient echo, axial T2, axial FLAIR, axial T1, and sagittal T1. Comparison: Head CT and CT angiogram of the head and neck dated 09/06/2021. Head CT without contrast dated 04/25/2020. Findings: There is no evidence of acute cerebral infarct, intracranial hemorrhage, or gross mass effect. There is no diffusion restriction seen. There is a small area of high T2 signal involving the posterior left insular cortex. This area may be chronic and seen subtly on the prior head CT dated 04/25/2020. There are several focal areas of high T2 signal white matter changes involving both frontal lobes. The brain parenchymal volume appears appropriate for patient's age. There is normal driscoll-white matter distinction. There is no significant midline shift or herniation. There is no evidence of hydrocephalus. The basal cisterns are unremarkable. The skull, extracranial soft tissue, and orbits are unremarkable. There is minimal mucosal thickening involving the ethmoid sinus. Temporal bones show no significant abnormality. IMPRESSION: 1: There is a small area of high T2 signal involving the posterior left insular/frontal lobe region measuring 9 mm in greatest axial dimension. It appears as though this area may have been present on the prior head CT dated 04/25/2021. This area is suspected to be chronic. Comparison to prior MRI of the brain, if available would better evaluate for chronicity. 2: Otherwise, there is no evidence of acute intracranial process. 3: There are age-related brain parenchymal changes including small vessel ischemic disease. Dictated by: Dictated on workstation # [id number] Dict: 09/06/21 1551 Trans: 09/06/21 1700 [facility] [id number] Interpreted by: GERTRUDE CHACON MD Electronically signed by: GERTRUDE CHACON MD 09/06/21 1700 Reviewed: Reviewed by Me Departure Communication (Admissions) Time/Spoke to Admitting Phy: 13:57 left 1357 Called back 1408. ED provider missed call. 1430 Dr. Corbett accepts the patient to the floor on telemetry with MRI on the way up and consultation to Dr. Pitts. Time/Spoke to Consulting Phy: 14:08 Discussed the case with cardiology, Dr. Pitts. He agrees to consult. He agrees with recommendation for aspirin 325 mg daily Impression Primary Impression: TIA (transient ischemic attack) Disposition: ADMITTED INPATIENT Condition: Stable Admissions Decision to Admit Reason: Admit from ER (General) Decision to Admit/Date: Sep 06, 2021 Time/Decision to Admit Time: 13:55 Departure-Patient Inst. Referrals: SILVINA LIMON MD (PCP/Family) Primary Care Physician LIBORIO SMITH Sep 06, 2021 12:27
[2021-09-06 12:28] LABS: ALBUMIN 4.4 GM/DL (3.2-4.5); CHLORIDE 105 MMOL/L (98-107); POTASSIUM 3.8 MMOL/L (3.6-5.0); SODIUM 140 MMOL/L (135-145)
[2021-09-06 12:29] LABS: CALCIUM 9.1 MG/DL (8.5-10.1)
[2021-09-06 12:30] LABS: GLUCOSE 98 MG/DL (70-105); TOTAL PROTEIN 7.3 GM/DL (6.4-8.2)
[2021-09-06 12:31] LABS: CARBON DIOXIDE 25 MMOL/L (21-32)
[2021-09-06 12:32] LABS: BILIRUBIN,TOTAL 0.5 MG/DL (0.1-1.0)
[2021-09-06 12:33] LABS: FIBRIN DEGRADATION PRODUCTS 0.51 UG/ML (0.00-0.49); PROTHROMBIN TIME PATIENT 13.2 SEC (12.2-14.7)
[2021-09-06 12:34] LABS: ALKALINE PHOSPHATASE 112 U/L (40-136); CREATININE SERUM 0.77 MG/DL (0.60-1.30); GFR ESTIMATED 76
[2021-09-06 12:35] LABS: BUN/CREATININE RATIO 17
[2021-09-06 12:37] LABS: ALANINE AMINOTRANSFERASE 13 U/L (0-55)
--- NOTE | 2021-09-06 12:43 | Diagnostic Imaging Report ---
INDICATION: Neurological deficit, stroke like symptoms. TECHNIQUE: Single view chest 12:39 PM. CORRELATION STUDY: 05/14/2020 FINDINGS: Electronic Loop recorder device projects over left hilum. Heart size and mediastinum are stable. Vasculature is very slightly more prominent from prior but without overt failure. Mild calcification aortic arch. Slight increased opacity in the right lung base medially. Remaining lung oshea otherwise clear. IMPRESSION: 1. Vasculature slightly increased but without overt failure. 2. Slight increased markings at the right lung base medially may reflect minimal atelectasis, edema and/or early infiltrate. Follow-up imaging if clinically warranted. Dictated by: Dictated on workstation # [id number]
[2021-09-06] MEDS ORDERED: NS IV 1000 ML 1,000 ML IV SCH (13:00)
[2021-09-06] MEDS ORDERED: HOLD METFORMIN - RECEIVED CONTRAST 20 ML VIAL IV SCH (13:15)
[2021-09-06] MEDS ORDERED: IOHEXOL 350 MG/ML 100 ML (OMNIPAQUE 350) VIAL IV ONE (13:15)
[2021-09-06] MEDS ORDERED: NS 100 ML (IVPB) BAG IV ONE (13:15)
--- NOTE | 2021-09-06 14:01 | Diagnostic Imaging Report ---
CLINICAL INDICATIONS: Patient with stroke-like symptoms. Neuro deficit. Patient with blurred vision and difficulty talking. EXAM: Axial CT scan of the brain performed without IV contrast. High-resolution axial CT brain images with sagittal and coronal reformations were also created. Auto Exposure Controls were utilized during the CT exam to meet ALARA standards for radiation dose reduction. COMPARISON: Head CT without contrast dated 03/06/2020. FINDINGS: There is no evidence of acute cerebral infarct, intracranial hemorrhage, or gross mass effect. The brain parenchymal volume appears appropriate for patient's age. There is normal driscoll-white matter distinction. There is no significant midline shift or herniation. There is no evidence of hydrocephalus. The basal cisterns are unremarkable. The skull, extracranial soft tissue, and orbits are unremarkable. The paranasal sinuses are unremarkable. Temporal bones show no significant abnormality. IMPRESSION: Unremarkable CT scan of the brain for age. There is no dense vessel sign. Results of this report were discussed with Dr. Liborio Smith via the telephone on 09/06/2021 at 1355 hours. Dictated by: Dictated on workstation # [id number]
--- NOTE | 2021-09-06 14:11 | Diagnostic Imaging Report ---
CLINICAL INDICATION: Patient with stroke-like symptoms. Neuro deficit. Patient with blurred vision and difficulty talking. EXAMS: 1: Head CT with and without IV contrast. Auto Exposure Controls were utilized during the CT exam to meet ALARA standards for radiation dose reduction. 2: CT angiogram of the head and neck performed with 100 cc of Omnipaque 350 IV contrast. Sagittal and coronal MIP reformations were created for better visualization of vascular anatomy. CT angiogram was post-processed using RAPID LVO detection to include quantitative measurements of cerebral blood flow and automated results notification to the stroke and/or neurointerventional team. COMPARISON: Head CT without contrast dated 09/06/2021. CT angiogram of the head/neck dated 03/06/2020. FINDINGS: HEAD CT: Stable appearance of the head CT with no interval acute cerebral infarct, intracranial hemorrhage, brain herniation, or midline shift. There is no abnormal IV contrast enhancement. There is no hydrocephalus. Basal cisterns are unremarkable. The extracranial soft tissue, skull, and orbits are unremarkable. The remainder of this exam shows no significant interval change compared to the prior study of comparison. CT ANGIOGRAM: There is dense contrast bolus within the right subclavian vein and superior vena cava which causes streak artifact obscuring portions of the aortic arch and proximal great vessels. Three-vessel aortic arch is seen. The bilateral subclavian arteries, bilateral common carotid arteries, bilateral cervical ICA, and bilateral ECA are patent. Stable vascular irregularity with beading involving the dwu-xb-gklylt cervical right ICA is seen, likely related to fibromuscular dysplasia. There is no significant stenosis or pseudoaneurysm. The petrous, cavernous, and supraclinoid ICA are patent. The bilateral A1 ACAs and distal branches are patent. The right MCA and distal branches are patent. The previously seen occluded vessels in the left M2 MCA region has resolved. There is now contrast opacification within them. There is no new large vessel occlusion or significant stenosis in the interim. The bilateral cervical vertebral arteries are patent. The right PICA and left AICA-PICA is patent. The intradural bilateral vertebral arteries are patent. The basilar artery, bilateral superior cerebellar arteries, and bilateral ELECTRONICS SCALE TESTER are patent. Dural venous sinuses are patent. The neck soft tissue structures show no significant abnormality. Absent left thyroid lobe noted. There is an 8 mm nodule within the right thyroid lobe. There are degenerative spurs involving the cervical spine. IMPRESSION: 1: There is no CT evidence of acute intracranial process. There is no abnormal IV contrast enhancement. 2: CT angiogram of the [place] and neck shows no large vessel occlusion. There is no significant stenosis or aneurysm. 3: Previously seen vascular occlusion of two left M2 MCA vessels in the left sylvian fissure region has resolved and are now patent. 4: Stable rch-ot-wtbhkj cervical right ICA findings related to fibromuscular dysplasia. Results of this report were discussed with Dr. Liborio Smith via the telephone on 09/06/2021 at 1355 hours. Dictated by: Dictated on workstation # [id number]
[2021-09-06 14:36] LABS: BILIRUBIN,URINE NEGATIVE (NEGATIVE); CLARITY,URINE CLEAR; COLOR,URINE YELLOW; GLUCOSE, URINE (UA) NEGATIVE (NEGATIVE); KETONES,URINE NEGATIVE (NEGATIVE); LEUKOCYTE ESTERASE ,URINE TRACE (NEGATIVE); NITRITE,URINE NEGATIVE (NEGATIVE); PH,URINE 7.5 (5-9); PROTEIN,URINE NEGATIVE (NEGATIVE)
[2021-09-06 14:44] LABS: BACTERIA,URINE NEGATIVE /HPF; SQUAMOUS EPITHELIAL CELL,UR 0-2 /HPF
[2021-09-06 16:00] VITALS: BP 123/59
--- NOTE | 2021-09-06 16:12 | Diagnostic Imaging Report ---
Clinical indication: Patient having confusion and trouble getting the correct words out. Patient states she had previous stroke in 2019 when a doctor went through her femoral artery and dissolved a blood clot. Exam: MRI of the brain performed without IV contrast. Sequences include axial DWI, ADC map, axial gradient echo, axial T2, axial FLAIR, axial T1, and sagittal T1. Comparison: Head CT and CT angiogram of the head and neck dated 09/06/2021. Head CT without contrast dated 04/25/2020. Findings: There is no evidence of acute cerebral infarct, intracranial hemorrhage, or gross mass effect. There is no diffusion restriction seen. There is a small area of high T2 signal involving the posterior left insular cortex. This area may be chronic and seen subtly on the prior head CT dated 04/25/2020. There are several focal areas of high T2 signal white matter changes involving both frontal lobes. The brain parenchymal volume appears appropriate for patient's age. There is normal driscoll-white matter distinction. There is no significant midline shift or herniation. There is no evidence of hydrocephalus. The basal cisterns are unremarkable. The skull, extracranial soft tissue, and orbits are unremarkable. There is minimal mucosal thickening involving the ethmoid sinus. Temporal bones show no significant abnormality. IMPRESSION: 1: There is a small area of high T2 signal involving the posterior left insular/frontal lobe region measuring 9 mm in greatest axial dimension. It appears as though this area may have been present on the prior head CT dated 04/25/2021. This area is suspected to be chronic. Comparison to prior MRI of the brain, if available would better evaluate for chronicity. 2: Otherwise, there is no evidence of acute intracranial process. 3: There are age-related brain parenchymal changes including small vessel ischemic disease. Dictated by: Dictated on workstation # [id number]
[2021-09-06] MEDS ORDERED: ACETAMINOPHEN 650 MG SUPP (TYLENOL) PR PRN (16:30)
[2021-09-06] MEDS ORDERED: CATHETER FLUSH 10 ML SYR IV PRN (16:30)
[2021-09-06] MEDS ORDERED: ONDANSETRON 4 MG/2 ML (SDV) Z0FRAN IV PRN (16:30)
[2021-09-06] MEDS ORDERED: ENOXAPARIN 40 MG/0.4 ML (LOVENOX) SYR SC SCH (16:30)
[2021-09-06] MEDS ORDERED: ACETAMINOPHEN 325 MG TABLET PO PRN (16:30)
[2021-09-06] MEDS ORDERED: FLU QUADRIvalent (3YOA+) 60 mcg/0.5 ml 2021-22(AFLURIA) IM ONE (18:30)
[2021-09-06 20:06] VITALS: BP 121/65
[2021-09-06] MEDS ORDERED: MELATONIN 3 MG TABLET PO PRN (20:45)
[2021-09-06] MEDS ORDERED: HYDROcodone/APAP 5 MG/325 MG (LORTAB) TAB PO PRN (20:45)
[2021-09-06] MEDS ORDERED: ACETAMINOPHEN 500 MG TAB (TYLENOL) PO PRN (20:45)
[2021-09-06] MEDS ORDERED: traZODone 50 MG (DESYREL) TAB PO SCH (21:00)
[2021-09-06] MEDS: polyethylene glycoL POWDER 17 GM (MIRALAX) PACK PO SCH (21:25)
[2021-09-06] MEDS: SENNA W/DOCUSATE (SENOKOT S) TABLET PO SCH (21:25)
[2021-09-07 00:04] VITALS: BP 93/60
[2021-09-07 01:30] VITALS: BP 99/54
[2021-09-07] MEDS: CATHETER FLUSH 10 ML SYR IV SCH ×2 (01:54→06:12)
[2021-09-07 04:00] VITALS: BP 103/62
[2021-09-07 05:52] LABS: BASOPHILS % (AUTO) 1 % (0-10); EOSINOPHILS # (AUTO) 0.1 10^3/uL (0.0-0.3); EOSINOPHILS % (AUTO) 3 % (0-10); HEMATOCRIT 39 % (35-52); HEMOGLOBIN 12.7 g/dL (11.5-16.0); LYMPHOCYTES # (AUTO) 1.9 10^3/uL (1.0-4.0); LYMPHOCYTES % (AUTO) 47 % (12-44); MEAN CORPUSCULAR HEMOGLOBIN 31 pg (25-34); MEAN CORPUSCULAR HGB CONC 33 g/dL (32-36); MEAN CORPUSCULAR VOLUME 95 fL (80-99); MEAN PLATELET VOLUME 10.5 fL (9.0-12.2); MONOCYTES # (AUTO) 0.3 10^3/uL (0.0-1.0); MONOCYTES % (AUTO) 7 % (0-12); NEUTROPHILS # (AUTO) 1.8 10^3/uL (1.8-7.8); NEUTROPHILS % (AUTO) 43 % (42-75); PLATELET COUNT 182 10^3/uL (130-400); WHITE BLOOD COUNT 4.2 10^3/uL (4.3-11.0)
[2021-09-07 06:00] LABS: CALCIUM 8.6 MG/DL (8.5-10.1)
[2021-09-07 06:04] LABS: CREATININE SERUM 0.72 MG/DL (0.60-1.30)
[2021-09-07] MEDS ORDERED: ACETAMINOPHEN 325 MG TABLET PO PRN (07:00)
[2021-09-07] MEDS ORDERED: LEVOTHYROXINE 75 MCG (LEVOTHROID) TABLET PO SCH (07:00)
[2021-09-07 08:00] VITALS: BP 114/72
[2021-09-07] MEDS ORDERED: ASPIRIN E.C. 325 MG (ECOTRIN) TABLET PO SCH (09:00)
[2021-09-07] MEDS: polyethylene glycoL POWDER 17 GM (MIRALAX) PACK PO SCH (09:01)
[2021-09-07] MEDS: SENNA W/DOCUSATE (SENOKOT S) TABLET PO SCH (09:04)
--- NOTE | 2021-09-07 09:16 | Diagnostic Imaging Report ---
Clinical Indication: Patient with TIA. Exam: Portable chest x-ray upright view. Comparisons: Chest x-ray dated 09/06/2021. Findings: Lungs/pleura: Lungs are clear. There is no pneumothorax. There is no pleural effusion. Mediastinum: Unremarkable. Pulmonary vasculature: Unremarkable. Heart: Heart size is within normal limits. Loop recorder again seen overlying the left chest region.. Bones/extrathoracic soft tissue: Unremarkable. Impression: Stable chest x-ray exam with no interval radiographic evidence of acute cardiopulmonary process. Dictated by: Dictated on workstation # [id number]
--- NOTE | 2021-09-07 10:12 | Physical Therapy Evaluation ---
PT Evaluation-General Medical Diagnosis Admission Date Sep 06, 2021 at 14:56 Medical Diagnosis: TIA Onset Date: Sep 06, 2021 Therapy Diagnosis Therapy Diagnosis: debility/weakness Height/Weight Height (Feet): 5 Height (Inches): 4.00 Weight (Pounds): 142 Weight (Ounces): 0.0 Precautions Precautions/Isolations: Standard Precautions Weight Bear Status Right Lower Extremity: Right Weight Bearing/Tolerated Left Lower Extremity: Left Weight Bearing/Tolerated Referral Physician: Aric Reason for Referral: Evaluation/Treatment Medical History Pertinent Medical History: CVA, Hypothroidism Current History ER secondary to TIA Reviewed History: Yes Social History Home: [facility] Current Living Status: Spouse Entry Into Home: Stairs With Railing PT Steps Into Home: 3 PT Steps Inside Home: 12 Prior Prior Level of Function SCALE: Activities may be completed with or without assistive devices. 8-Frfhfmowgu-nyjpdia completes the activity by him/herself with no assistance from a helper. 5-Set-up or Clean-up Assistance-helper sets up or cleans up; patient completes activity. [place] assists only prior to or following the activity. 4-Supervision or Touching Assistance-helper provides verbal cues and/or touching/steadying and/or contact guard assistance as patient completes activity. Assistance may be provided throughout the activity or intermittently. 3-Partial/Moderate Assistance-helper does LESS THAN HALF the effort. [place] lifts, holds or supports trunk or limbs, but provides less than half the effort. 2-Substantial/Maximal Assistance-helper does MORE THAN HALF the effort. [place] lifts or holds trunk or limbs and provides more than half the effort. 0-Tpftjmvax-liqqui does ALL the effort. Patient does none of the effort to complete the activity. Or, the assistance of 2 or more helpers is required for the patient to complete the activity. If activity was not attempted, code reason: 7-Patient Refused. 9-Not Applicable-not attempted and the patient did not perform the activity before the current illness, exacerbation or injury. 10-Not Attempted due to Environmental Limitations-(lack of equipment, weather restraints, etc.). 88-Not Attempted due to Medical Conditions or Safety Concerns. Bed Mobility: 6 Transfers (B,C,W/C): 6 Gait: 6 Stairs: 6 Indoor Mobility (Ambulation): Independent Stairs: Independent Prior Devices Use: None PT Evaluation-Current Subjective Patient agrees to PT. Patient states she is not having any difficulty with mobility or balance. Objective Patient Orientation: Normal For Age ROM/Strength ROM Lower Extremities bilateral LE WFL Strength Lower Extremities 5/5 grossly bilateral LE Integumentary/Posture Bowel Incontinence: No Bladder Incontinence: No Posture WFL Neuromuscular (Tone, Coordination, Reflexes) grossly intact Sensory Vision: Wears Glasses Hearing: Functional Transfers Roll Left to Right (QC): 6 Sit to Lying (QC): 6 Lying to Sitting/Side of Bed(Q: 6 Sit to Stand (QC): 6 Chair/[place] Xfer(QC): 6 Gait Does the Patient Walk?: Yes Mode of Locomotion: Walk Anticipated Mode of Locomotion: Walk Walk 10 feet (QC): 6 Walk 50 ft with 2 Turns(QC): 6 Walk 150 ft (QC): 6 Walking 10ft/uneven surface-QC: 6 Distance: 800' Gait Assistive Device: None Comments/Gait Description safe and functional with no deviation Wheelchair Training Does the Pt Use a Wheelchair?: No Stairs #of Steps: 12 1 Step (curb) (QC): 6 4 Steps (QC): 6 12 Steps (QC): 6 Balance Sitting Static: Normal Sitting Dynamic: Normal Standing Static: Normal Standing Dynamic: Normal Picking up an Object (QC): 6 Assessment/Needs Patient currently at [facility] with all gross motor skills safely and does not require skilled therapy intervention. Rehab Potential: Good PT Plan Treatment/Plan Treatment Plan: Discontinue PT, goals met Treatment Duration: Sep 07, 2021 Frequency: 1 time per week Estimated Hrs Per Day: .25 hour per day Patient and/or Family Agrees t: Yes Discharge Recommendations Therapy Discharge Recommendati: Home & Family Time/GCodes Time In: 901 Time Out: 913 Total Billed Treatment Time: 12 Total Billed Treatment 1 visit EVLowC 12 min SANDRA MICHAEL PT Sep 07, 2021 10:12
--- NOTE | 2021-09-07 11:19 | Occ Therapy Progress Note ---
Therapy Progress Note OT order received, chart reviewed. PT screened pt. Pt. up ad joon. Independent with all needs in room. No OT warranted at this time. Thank you for this referral. 1119 VINNY MAK OT Sep 07, 2021 11:19
--- NOTE | 2021-09-07 11:50 | Short Stay Summary-Hospitalist ---
History of Present Illness HPI/Chief Complaint Chief complaint: TIA versus stroke History present illness: This is a 61-year-old white female who had a prior stroke in 2019 who presented to the ER with dysarthria and expressive aphasia. She was brought to the ER after attempting to go to her primary care provider but they told her to go to the ER then she went to urgent care of which they sent her to the ER and stroke protocol initiated but symptoms had resolved. MRI obtained which showed no evidence of any new stroke. At this current time she is ready to go home. She has not been taking her aspirin every day as instructed so she will become compliant with that. Source: patient Exam Limitations: no limitations Date Seen 09/07/21 Time Seen by a Provider: 11:15 Attending Physician Rena Corbett Julie A MD Referring Physician Date of Admission Sep 06, 2021 at 14:56 Home Medications & Allergies Home Medications Reviewed patient Home Medication Reconciliation performed by pharmacy medication reconciliations network operations technician and/or nursing. Patients Allergies have been reviewed. Allergies Allergies Coded Allergies No Known Drug Allergies (Verified05/09/20) Past Cvcvejz-Tiozeq-Ktmvlt Hx Patient Social History Marrital Status: Employed/Student: employed Tobacco Use?: No Smoking Status: Never a Smoker Use of E-Cig and/or Vaping dev: No Substance use?: No Alcohol Use?: No Alcohol Frequency: Once in a while Pt feels they are or have been: No Immunizations Up To Date First/Initial COVID19 Vaccinat: 03/22/21 Second COVID19 Vaccination [place]: 04/25/21 Tetanus Booster (TDap): More Than 5 Years Hepatitis A: Yes Hepatitis B: Yes Seasonal Allergies Seasonal Allergies: Yes Current Status status: No status: No Advance Directives: No Communicates: Verbally Primary Language: Uzbek Preferred Spoken Language: Uzbek Is interpretation needed?: No Sensory deficits: Vision impairment Implanted or Applied Medical D: Other Past Medical History Surgeries: Bladder Surgery, Hysterectomy, Thyroidectomy 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 Sexually Transmitted Disease: No HIV/AIDS: No Chronic Constipation Hypothyroidsim Anxiety Blood Disorders: No Family Medical History Cardiovascular disease 19 MOTHER G8 BROTHER Completed stroke 19 MOTHER Diabetes mellitus 19 FATHER G8 SISTER Hypertension 19 MOTHER G8 BROTHER Myocardial infarction 19 MOTHER Thyroid disease G8 SISTER Review of Systems Constitutional: see HPI, malaise, weakness EENTM: no symptoms reported Respiratory: no symptoms reported Cardiovascular: no symptoms reported Gastrointestinal: no symptoms reported Genitourinary: no symptoms reported Musculoskeletal: no symptoms reported Skin: no symptoms reported Psychiatric/Neurological: No Symptoms Reported All Other Systems Reviewed Negative Unless Noted: Yes Physical Exam Physical Exam Vital Signs Vital Signs - First Documented 09/06/21 12:09 Temp 36.1 Pulse 83 Resp 18 B/P (MAP) 145/83 (103) Pulse Ox 98 O2 Delivery Room Air Capillary Refill : Less Than 3 Seconds Height, Weight, BMI Height: 5'4.00" Weight: 142lbs. 0.0oz. 64.097692iu; 22.61 BMI Method: General Appearance: No Apparent Distress, WD/WN Eyes: Bilateral Eye Normal Inspection, Bilateral Eye PERRL HEENT: PERRL/EOMI, Normal ENT Inspection, Pharynx Normal Neck: Full Range of Motion, Normal Inspection, Non Tender, Supple, Carotid Bruit Respiratory: Chest Non Tender, Lungs Clear, Normal Breath Sounds, No Accessory Muscle Use, No Respiratory Distress Cardiovascular: Regular Rate, Rhythm, No Edema, No Gallop, No JVD, No Murmur, Normal Peripheral Pulses Gastrointestinal: Normal Bowel Sounds, No Organomegaly, No Pulsatile Mass, Non Tender, Soft Back: Normal Inspection, No CVA Tenderness, No Vertebral Tenderness Extremity: Normal Capillary Refill, Normal Inspection, Normal Range of Motion, Non Tender, No Calf Tenderness, No Pedal Edema Neurologic/Psychiatric: Alert, Oriented x3, No Motor/Sensory Deficits, Normal Mood/Affect Skin: Normal Color, Warm/Dry Lymphatic: No Adenopathy Results Results/Procedures Labs Laboratory Tests 09/06/21 12:13 09/07/21 05:29 Patient resulted labs reviewed. Short Stay Diagnosis Discharge Diagnosis-Short Stay Admission Diagnosis Assessment: TIA Former stroke Final Discharge Diagnosis Assessment: TIA likely due to aspirin noncompliance Former stroke Conclusion Plan Maintain aspirin therapy Discharge home Diagnosis/Problems Diagnosis/Problems (1) TIA (transient ischemic attack) Status: Acute Clinical Quality Measures Stroke: Date of last known well: Sep 06, 2021 Time of last known well: 08:00 Symptoms onset unknown: No RENA CORBETT DO Sep 07, 2021 11:50
[2021-09-07 12:00] VITALS: BP_SYST 114; BP_SYST 128; BP_DIAS 65; BP_DIAS 84
--- NOTE | 2021-09-07 12:06 | Consultation-Cardiology ---
HPI-Cardiology Cardiology Consultation: Date of Consultation 09/07/2021 Date of Admission 09/07/2021 Attending Physician Rena Corbett DO Admitting Physician Yahaira Clark MD Consulting Physician SHARLA CASAS JR, MD HPI: Time Seen by a Provider: 12:01 Chief Complaint: Reason for consultation: Possible transient ischemic attack. I had the pleasure of seeing Domitila on the medical unit at [facility] in [place], [place] this morning. She has a history of mild, nonobstructive coronary artery disease and a previous stroke in 2019. She has an implantable loop recorder in place that has not showed any atrial fibrillation. Yesterday she felt fine when she woke up in the morning but then sat down to her computer to start working and could not remember how to use the computer or login. She went to wake up with her to let him know that she did not feel right, and then she noticed she had trouble speaking. She had to concentrate to form her words and sentences. She called her primary provider to see if she could get an appointment but they recommended she come to the emergency room. Instead, she went to a walk-in care facility who also told her to come to the emergency room. She then had her drive her to our emergency room. Overnight, her expressive aphasia has almost essentially resolved. She denies any other neurologic symptoms. She denies chest pain, dyspnea, paroxysmal nocturnal dyspnea, orthopnea, palpitations, lightheadedness, syncope, or ankle edema. Because of the possible transient ischemic attack, a cardiology consultation was requested. She also told me that 2 or 3 months ago she ran out of aspirin and forgot to buy a new bottle. She has not been taking aspirin for at least the past 2-3 months. Certain portions of this document may have been dictated utilizing voice recognition technology. Inherent to this technology, typographical and grammatical errors may exist. As much as I am diligent to identify and correct these mistakes, some errors may remain in the document. Review of Systems-Cardiology Review of Systems Other comments Review of 10 organ systems is as per the history of present illness, otherwise negative. All Other Systems Reviewed Negative Unless Noted: Yes QGM-Guzjeu-Nizrbg Hx Patient Social History Marrital Status: Smoking Status: Never a Smoker Have you traveled recently?: No Alcohol Use?: Yes Pt feels they are or have been: No Immunizations Up To Date Tetanus Booster (TDap): Unknown Past Medical History PMH As described under Assessment. Family Medical History Family History: Cardiovascular disease 19 MOTHER G8 BROTHER Completed stroke 19 MOTHER Diabetes mellitus 19 FATHER G8 SISTER Hypertension 19 MOTHER G8 BROTHER Myocardial infarction 19 MOTHER Thyroid disease G8 SISTER Allergies and Home Medications Allergies Coded Allergies: No Known Drug Allergies (Verified , 05/09/20) Patient Home Medication List Home Medication List Reviewed: Yes Aspirin (Aspir 81) 81 Mg Tablet.dr, 81 MG PO DAILY, (Reported) Entered as Reported by: ANGELICA SO on 05/09/20 1045 Atorvastatin Calcium (Atorvastatin Calcium) 20 Mg Tablet, 20 MG PO DAILY, (Reported) Entered as Reported by: ANGELICA SO on 05/09/20 104 Last Action: Continued Cephalexin (Keflex) 500 Mg Capsule, 500 MG PO BID Prescribed by: VIRAJ YUN on 05/27/202117 Levothyroxine Sodium (Levothyroxine Sodium) 75 Mcg Tablet, 75 MCG PO DAILY, (Reported) Entered as Reported by: BRENT DAIGLE on 04/30/16 1149 Last Action: Continued Trazodone HCl (Trazodone HCl) 50 Mg Tablet, 100 MG PO HS, (Reported) Entered as Reported by: BRENT DAIGLE on 04/30/16 114 Last Action: Continued Exam Vital Signs Vital Signs Date Time Temp Pulse Resp B/P (MAP) Pulse Ox O2 Delivery O2 Flow Rate FiO2 09/07/21 08:01 97 Room Air 09/07/21 08:00 35.0 53 16 114/72 (86) Physical Exam General: Alert. No acute distress. Well nourished and appears stated age. Eye: Extraocular movements are intact. Conjunctivae are clear. There are no xanthelasma. HENT: Normocephalic. Atraumatic. Carotid pulsations 2/2 without bruits. Neck: Jugular venous pressure does not appear elevated. No thyromegaly appreciated. Respiratory: Lungs are clear to auscultation. Respirations are non-labored. Breath sounds are equal. Symmetrical chest wall expansion. Cardiovascular: Normal rate. Regular rhythm. No murmur. No gallop. Point of maximal impulse is not appear displaced. Good pulses equal in all extremities. No edema. Gastrointestinal: Soft. Normal bowel sounds. Skin: Skin turgor is normal. There is no pallor. Musculoskeletal: No kyphosis or scoliosis appreciated. Neurologic: Alert and oriented to person, place, time. She has very mild expressive aphasia. Cranial nerves 3-12 appear grossly intact. The patient has good motor tone strength in the upper and lower extremities bilaterally. Psychiatric: Cooperative. Appropriate mood & affect. Labs Laboratory Tests Test 09/06/21 12:13 09/06/21 14:27 09/07/21 05:29 Range/Units White Blood Count 6.1 4.2 L 4.3-11.0 10^3/uL Red Blood Count 4.73 4.07 3.80-5.11 10^6/uL Hemoglobin 14.9 12.7 11.5-16.0 g/dL Hematocrit 45 39 35-52 % Mean Corpuscular Volume 95 95 80-99 fL Mean Corpuscular Hemoglobin 32 31 25-34 pg Mean Corpuscular Hemoglobin Concent 33 33 32-36 g/dL Red Cell Distribution Width 12.5 12.6 10.0-14.5 % Platelet Count 224 182 130-400 10^3/uL Mean Platelet Volume 10.2 10.5 9.0-12.2 fL Immature Granulocyte % (Auto) 0 0 % Neutrophils (%) (Auto) 55 43 42-75 % Lymphocytes (%) (Auto) 37 47 H 12-44 % Monocytes (%) (Auto) 6 7 0-12 % Eosinophils (%) (Auto) 2 3 0-10 % Basophils (%) (Auto) 1 1 0-10 % Neutrophils # (Auto) 3.4 1.8 1.8-7.8 10^3/uL Lymphocytes # (Auto) 2.2 1.9 1.0-4.0 10^3/uL Monocytes # (Auto) 0.3 0.3 0.0-1.0 10^3/uL Eosinophils # (Auto) 0.1 0.1 0.0-0.3 10^3/uL Basophils # (Auto) 0.1 0.0 0.0-0.1 10^3/uL Immature Granulocyte # (Auto) 0.0 0.0 0.0-0.1 10^3/uL Prothrombin Time 13.2 12.2-14.7 SEC INR Comment 1.0 0.8-1.4 Activated Partial Thromboplast Time 25 24-35 SEC D-Dimer 0.51 H 0.00-0.49 UG/ML Sodium Level 140 139 135-145 MMOL/L Potassium Level 3.8 4.0 3.6-5.0 MMOL/L Chloride Level 105 109 H 98-107 MMOL/L Carbon Dioxide Level 25 21 21-32 MMOL/L Anion Gap 10 9 5-14 MMOL/L Blood Urea Nitrogen 13 10 7-18 MG/DL Creatinine 0.77 0.72 0.60-1.30 MG/DL Estimat Glomerular Filtration Rate 76 82 BUN/Creatinine Ratio 17 14 Glucose Level 98 90 70-105 MG/DL Glucometer 90 70-110 MG/DL Calcium Level 9.1 8.6 8.5-10.1 MG/DL Corrected Calcium 8.8 8.5-10.1 MG/DL Total Bilirubin 0.5 0.1-1.0 MG/DL Aspartate Amino Transf (AST/SGOT) 16 5-34 U/L Alanine Aminotransferase (ALT/SGPT) 13 0-55 U/L Alkaline Phosphatase 112 40-136 U/L Troponin I < 0.028 <0.028 NG/ML Total Protein 7.3 6.4-8.2 GM/DL Albumin 4.4 3.2-4.5 GM/DL Urine Color YELLOW Urine Clarity CLEAR Urine pH 7.5 5-9 Urine Specific [place] 1.010 L 1.016-1.022 Urine Protein NEGATIVE NEGATIVE Urine Glucose (UA) NEGATIVE NEGATIVE Urine Ketones NEGATIVE NEGATIVE Urine Nitrite NEGATIVE NEGATIVE Urine Bilirubin NEGATIVE NEGATIVE Urine Urobilinogen 0.2 < = 1.0 MG/DL Urine Leukocyte Esterase TRACE H NEGATIVE Urine RBC (Auto) NEGATIVE NEGATIVE Urine RBC NONE /HPF Urine WBC 2-5 /HPF Urine Squamous Epithelial Cells 0-2 /HPF Urine Crystals NONE /LPF Urine Bacteria NEGATIVE /HPF Urine Casts NONE /LPF Urine Mucus NEGATIVE /LPF Urine Culture Indicated NO Triglycerides Level 61 <150 MG/DL Cholesterol Level 165 < 200 MG/DL LDL Cholesterol Direct 111 1-129 MG/DL VLDL Cholesterol 12 5-40 MG/DL HDL Cholesterol 47 40-60 MG/DL ECG Impression ECG Comment Sinus rhythm with nonspecific intraventricular conduction delay and possible old septal myocardial infarction. Diagnosis/Problems Diagnosis/Problems (1) TIA (transient ischemic attack) Status: Acute Assessment & Plan: She seems to have suffered a possible transient ischemic attack. Her MRI of the brain did not show any new stroke. I reviewed her loop recorder interrogations for the past 6 months and there has been no evidence of atrial fibrillation. I would question whether or not stopping her aspirin 3 months ago may have contributed to the current neurologic symptoms. I recommend she resume aspirin and continue on statin medication. There is no indication for oral anticoagulation at this point in time. I would not restart clopidogrel since her symptoms could be explained by her inadvertently stopping aspirin. From a cardiac standpoint, the patient can be discharged home. I will have my office get in touch with her to schedule a follow-up appointment in the near future with her regular cloth mercerizer operator in my office, Dr. Zavaleta. (2) History of cerebrovascular accident Assessment & Plan: As above, she has an implantable loop recorder in place and there has been no evidence of atrial fibrillation. As such, there is no indication for changing her aspirin over to oral anticoagulation. We will continue to monitor her loop recorder in our office. (3) Coronary artery disease without angina pectoris Assessment & Plan: She is not having any angina. As with the probable transient ischemic attack (4) Mixed hyperlipidemia Assessment & Plan: Continue statin medication. SHARLA CASAS JR, MD Sep 07, 2021 12:06
[2021-09-07 13:10] VITALS: BP 114/65
== END 2021-09-07 13:10 | disposition home or self-care (01) | DRG 69 ==
LOC: EDUNIT# 12:07 → ER 12:09 → EDLOC 14:56 → 4TH 14:56
PROVIDERS: ADMIT Internal Medicine; ATTEND Internal Medicine
DX: G45.9 Transient cerebral ischemic attack, unspecified (principal); R29.702 NIHSS score 2; E78.2 Mixed hyperlipidemia; E89.0 Postprocedural hypothyroidism; F41.9 Anxiety disorder, unspecified; K59.09 Other constipation; I25.10 Atherosclerotic heart disease of native coronary artery without angina pectoris; H54.7 Unspecified visual loss; Z79.890 Hormone replacement therapy; Z91.14 Patient's other noncompliance with medication regimen; Z79.899 Other long term (current) drug therapy; Z86.73 Personal history of transient ischemic attack (TIA), and cerebral infarction without residual deficits
CPT/HCPCS: 36415; 70450; 70496; 70498; 70551; 71045; 80048; 80053; 80061; 81000; 82947; 84484; 85025; 85379; 85610; 85730; 93005; 93041; 94760; G0378